=== PATIENT | female | born 1975 | race Caucasian/White ===

== ENCOUNTER 2019-05-07 10:14 | Observation (INO) | payer OTHER, SELFPAY ==
[2019-05-07] VITALS (7 sets, daily range): BP systolic 119–198; BP diastolic 60–99; PULSE 65–103; RESP 16–18; TEMP 36.4–37.6; O2SAT 96–99; BMI 31.3
--- NOTE | ~2019-05-07 | CT_ITS ---
EXAMINATION: CT abdomen pelvis w con INDICATION: Abdominal pain and vomiting TECHNIQUE: Computed tomographic images of the abdomen and pelvis were obtained after the administrati on of 100 cc of Omnipaque 350 intravenous contrast. The dose-length product (DLP) was 680.61 mGy-cm. Automated exposure control and iterative reconstruction technique were employed. COMPARISON: 06/16/2016 FINDINGS: Timing of the scan is delayed due to patient vomiting. The lung bases are clear. The heart size is normal. There is an 11 mm cyst in the right hepatic lobe. The spleen, pancreas, gallbladder, and adrenal glands are normal. The kidneys are unremarkable. The appendix is normal. No pathologicall y enlarged abdominal or pelvic lymph nodes are identified. There is no free intraperitoneal gas or ev idence of bowel obstruction. There is mild lumbar spondylosis. An IUD is present in expected positio n in the uterus. IMPRESSION: 1. No CT correlate for the patient's symptoms. Reviewed, dictated and finalized at location A. [facility]
--- NOTE | ~2019-05-07 | CT_ITS ---
EXAMINATION: CT brain wo con DATE: 05/08/2019 11:13 INDICATION: Headache and nausea and vomiting for 2 days TECHNIQUE: Computed tomography (CT) of the head was performed without intravenous contrast. The mA wa s adjusted according to patient size. Iterative reconstruction technique was employed. Exam dose: 52 9.67 mGy-cm total exam DLP. COMPARISON: None FINDINGS: No intracranial mass lesion or hemorrhage or cerebrovascular accident is evident. No midlin e shift or mass effect. No subdural or epidural hematoma. Normal ventricular size. No fracture or bone destruction of the cranial vault. The mastoid air cells and included paranasal si nuses are normally developed and aerated. IMPRESSION: No significant abnormality Reviewed, dictated and finalized at Location A. Reviewed, dictated and finalized at location B. [facility] IMPRESSION: No significant abnormality
--- NOTE | ~2019-05-07 | XR_ITS ---
XR chest 2V DATE: 05/08/2019 11:23 INDICATION: Nausea and vomiting, diarrhea. Headache. TECHNIQUE: PA and lateral views COMPARISON: None FINDINGS: Normal heart size. No hilar or mediastinal enlargement. No pulmonary infiltrate or consolid ation, pleural effusion or pulmonary vascular congestion or pneumothorax. IMPRESSION: No active cardiopulmonary disease Reviewed, dictated and finalized at location B. [facility]
[2019-05-07] MEDS: SODIUM CHLORIDE 0.9% IV 1,000 ML 999 ML IV CONT ×2 (10:32→12:24)
[2019-05-07] MEDS: ONDANSETRON INJ 4 MG/2 ML VIAL IV PUSH ×2 (10:32→12:35)
[2019-05-07 10:43] LABS: Basophils Absolute Auto 0.05 K/mm3 (0.00-0.10); Basophils Percent Auto 0.3 % (0.0-1.0); Eosinophils Absolute Auto 0.01 K/mm3 (0.02-0.50); Eosinophils Percent Auto 0.1 % (1.0-6.0); Hemoglobin 13.9 g/dL (12.0-15.0); Immature Granulocyte Absolute 0.14 K/mm3 (0.00-0.00); Immature Granulocyte Percent A 0.8 % (0.0-0.0); Lymphocytes Absolute Auto 1.96 K/mm3 (1.10-4.50); Lymphocytes Percent Auto 11.3 % (18.0-42.0); Mean Corpuscular HGB Conc 35.6 g/dL (32.0-36.0); Mean Corpuscular Hemoglobin 30.3 pg (27.0-31.0); Mean Corpuscular Volume 85.2 fL (78.0-102.0); Mean Platelet Volume 10.3 fl (9.2-11.8); Monocytes Absolute Auto 1.21 K/mm3 (0.10-0.90); Neutrophils Percent Auto 80.5 % (50.0-70.0); Platelet Count Result 428 K/mm3 (150-420); Red Blood Count 4.58 M/mm3 (4.20-5.40); Red Cell Distribution Width 11.9 % (11.6-14.4); White Blood Count 17.3 K/mm3 (4.8-10.8)
[2019-05-07] MEDS: PANTOPRAZOLE SODIUM IV 40 MG VIAL IV PUSH (10:51)
[2019-05-07 10:57] LABS: Add Urine Microscopic? YES; Appearance Urine Sl Cloudy (Clear); Bilirubin Urine 1+ (Negative); Blood Urine 3+ (Negative); Color Urine Yellow (Yellow); Glucose Urine UA Negative (Negative); Ketones Urine 2+ (Negative); Leukocyte Esterase Ur Negative LEU/UL (Negative); Nitrate Urine Negative (Negative); Protein Urine 2+ (Negative); Specific Grav Ur >= 1.030 (1.010-1.020); Urobilinogen Urine 0.2 mg/dL (0.2-1.0)
--- NOTE | 2019-05-07 10:58 | ED.NAVMDI ---
HPI - Nausea/Vomiting/Diarrhea General Chief complaint: Nausea/Vomiting/Diarrhea Stated complaint: AMBULANCE Time Seen by Provider: 05/07/19 10:30 Source: patient and EMS Mode of arrival: EMS Limitations: no limitations History of Present Illness HPI Narrative: Amelia is a 43-year-old female patient. She presents to the emergency room by ambulance from home. She states that she has been sick since yesterday since about 5:30 a.m. she has had nausea and vomiting. Initially it had some food material in it and then it is mostly clear and yellowish she has had numerous episodes of emesis. Now she has mainly retching. She has had some diarrhea, maybe 3-4 times, none today. She has some abdominal cramps with bouts of emesis. No history of cough or fever. No urinary symptoms. No one else at home has similar symptoms. MD elicited complaint: nausea, vomiting and diarrhea Pertinent past history: other ( history of depression) Onset (ago): day(s) ( since yesterday) Description of vomiting: watery Description of diarrhea: watery Associated nausea: Yes Associated abdominal pain: Yes Location of pain: diffuse Radiation: other ( no radiation. Just has intermittent generalized cramps.) Pain consistency: intermittent Severity: mild Quality: cramping Exacerbating factors: none Relieving factors: none Associated symptoms: other ( See HPI narrative for details) Treatment prior to arrival: none Related Data Home Medications Medication Instructions Recorded Confirmed gabapentin 300 mg PO HS 05/07/19 05/07/19 sertraline 75 mg PO HS 05/07/19 05/07/19 Allergies Allergy/AdvReac Type Severity Reaction Status Date / Time Penicillins AdvReac Redness of Verified 05/07/19 10:52 Skin Review of Systems Review of Systems: All systems reviewed & are unremarkable except as noted in HPI and below Constitutional: Constitutional: Reports no additional constitutional complaints, Denies chills and Denies fever(s) Eyes: Eyes: Reports no additional eye complaints and Denies change in vision ENT: Reports system reviewed and no additional complaints, except as documented, Denies dysphagia, Denies vertigo, Denies dizziness, Denies nasal congestion and Denies sore throat Cardiovascular: Cardiovascular: Reports no additional cardiovascular complaints, Denies chest pain and Denies radiating jaw, neck or arm pain Respiratory: Respiratory: Reports no additional respiratory complaints, Denies cough, Denies dyspnea and Denies wheezing Gastrointestinal: Gastrointestinal: Reports no additional gastrointestinal complaints, Reports diarrhea, Reports nausea and Reports vomiting Comments: abdominal cramps, intermittent, mild Genitourinary: Genitourinary: Reports no additional female genitourinary complaints, Denies hematuria and Denies dysuria Musculoskeletal: Musculoskeletal: Reports no additional musculoskeletal complaints, Denies back pain and Denies muscle cramps Integumentary/Breasts: Skin/Breast: Reports system reviewed and no additional complaints, except as docu, Denies erythema and Denies rash Neurologic: Reports system reviewed and no additional complaints, except as documented, Denies confusion, Denies vertigo, Denies dizziness, Denies syncope and Denies weakness Psychiatric: Psychiatric: Reports no additional psychiatric complaints and Reports depression Endocrine: Endocrine: Reports no additional endocrine complaints, Denies polydipsia and Denies polyuria Hematologic/Lymphatic: Hematologic/Lymphatic: Reports no additional hematologic/lymphatic complaints, Denies easy bleeding and Denies easy bruising Allergic/Immunologic: Allergic/Immunologic: Reports no additional allergic/immunologic complaints [facility] Past Medical History Medical History (Updated 05/07/19 @ 12:54 by Oswaldo Hernandez MD) Depression Radius/ulna fracture Family History Family History (Updated 05/07/19 @ 11:09 by Oswaldo Hernandez MD) Mother No problems noted.
[2019-05-07 11:02] LABS: Alanine Aminotransferase 18 U/L (14-59); Albumin Level 4.2 g/dL (3.4-5.0); Alkaline Phosphatase 73 U/L (46-116); Anion Gap 18.2 mmol/L (7-16); Aspartate Amino Transferase 19 U/L (15-37); Bilirubin,Total 0.6 mg/dL (0.00-1.00); Blood Urea Nitrogen 19 mg/dL (7-18); Calcium 9.3 mg/dL (8.5-10.1); Carbon Dioxide 21 mmol/L (21-32); Chloride 104 mmol/L (98-108); Estimated Glomerular Filt Rate 53; Glucose 150 mg/dL (70-99); Lipase 517 U/L (73-393); Osmolality Calculated 295 mOsm/kg (285-295); Potassium 3.2 mmol/L (3.5-5.1); Sodium 140 mmol/L (136-145); Total Protein 8.2 g/dL (6.4-8.2)
[2019-05-07 11:03] LABS: Bacteria Urine 1+ /hpf; Mucus Urine Moderate /lpf; Squamous Epithelial Cell Urine Moderate /hpf (Few); WBC Urine 0-3 /hpf (0-3)
[2019-05-07 11:18] LABS: Amylase 87 U/L (25-115)
[2019-05-07] MEDS: KCL 20 MEQ/SW 100 ML 100 ML 50 MEQ IVPB (12:25)
[2019-05-07] MEDS: SODIUM CHLORIDE 0.9% IV 1,000 ML 125 ML IV CONT ×2 (13:14→18:43)
[2019-05-07 13:21] LABS: Magnesium 1.6 mg/dL (1.8-2.4)
--- NOTE | 2019-05-07 13:30 | PC.NURSE ---
Patient brought to floor from ED per stretcher. Ambulated to bed. Oriented to room and floor. Call light within reach
--- NOTE | 2019-05-07 13:53 | PC.NURSE ---
Patient in bed resting quietly, denies nausea at this time
--- NOTE | 2019-05-07 14:29 | PC.NURSE ---
Patient in bed resting, IV fluids and potassium infusing. VSS. Sinus rhythm per telemetry
--- NOTE | 2019-05-07 15:36 | PM.IMHP ---
H&P: HPI History of Present Illness Chief complaint: AMBULANCE Narrative: Amelia Burkett is a 43 year old female THAT PRESENTED TO EMERGENCY ROOM TODAY COMPLAINING OF NAUSEA VOMITING AND DIARRHEA THAT SHE DEVELOPED YESTERDAY. SHE HAS A PAST HISTORY DEPRESSION AND MIGRAINE HEADACHES. ACCORDING TO PATIENT SHE HAS A HISTORY OF MIGRAINE HEADACHES THAT SHE IS NOT BEING TREATED FOR . SHE ALSO NOTED THAT SHE HAD 3-4 DIARRHEA bm BEFORE ADMISSION. HER VOMITING CONSISTED OF FOOD ORIGINALLY, SHE IS NOW MAINLY RETCHING. PATIENT ALSO NOTES THAT SHE USES CANNABIS ON REGULAR BASIS. SHE ALSO NOTED THAT SHE EXPERIENCES THIS ONCE A YEAR AND WHENEVER SHE GETS A CT COMPLETED OF HER abd NOTHING IS FOUND. SHE ALSO NOTED THAT WHEN SHE WAS YOUNGER SHE SUSTAINED AND INJURED TO HER NECK WHICH CAUSED HER TO HAVE MIGRAINE HEADACHES. SHE ALSO COMPLAINS OF HEADACHE TODAY. HER VITAL SIGNS AT THIS TIME ARE 96.6, 71, 18, 96% ON ROOM AIR, 133/65. PATIENT IS BEING ADMITTED FOR GASTROENTERITIS VERSUS CANNABINOID HYPEREMESIS SYNDROME, AND DEHYDRATION . WE WILL CONTINUE TO GIVE THE PATIENT CIPRO ANTIBIOTIC FOR THE ELEVATED BLOOD COUNT OF 17.3 ON ADMISSION, SHE WILL ALSO RECEIVE A MAG AND POTASSIUM RIDER FOR HYPO MAGNESIUM 1.6 AND HYPOKALEMIA WITH A POTASSIUM OF 3.2.PATIENT DENIES SOB, CP, PALPITATION, EXTREMITY NUMBNESS, LIGHTHEADNESS, DIZZINESS, CONSTIPATION, DIARRHEA, OR CHILLS OR FEVER. PATIENT AGREE THAT THEY ARE READY FOR DISCHARGE AND DISCHARGE PLAN. Review of Systems Constitutional: Constitutional: Reports fatigue and Reports poor appetite Cardiovascular: Cardiovascular: Denies chest pain at rest, Denies chest pain with activity and Denies dyspnea on exertion Respiratory: Respiratory: Denies chest congestion, Denies cough, Denies hemoptysis and Denies wheezing Gastrointestinal: Gastrointestinal: Denies abdominal pain, Reports diarrhea, Reports nausea and Reports vomiting Genitourinary: Genitourinary: Reports no additional female genitourinary complaints Musculoskeletal: Musculoskeletal: Reports neck pain Neurologic: Denies confusion, Denies vertigo, Denies dizziness, Denies syncope and Reports headache(s) [facility] Past Medical History Medical History (Updated 05/08/19 @ 13:22 by EDUARDA Allen) Depression Radius/ulna fracture Family History Family History (Updated 05/07/19 @ 11:09 by Oswaldo Hernandez MD) Mother No problems noted. Father No problems noted. Social History Social History (Updated 05/07/19 @ 13:54 by Bonnie Gray RN) Smoking status: Never smoker Additional smoking assessment comments: smoke cigarettes frequency amount unknown Alcohol intake: never Alcohol use details: denies alcohol use Substance use: current Substance use type: does not use and marijuana Other substance usage details: daily Gender identity (if verbalized by the patient): Female Spiritual care concerns: No Agree to blood products: Yes Meds Home Medications and Allergies Home Medications Medication Instructions Recorded Confirmed Type gabapentin 300 mg PO HS 05/07/19 05/07/19 History sertraline 75 mg PO HS 05/07/19 05/07/19 History Allergies Allergy/AdvReac Type Severity Reaction Status Date / Time Penicillins AdvReac Redness of Verified 05/07/19 10:52 Skin Vital Signs Vital Signs - 24 hr 05/07/19 10:24 05/07/19 12:30 05/07/19 13:08 Temperature 37.2 C Pulse Rate 103 H 85 87 Respiratory Rate 16 Blood Pressure 156/99 H 137/75 Pulse Oximetry 99 05/07/19 14:00 Temperature 37.6 C Pulse Rate 74 Respiratory Rate 18 Blood Pressure 119/70 Pulse Oximetry 96 Exam Const: General: ill appearing and uncomfortable Orientation/consciousness: patient oriented x3 Neck: Thyroid: tender Resp: Effort & Inspection: normal respiratory effort Cardio: Palpation: normal PMI Rate: regular rate GI: Inspection: normal to inspection Neuro: General: patient oriented x3
--- NOTE | 2019-05-07 15:45 | PC.NURSE ---
Patient in bed resting comfortably, IV fluids infusing. Patient denies nausea, no emesis since being brought to floor. Sinus rhythm per telemetry
--- NOTE | 2019-05-07 16:45 | PC.NURSE ---
Patient in bed. IV fluids infusing. Sinus rhythm per telemetry. VSS. Denies nausea at this time
--- NOTE | 2019-05-07 17:20 | PC.NURSE ---
Patient sitting in bed, eating supper. Tolerating clear liquids well, no nausea at this time. VSS, sinus rhythm per telemetry
[2019-05-07 17:26] LABS: Alanine Aminotransferase 17 U/L (14-59); Albumin Level 3.5 g/dL (3.4-5.0); Alkaline Phosphatase 61 U/L (46-116); Anion Gap 15.6 mmol/L (7-16); Aspartate Amino Transferase 18 U/L (15-37); Bilirubin,Total 0.5 mg/dL (0.00-1.00); Blood Urea Nitrogen 13 mg/dL (7-18); Carbon Dioxide 23 mmol/L (21-32); Chloride 109 mmol/L (98-108); Estimated CRCL calculation 77 ml/min; Estimated Glomerular Filt Rate > 60; Glucose 94 mg/dL (70-99); Osmolality Calculated 298 mOsm/kg (285-295); Potassium 3.6 mmol/L (3.5-5.1); Sodium 144 mmol/L (136-145); Total Protein 6.9 g/dL (6.4-8.2)
[2019-05-07] MEDS: MAGNESIUM SULF 2 GM/WATER 50ML 2 GM/50 ML BAG IVPB (18:48)
--- NOTE | 2019-05-07 18:50 | PC.NURSE ---
Patient in bed resting, IV fluids infusing. Sinus rhythm per telemetry. Denies nause
--- NOTE | 2019-05-07 19:37 | PC.NURSE ---
Mg started by previous nurse continues to infuse. Cipro to be started when completed. no nausea or vomitng present. Telemetry shows sinus rhythm
[2019-05-07] MEDS: SERTRALINE HCL 50 MG TABLET PO (20:35)
[2019-05-07] MEDS: CIPROFLOXACIN 400 MG/D5W 200ML 200 ML 200 MG IVPB (20:38)
[2019-05-07] MEDS: GABAPENTIN 300 MG CAPSULE PO (20:40)
--- NOTE | 2019-05-07 21:35 | PC.NURSE ---
NS continues at 125/hr, KCL and MG infused. Cipro almost completed . No nausea or vomiting present.
--- NOTE | 2019-05-07 21:38 | PC.NURSE ---
Mg completed. Unable to end medication on JUN. information left for pharmacy. No nausea or vomting. Fluids continue as ordered IV cipro started
--- NOTE | 2019-05-07 21:43 | PC.NURSE ---
Cipro completed. NS continues as ordered. VS stable. Telemetry shows sinus rhythm.
--- NOTE | 2019-05-07 22:55 | PC.NURSE ---
Awake, states has no nausea. No complaints of pain, turns self. NS infusing at 125ml/hr.
[2019-05-07] MEDS: SERTRALINE HCL 25 MG TABLET PO (23:33)
[2019-05-08] VITALS (10 sets, daily range): BP systolic 126–190; BP diastolic 65–90; PULSE 64–96; RESP 16–18; TEMP 35.9–36.9; O2SAT 72–99
--- NOTE | 2019-05-08 00:22 | PC.NURSE ---
Urine collection hat placed in toilet. Patient informed need to measure urine.
--- NOTE | 2019-05-08 01:05 | PC.NURSE ---
Eyes closed. No signs of nausea/vomiting.Telemetry waveform WNL. 1000ml 0.9NS continues @125ml/hr per IV pump.
[2019-05-08] MEDS: SODIUM CHLORIDE 0.9% IV 1,000 ML 125 ML IV CONT ×3 (03:43→21:16)
[2019-05-08] MEDS: ACETAMINOPHEN 325 MG TABLET 650 MG PO (03:48)
--- NOTE | 2019-05-08 04:04 | PC.NURSE ---
Right hand and wrist remain edematous, some decrease in swelling noted. Will continue to elevate right arm/hand on one pillow. Warm [place] applied. Patient instructed to remove blanket if too warm. Fan turned down to low per patient request. States 'must have fan to breathe.
[2019-05-08 06:12] LABS: Basophils Absolute Auto 0.05 K/mm3 (0.00-0.10); Basophils Percent Auto 0.4 % (0.0-1.0); Eosinophils Absolute Auto 0.05 K/mm3 (0.02-0.50); Eosinophils Percent Auto 0.4 % (1.0-6.0); Hematocrit 35.6 % (35.0-49.0); Immature Granulocyte Absolute 0.06 K/mm3 (0.00-0.00); Immature Granulocyte Percent A 0.4 % (0.0-0.0); Lymphocytes Absolute Auto 3.04 K/mm3 (1.10-4.50); Lymphocytes Percent Auto 22.3 % (18.0-42.0); Mean Corpuscular HGB Conc 33.7 g/dL (32.0-36.0); Mean Corpuscular Hemoglobin 29.9 pg (27.0-31.0); Mean Corpuscular Volume 88.6 fL (78.0-102.0); Mean Platelet Volume 10.4 fl (9.2-11.8); Monocytes Absolute Auto 1.15 K/mm3 (0.10-0.90); Monocytes Percent Auto 8.4 % (2.0-11.0); Neutrophils Absolute Auto 9.3 K/mm3 (1.7-7.2); Neutrophils Percent Auto 68.1 % (50.0-70.0); Platelet Count Result 332 K/mm3 (150-420); Red Blood Count 4.02 M/mm3 (4.20-5.40); Red Cell Distribution Width 11.9 % (11.6-14.4); White Blood Count 13.6 K/mm3 (4.8-10.8)
--- NOTE | 2019-05-08 07:21 | PC.NURSE ---
fluids infusing, voiding well, no nausea at this time, states not a breakfast person and would prefer to stay on liquid diet this am, no fever, pulse rate 70's, sinus rhythm, potassium 3.6 denies worsening pain, states about a 3/10, able to keep oral fluids down
[2019-05-08] MEDS: CIPROFLOXACIN 400 MG/D5W 200ML 200 ML 200 MG IVPB ×2 (08:25→21:12)
--- NOTE | 2019-05-08 08:28 | PC.NURSE ---
headache returning, norco given for pain, cipro started, fluids continue, tolerating liquid breakfast
[2019-05-08 08:45] LABS: Magnesium 2.3 mg/dL (1.8-2.4)
[2019-05-08] MEDS: ONDANSETRON INJ 4 MG/2 ML VIAL IV PUSH ×3 (08:56→17:47)
--- NOTE | 2019-05-08 08:57 | PC.NURSE ---
headache improved, nausea started, emesis x1, zofran given
--- NOTE | 2019-05-08 09:02 | PC.NURSE ---
emesis continues, no relief from zofran at this time
[2019-05-08] MEDS: PROCHLORPERAZINE EDISYLATE 10 MG/2 ML VIAL IM (09:39)
--- NOTE | 2019-05-08 09:59 | PC.NURSE ---
Sleeping at this time, no further vomiting at this time, telemetry SR 60's at this time, fluids infusing
--- NOTE | 2019-05-08 10:45 | PC.NURSE ---
No vomiting at this time, telemetry SR 60's, fluids infusing
--- NOTE | 2019-05-08 11:01 | PC.NURSE ---
Awake, up to WC to go to imaging for CT head and CXR, nausea when up and moving
--- NOTE | 2019-05-08 11:30 | PC.NURSE ---
Returned from imaging via WC, fluids infusing, nausea continues, no further emesis at this time
--- NOTE | 2019-05-08 12:00 | PC.NURSE ---
EMesis, new order for reglan obtained, awaiting pharmacy approval, fluids infusing
--- NOTE | 2019-05-08 13:00 | PC.NURSE ---
napping at intervals, nausea continues, no further vomiting noted
[2019-05-08] MEDS: METOCLOPRAMIDE HCL INJ 10 MG/2 ML VIAL 5 MG IV PUSH ×3 (13:19→23:50)
--- NOTE | 2019-05-08 13:24 | PM.IMPN ---
Progress Note: A&P Assessment and Plan (1) Gastroenteritis: Code(s): K52.9 - Noninfective gastroenteritis and colitis, unspecified Status: Acute Assessment and Plan: - PATIENT MAY NPO AND ADVANCE TOLERATED. - CONTINUE ZOFRAN ADDED COMPAZINE - CONTINUE IV TO PREVENT DEHYDRATION. - CONTINUE CIPRO - CONTINUE IMODIUM --CHEST X-RAY, HEAD CT AND CT OF THE ABDOMEN-NEGATIVE (2) Dehydration: Code(s): E86.0 - Dehydration Status: Acute Assessment and Plan: - SECONDARY TO NAUSEA VOMITING AND DEHYDRATION - CONTINUE IV FLUID - CONTINUE ANTI EMESIS AND ANTIDIARRHEA (3) Hypokalemia: Code(s): E87.6 - Hypokalemia Status: Acute Assessment and Plan: - POTASSIUM LEVEL 3.2 ON ADMISSION - K RIDER GIVEN - BMP IN A.M. - WILL REPLACE WITH SUPPLEMENT IF NEEDED (4) Cannabis abuse: Code(s): F12.10 - Cannabis abuse, uncomplicated Status: Acute Assessment and Plan: - PATIENT NOTES SHE USED CANNABIS ON A REGULAR BASIS. - EDUCATED ON THE IMPORTANCE RESTRAINING FROM DRUG USE (5) Cannabis hyperemesis syndrome concurrent with and due to cannabis abuse: Code(s): F12.188 - Cannabis abuse with other cannabis-induced disorder Status: Acute Assessment and Plan: - CONTINUE REGLAN AND ZOFRAN - STARTED LORAZEPAM - START CAPSAICIN AND SUGGEST WARMM SHOWER. (6) Electrolyte imbalance: Code(s): E87.8 - Other disorders of electrolyte and fluid balance, not elsewhere classified Status: Acute Assessment and Plan: - SECONDARY TO DEHYDRATION CAUSED BY NAUSEA VOMITING AND DIARRHEA - REPLACE MAGNESIUM AND POTASSIUM - CHECK ELECTROLYTES DAILY, REPLACE NEEDED Subjective Date/time seen: 05/08/19 13:24 PATIENT CONTINUES TO EXPERIENCE NAUSEA AND DRY HEAVING TODAY DURING HER CLEAR LIQUIDS MEALS THIS AM. SHE DID NOT EXPERIENCE ANY NAUSEA VOMITING OR DIARRHEA OVERNIGHT. SHE DOES DENY ABDOMINAL PAIN BUT HAVE SINCE THEN STARTED TO DEVELOPED HICCUPS. SHE ALSO STILL HAS A HEADACHE. MORE TEST WILL BE COMPLETED TODAY. PATIENT DENIES SOB, CP, PALPITATION, EXTREMITY NUMBNESS, LIGHTHEADNESS, DIZZINESS, CONSTIPATION, D OR CHILLS OR FEVER. Review of Systems Constitutional: Constitutional: Reports fatigue, Reports headache(s), Reports lethargy, Reports poor appetite and Reports weakness ENT: Denies vertigo, Denies dizziness, Reports headache(s) and Reports neck pain Cardiovascular: Cardiovascular: Denies chest pain, Denies chest pain at rest, Denies chest pain with activity, Denies syncope, Denies rapid heart rate, Denies palpitations, Denies dyspnea on exertion and Denies orthopnea Respiratory: Respiratory: Denies chest congestion, Denies cough, Denies hemoptysis, Denies dyspnea, Denies dyspnea on exertion and Denies wheezing Gastrointestinal: Gastrointestinal: Denies abdominal pain, Denies melena, Reports diarrhea, Reports nausea and Reports vomiting Genitourinary: Genitourinary: Reports no additional female genitourinary complaints Musculoskeletal: Musculoskeletal: Reports no additional musculoskeletal complaints and Reports neck pain Neurologic: Denies confusion, Denies vertigo, Denies dizziness, Denies syncope, Reports headache(s), Denies focal weakness, Denies loss of vision and Reports weakness Psychiatric: Psychiatric: Denies confusion Endocrine: Endocrine: Reports fatigue Allergic/Immunologic: Allergic/Immunologic: Denies wheezing Exam Const: General: cooperative, ill appearing and uncomfortable; No confusion Orientation/consciousness: patient oriented x3 and No confusion Neck: Neck: normal visual inspection Thyroid: tender Resp: Effort & Inspection: normal respiratory effort, no cough and not labored Auscultation: clear to auscultation bilaterally Cardio: Jugular venous distension: no JVD Palpation: normal PMI Rate: regular rate GI: Inspection: normal to inspection GI Palp: No abdominal tenderness Auscultation: normal bowel sounds
--- NOTE | 2019-05-08 13:51 | PC.NURSE ---
feels hungry but nausea continues, zofran given, fluids infusing
--- NOTE | 2019-05-08 14:12 | PC.NURSE ---
Telemetry SR 60's, fluids infusing, no vomiting at this time
--- NOTE | 2019-05-08 15:27 | P.HP_ITS ---
H&P: HPI History of Present Illness Chief complaint: AMBULANCE Narrative: Amelia Burkett is a 43 year old female [facility] Past Medical History Medical History (Updated 05/08/19 @ 13:22 by EDUARDA Allen) Depression Radius/ulna fracture Family History Family History (Updated 05/07/19 @ 11:09 by Oswaldo Hernandez MD) Mother No problems noted. Father No problems noted. Social History Social History (Updated 05/07/19 @ 13:54 by Bonnie Gray RN) Smoking status: Never smoker Additional smoking assessment comments: smoke cigarettes frequency amount unknown Alcohol intake: never Alcohol use details: denies alcohol use Substance use: current Substance use type: does not use and marijuana Other substance usage details: daily Gender identity (if verbalized by the patient): Female Spiritual care concerns: No Agree to blood products: Yes Meds Home Medications and Allergies Home Medications Medication Instructions Recorded Confirmed Type gabapentin 300 mg PO HS 05/07/19 05/07/19 History sertraline 75 mg PO HS 05/07/19 05/07/19 History Allergies Allergy/AdvReac Type Severity Reaction Status Date / Time Penicillins AdvReac Redness of Verified 05/07/19 10:52 Skin Vital Signs Vital Signs - 24 hr 05/07/19 16:00 05/07/19 20:00 05/07/19 23:00 Temperature 37.6 C 36.4 C Pulse Rate 76 69 80 Respiratory Rate 18 18 Blood Pressure 198/70 H 138/60 Pulse Oximetry 96 97 05/08/19 00:00 05/08/19 01:36 05/08/19 03:00 Temperature 36.2 C L Pulse Rate 83 72 70 Respiratory Rate 16 Blood Pressure 131/81 Pulse Oximetry 97 05/08/19 04:00 05/08/19 07:14 05/08/19 11:31 Temperature 36.6 C 35.9 C L 36.6 C Pulse Rate 64 72 71 Respiratory Rate 18 18 18 Blood Pressure 150/79 H 133/65 190/90 H Pulse Oximetry 98 96 96 H&P: Results Labs Labs: Short CBC 05/08/19 Range/Units 07:00 WBC 13.6 H (4.8-10.8) K/mm3 Hgb 12.0 (12.0-15.0) g/dL Hct 35.6 (35.0-49.0) % Plt Count 332 (150-420) K/mm3 BMP 05/07/19 17:03 Sodium 144 Potassium 3.6 Chloride 109 H Carbon Dioxide 23 BUN 13 Creatinine 0.87 Glucose 94 Calcium 8.0 L Liver Function 05/07/19 Range/Units 17:03 Total Bilirubin 0.5 (0.00-1.00) mg/dL AST 18 (15-37) U/L ALT 17 (14-59) U/L Alkaline Phosphatase 61 (46-116) U/L Albumin 3.5 (3.4-5.0) g/dL
--- NOTE | 2019-05-08 16:18 | PM.EVENT ---
Event Note Event Note Event Note: On examination this morning the patient stated that she felt much better and was asking for some breakfast. Later in the day however she developed more nausea and vomiting. Abdomen soft, lungs clear, normal cardiovascular exam including full pulses and normal capillary refill. Continue to advance diet. Will hold [place] as a potential cause of worsening nausea. Measures to treat potential cannabis hyperemesis syndrome have been initiated. I have reviewed the chart and examined the patient. I discussed the patient's care with Steffen Lucio APN and agree with her assessment plan.
--- NOTE | 2019-05-08 17:30 | PC.NURSE ---
pt up to restroom to change clothes and freshen up, iv restarted, family in room, pt drinks half of her clear ensure and refuses rest due to bad taste, hob elevated
--- NOTE | 2019-05-08 18:59 | PC.NURSE ---
pt resting in bed, iv running, appears to be sleeping, breathing even
[2019-05-08] MEDS: GABAPENTIN 300 MG CAPSULE PO (21:10)
[2019-05-08] MEDS: SERTRALINE HCL 50 MG TABLET 75 MG PO (21:10)
--- NOTE | 2019-05-08 21:42 | PC.NURSE ---
pt took meds without difficulty, states no pain and nausea is ok but that she has not tried to eat/drink since earlier
--- NOTE | 2019-05-08 23:01 | PC.NURSE ---
pt appears to be sleeping, iv running, no s/sx of n/v, breathing even
[2019-05-09 04:16] VITALS: BP 127/68; PULSE 74; RESP 16; TEMP 36.9; O2SAT 98
[2019-05-09 05:22] LABS: Hematocrit 35.3 % (35.0-49.0); Mean Corpuscular Hemoglobin 29.6 pg (27.0-31.0); Mean Corpuscular Volume 86.9 fL (78.0-102.0); Mean Platelet Volume 10.3 fl (9.2-11.8); Platelet Count Result 322 K/mm3 (150-420); Red Blood Count 4.06 M/mm3 (4.20-5.40); Red Cell Distribution Width 11.6 % (11.6-14.4); White Blood Count 10.5 K/mm3 (4.8-10.8)
[2019-05-09] MEDS: METOCLOPRAMIDE HCL INJ 10 MG/2 ML VIAL 5 MG IV PUSH ×2 (05:43→13:01)
[2019-05-09] MEDS: SODIUM CHLORIDE 0.9% IV 1,000 ML 125 ML IV CONT (05:44)
[2019-05-09 05:56] LABS: Alanine Aminotransferase 20 U/L (14-59); Albumin Level 3.1 g/dL (3.4-5.0); Alkaline Phosphatase 55 U/L (46-116); Anion Gap 11.9 mmol/L (7-16); Aspartate Amino Transferase 20 U/L (15-37); Bilirubin,Total 0.5 mg/dL (0.00-1.00); Blood Urea Nitrogen 8 mg/dL (7-18); Calcium 7.7 mg/dL (8.5-10.1); Carbon Dioxide 25 mmol/L (21-32); Chloride 107 mmol/L (98-108); Estimated CRCL calculation 82 ml/min; Estimated Glomerular Filt Rate > 60; Glucose 93 mg/dL (70-99); Osmolality Calculated 290 mOsm/kg (285-295); Potassium 2.9 mmol/L (3.5-5.1); Sodium 141 mmol/L (136-145); Total Protein 6.4 g/dL (6.4-8.2)
[2019-05-09 08:00] VITALS: BP 136/74; PULSE 68; RESP 16; TEMP 36; O2SAT 97
[2019-05-09] MEDS: CIPROFLOXACIN 400 MG/D5W 200ML 200 ML 200 MG IVPB (08:45)
[2019-05-09 09:23] LABS: Amylase 44 U/L (25-115); Lipase 139 U/L (73-393)
[2019-05-09] MEDS: KCL 20 MEQ/SW 100 ML 100 ML 50 MEQ IVPB (10:34)
--- NOTE | 2019-05-09 11:50 | PM.DS ---
DS: Diagnosis Admitting Diagnosis Admitting Diagnosis: Noninfective gastroenteritis and colitis, unspecified Discharge Diagnosis (1) Gastroenteritis: Code(s): K52.9 - Noninfective gastroenteritis and colitis, unspecified Status: Acute Assessment and Plan: - continue bland diet and avoid dairy products for 7 days - will discharge with Zofran - drink plenty of fluids to prevent dehydration - CONTINUE CIPRO - CONTINUE IMODIUM (2) Dehydration: Code(s): E86.0 - Dehydration Status: Acute Assessment and Plan: - SECONDARY TO NAUSEA VOMITING AND DEHYDRATION - continue to drink plenty of fluids for hydration - CONTINUE ANTI EMESIS AND ANTIDIARRHEA (3) Hypokalemia: Code(s): E87.6 - Hypokalemia Status: Acute Assessment and Plan: - patient infused with K rider before discharge. - patient instructed to follow-up with primary care physician in 1 week to get repeat potassium level (4) Cannabis abuse: Code(s): F12.10 - Cannabis abuse, uncomplicated Status: Acute Assessment and Plan: - PATIENT NOTES SHE USED CANNABIS ON A REGULAR BASIS. - EDUCATED ON THE IMPORTANCE RESTRAINING FROM DRUG USE (5) Cannabis hyperemesis syndrome concurrent with and due to cannabis abuse: Code(s): F12.188 - Cannabis abuse with other cannabis-induced disorder Status: Acute Assessment and Plan: - CONTINUE ZOFRAN (6) Electrolyte imbalance: Code(s): E87.8 - Other disorders of electrolyte and fluid balance, not elsewhere classified Status: Acute Assessment and Plan: - SECONDARY TO DEHYDRATION CAUSED BY NAUSEA VOMITING AND DIARRHEA - follow-up with primary care physician for repeat DS: Summary Hospital Course Hospital Course: admission H&P Amelia Burkett is a 43 year old female THAT PRESENTED TO EMERGENCY ROOM TODAY COMPLAINING OF NAUSEA VOMITING AND DIARRHEA THAT SHE DEVELOPED YESTERDAY. SHE HAS A PAST HISTORY DEPRESSION AND MIGRAINE HEADACHES. ACCORDING TO PATIENT SHE HAS A HISTORY OF MIGRAINE HEADACHES THAT SHE IS NOT BEING TREATED FOR . SHE ALSO NOTED THAT SHE HAD 3-4 DIARRHEA bm BEFORE ADMISSION. HER VOMITING CONSISTED OF FOOD ORIGINALLY, SHE IS NOW MAINLY RETCHING. PATIENT ALSO NOTES THAT SHE USES CANNABIS ON REGULAR BASIS. SHE ALSO NOTED THAT SHE EXPERIENCES THIS ONCE A YEAR AND WHENEVER SHE GETS A CT COMPLETED OF HER abd NOTHING IS FOUND. SHE ALSO NOTED THAT WHEN SHE WAS YOUNGER SHE SUSTAINED AND INJURED TO HER NECK WHICH CAUSED HER TO HAVE MIGRAINE HEADACHES. SHE ALSO COMPLAINS OF HEADACHE TODAY. HER VITAL SIGNS AT THIS TIME ARE 96.6, 71, 18, 96% ON ROOM AIR, 133/65. PATIENT IS BEING ADMITTED FOR GASTROENTERITIS VERSUS CANNABINOID HYPEREMESIS SYNDROME, AND DEHYDRATION . WE WILL CONTINUE TO GIVE THE PATIENT CIPRO ANTIBIOTIC FOR THE ELEVATED BLOOD COUNT OF 17.3 ON ADMISSION, SHE WILL ALSO RECEIVE A MAG AND POTASSIUM RIDER FOR HYPO MAGNESIUM 1.6 AND HYPOKALEMIA WITH A POTASSIUM OF 3.2. today patient nausea vomiting has resolved. Yesterday nausea vomiting occurred due to use of hydrocodone. Patient condition has resolved today Patient able to tolerate all meals , slept well and ambulate at baseline. Patient denies SOB, CP, palpitation, extremity numbness, lightheadness, dizziness, constipation, diarrhea, or chills or fever. Patient agree that they are ready for discharge and discharge plan. Time Spent with Patient Time attestation: Total time spent providing and/or coordinating discharge services: Exam Const: General: cooperative, ill appearing and uncomfortable; No confusion Orientation/consciousness: patient oriented x3 and No confusion Neck: Neck: normal visual inspection Thyroid: tender Resp: Effort & Inspection: normal respiratory effort, no cough and not labored Auscultation: clear to auscultation bilaterally Cardio: Jugular venous distension: no JVD Palpation: normal PMI Rate: regular rate GI: Inspectio
[2019-05-09 12:00] VITALS: BP 132/74; PULSE 70; RESP 18; TEMP 36.1; O2SAT 97
--- NOTE | 2019-05-14 14:31 | PC.NURSE ---
Discharge call back [phone] Understood all DC instructions. Canceled follow-up appointment with PCP because she felt better.
== END 2019-05-09 15:25 | disposition home or self-care (01) ==
LOC: CHSED 12:54 → CHS2ND 13:05
PROVIDERS: Nurse Practitioner; Admitting Provider Surgery; Emergency Provider Surgery; Visit Provider Surgery
DX: E86.0 Dehydration (principal); K52.9 Noninfective gastroenteritis and colitis, unspecified; E87.6 Hypokalemia; E83.42 Hypomagnesemia; F32.9 Major depressive disorder, single episode, unspecified; F12.90 Cannabis use, unspecified, uncomplicated; G43.909 Migraine, unspecified, not intractable, without status migrainosus; Z72.0 Tobacco use
CPT/HCPCS: 36415; 70450; 71046; 74177; 80053; 81001; 82150; 83690; 83735; 85025; 85027; 96361; 96365; 96366; 96367; 96372; 96375; 96376; 99285; A9270; C9113; G0378; G0379; J0744; J0780; J2405; J2765; J3475; J3480; J7030; Q9965

== ENCOUNTER 2020-05-20 08:08 | Outpatient (CLI) | payer OTHER, SELFPAY ==
--- NOTE | ~2020-05-20 | XR_ITS ---
XR_CERV2-3V_CR DATE: 05/20/2020 08:25 INDICATION: Acute neck pain in right side for 2 weeks. No known injury. TECHNIQUE: AP, open-mouth, lateral views COMPARISON: None FINDINGS: There is reversal of cervical curvature. C1 and C2 are normally aligned and the odontoid process is intact. There is minimal anterolisthesis at C4-5. There is moderate degenerative disc disease and prominent anterior spurring at C5-6 There is moderately severe degenerative disc disease and mild retrolisthesis at C6-7. No fracture or dislocation or locked facet or prevertebral soft tissue swelling. IMPRESSION: Reversal cervical curvature Mild anterolisthesis at C4-5 Degenerative disc disease at C5-6 and C6-7 Reviewed, dictated and finalized at [facility]. Reviewed, dictated and finalized at [facility]. [employer]
== END 2020-05-20 08:09 | disposition home or self-care (01) ==
LOC: CHSIMG 08:10
PROVIDERS: PCP Physician Assistant; Visit Provider Physician Assistant
DX: M54.2 Cervicalgia (principal)
CPT/HCPCS: 72040

== ENCOUNTER 2020-12-26 17:41 | Emergency (ER) | payer OTHER, SELFPAY ==
[2020-12-26 17:52] VITALS: BP 141/90; PULSE 89; RESP 16; TEMP 36.6; O2SAT 97
--- NOTE | 2020-12-26 18:04 | ED.WOUNDLAC ---
HPI - Wound/Laceration General Chief Complaint: Wound/Laceration Stated Complaint: CUT FINGER Time Seen by Provider: 12/26/20 17:54 Source: patient and RN notes reviewed Mode of arrival: ambulatory Limitations: no limitations History of Present Illness HPI narrative: superficial left index finger 0.5 cm laceration Onset (ago): hour(s) (1) Extremity Location: Left: hand Place: work Patient tetanus UTD: Yes Context: accidental Associated symptoms: pain Treatments prior to arrival: bandage Related Data Home Medications Medication Instructions Recorded Confirmed gabapentin 300 mg PO HS 05/07/19 12/26/20 sertraline 75 mg PO HS 05/07/19 12/26/20 Allergies Allergy/AdvReac Type Severity Reaction Status Date / Time hydrocodone AdvReac Mild nausea Verified 05/09/19 11:39 vomiting Penicillins AdvReac Redness of Verified 05/07/19 10:52 Skin Review of Systems Review of Systems: All systems reviewed & are unremarkable except as noted in HPI and below Musculoskeletal: Comments: 0.5 cm superficial laceration left index finger PMFSH Past Medical History Medical History (Updated 12/26/20 @ 18:08 by Lam Castillo MD) Depression Radius/ulna fracture Family History Family History (Updated 05/07/19 @ 11:09 by Oswaldo HernandezMD) Mother No problems noted. Father No problems noted. Social History Social History (Updated 05/07/19 @ 13:54 by Bonnie Gray RN) Smoking status: Never smoker Additional smoking assessment comments: smoke cigarettes frequency amount unknown Alcohol intake: never Alcohol use details: denies alcohol use Substance use: current Substance use type: does not use and marijuana Other substance usage details: daily Gender identity (if verbalized by the patient): Female Spiritual care concerns: No Agree to blood products: Yes Exam Const: General: no acute distress Orientation/consciousness: patient oriented x3 HENMT: Head: normal to inspection Ears: external ears normal General nose exam: Normal external nose present and Normal nares present Mouth: Yes moist mucous membranes Eyes: Conjunctivae: conjunctivae normal Pupils: Equal, round and reactive pupils present EOM: EOMs intact bilaterally Neck: Neck: normal visual inspection Chest: Chest palpation & inspection: normal inspection of the chest Resp: Effort & Inspection: normal respiratory effort Auscultation: clear to auscultation bilaterally Cardio: Rate: regular rate Rhythm: regular rhythm GI: GI Palp: Yes Soft to palpation Percussion: Yes normal to percussion Auscultation: normal bowel sounds Back/Spine/Pelvis: Back: no CVA tenderness Skin: General skin exam: normal color Rashes: no rashes Neuro: General: patient oriented x3, moves all extremities, no focal motor deficits and CN's II-XI intact bilaterally Extrem: Other: 0.5 cm laceration well approximated superficial left index finger Psych: Appearance: grossly normal Mental Status: mental status grossly normal Affect: normal affect Attitude: cooperative Thought content: Yes Normal thought content present Course Course Emergency Course: Stable, pain-free patient. Reevaluation(s) Reevaluation #1: Repaired left index finger. Pt for home. Date: 12/26/20 Time: 18:03 Vital Signs Vital signs: Vital Signs Temperature 36.6 C 12/26/20 17:52 Pulse Rate 89 12/26/20 17:52 Respiratory Rate 16 12/26/20 17:52 Blood Pressure 141/90 H 12/26/20 17:52 Pulse Oximetry 97 12/26/20 17:52 Temperature 36.6 C 12/26/20 17:52 Pulse Rate 89 12/26/20 17:52 Respiratory Rate 16 12/26/20 17:52 Blood Pressure 141/90 H 12/26/20 17:52 Pulse Oximetry 97 12/26/20 17:52 Procedures Laceration Laceration 1: Date: 12/26/20 Time: 17:59 Site: upper extremity (left index finger laceration.) Side (If applicable): left Size (cm): 0.5 Description: flap
[2020-12-26 18:07] VITALS: RESP 14; O2SAT 100
== END 2020-12-26 18:07 | disposition home or self-care (01) ==
PROVIDERS: Emergency Provider Emergency Medicine; PCP Physician Assistant
DX: S61.211A Laceration without foreign body of left index finger without damage to nail, initial encounter (principal); W45.8XXA Other foreign body or object entering through skin, initial encounter
CPT/HCPCS: 99283

== ENCOUNTER 2021-07-31 13:14 | Outpatient (CLI) | payer OTHER, SELFPAY ==
--- NOTE | ~2021-07-31 | XR_ITS ---
EXAMINATION: XR ankle LT min 3V DATE: 07/31/2021 13:44 INDICATION: Left ankle pain TECHNIQUE: Anteroposterior, lateral, mortise, and additional oblique view of the ankle were obtained. COMPARISON: None. FINDINGS: There is no fracture, dislocation, or subluxation. Mild osteoarthritis is noted in the midf oot. There are posterior and plantar calcaneal enthesophytes. IMPRESSION: 1. No acute osseous abnormality. Reviewed, dictated and finalized at location [facility].
--- NOTE | ~2021-07-31 | XR_ITS ---
EXAMINATION: XR foot LT min 3V DATE: 07/31/2021 13:44 INDICATION: Lateral ankle and foot pain TECHNIQUE: Dorsoplantar, lateral, and 2 oblique views of the left foot were obtained. COMPARISON: None. FINDINGS: There is no fracture, dislocation, or subluxation. Mild osteoarthritis is noted in the midf oot. There are posterior and plantar calcaneal enthesophytes. IMPRESSION: 1. No acute osseous abnormality. Reviewed, dictated and finalized at location [facility].
== END 2021-07-31 13:15 | disposition home or self-care (01) ==
LOC: CHSLAB 13:16
PROVIDERS: PCP Physician Assistant; Visit Provider Physician Assistant
DX: M25.572 Pain in left ankle and joints of left foot (principal)
CPT/HCPCS: 73610; 73630

== ENCOUNTER 2021-11-17 12:52 | Emergency (ER) | payer OTHER, SELFPAY ==
--- NOTE | ~2021-11-17 | CT_ITS ---
EXAMINATION: CT brain wo con DATE: 11/17/2021 13:44 INDICATION: Head injury, scalp laceration TECHNIQUE: Computed tomography (CT) of the head was performed without intravenous contrast. The mA wa s adjusted according to patient size. Iterative reconstruction technique was employed. Exam dose: 52 9.67 mGy-cm total exam DLP. COMPARISON: 05/08/2019 CT brain FINDINGS: No intracranial mass lesion or hemorrhage or cerebrovascular accident. No midline shift or mass effect. Normal ventricular size. No subdural or epidural hematoma. Orbital contents appear renee l. Minimal right frontal scalp soft tissue swelling. No radiopaque soft tissue foreign body or subcutane ous emphysema. No coup or contrecoup intracranial injury is evident. The mastoid air cells and included paranasal sinuses are unremarkable. IMPRESSION: Mild right frontal scalp soft tissue swelling; no radiopaque foreign body or subcutaneou s emphysema, skull fracture or coup or contrecoup intracranial injury Reviewed, dictated and finalized at [facility]. Reviewed, dictated and finalized at [facility]. IMPRESSION: Mild right frontal scalp soft tissue swelling; no radiopaque forei gn body or subcutaneous emphysema, skull fracture or coup or contrecoup intracr anial injury
--- NOTE | 2021-11-17 13:07 | ED.HEATRA ---
HPI - Head Injury General Chief complaint: Head Injury Stated complaint: hit head on pipe Time Seen by Provider: 11/17/21 13:07 Source: patient Mode of arrival: ambulatory History of Present Illness HPI Narrative: 46-year-old female got up from a sitting position and in the process struck head on a metal pipe 2 hours ago. She presents with -- 1.5 cm laceration over the frontal region. No loss of consciousness. no headache. No vomiting. No focal deficit. no cervical pain. MD Complaint: head injury Onset (ago): hour(s) ( 2 hours ago) Mechanism of Injury: work related injury Place: work Loss of Consciousness: no Location of injury: frontal Quality: sharp Radiation: none Other Injuries: none Related Data Home Medications Medication Instructions Recorded Confirmed gabapentin 300 mg capsule 300 mg PO HS 05/07/19 11/17/21 sertraline 50 mg tablet 75 mg PO HS 05/07/19 11/17/21 Allergies Allergy/AdvReac Type Severity Reaction Status Date / Time hydrocodone AdvReac Mild nausea Verified 11/17/21 13:22 vomiting Penicillins AdvReac Redness of Verified 11/17/21 13:22 Skin Review of Systems Review of Systems: All systems reviewed & are unremarkable except as noted in HPI and below Constitutional: Constitutional: Reports as per HPI and Reports no additional constitutional complaints Eyes: Eyes: Reports as per HPI and Reports no additional eye complaints ENT: Reports system reviewed and no additional complaints, except as documented and Reports as per HPI Cardiovascular: Cardiovascular: Reports as per HPI and Reports no additional cardiovascular complaints Respiratory: Respiratory: Reports as per HPI and Reports no additional respiratory complaints Gastrointestinal: Gastrointestinal: Reports as per HPI and Reports no additional gastrointestinal complaints Genitourinary: Genitourinary: Reports no additional female genitourinary complaints and Reports as per HPI Musculoskeletal: Musculoskeletal: Reports no additional musculoskeletal complaints and Reports as per HPI Integumentary/Breasts: Skin/Breast: Reports system reviewed and no additional complaints, except as docu and Reports as per HPI Comments: 1.5 cm frontal laceration of scalp Neurologic: Reports system reviewed and no additional complaints, except as documented and Reports as per HPI Psychiatric: Psychiatric: Reports no additional psychiatric complaints and Reports as per HPI Endocrine: Endocrine: Reports no additional endocrine complaints and Reports as per HPI Hematologic/Lymphatic: Hematologic/Lymphatic: Reports no additional hematologic/lymphatic complaints and Reports as per HPI Allergic/Immunologic: Allergic/Immunologic: Reports no additional allergic/immunologic complaints and Reports as per HPI PMFSH Past Medical History Medical History Depression Radius/ulna fracture Family History Family History Mother No problems noted. Father No problems noted. Social History Social History Smoking status: Never smoker Additional smoking assessment comments: smoke cigarettes frequency amount unknown Alcohol intake: never Alcohol use details: denies alcohol use Substance use: current Substance use type: does not use and marijuana Other substance usage details: daily Gender identity (if verbalized by the patient): Female Spiritual care concerns: No Agree to blood products: Yes Exam Const: General: healthy appearing and no acute distress Nutritional Appearance: well nourished Orientation/consciousness: patient oriented x3 Limitations: no limitations HENMT: Head: normal to inspection ( 1.5 cm scalp laceration in the frontal) Ears: external ears normal General nose exam: Normal external nose present Face and sinus: normal facial exam
[2021-11-17 13:18] VITALS: BP 151/92; PULSE 85; RESP 18; TEMP 36.7; O2SAT 96
[2021-11-17 15:16] VITALS: BP 117/54; PULSE 72; RESP 16; TEMP 36.4; O2SAT 100
== END 2021-11-17 15:17 | disposition home or self-care (01) ==
PROVIDERS: Emergency Provider Internal Medicine Critical Care Medicine
DX: S01.01XA Laceration without foreign body of scalp, initial encounter (principal); W22.8XXA Striking against or struck by other objects, initial encounter
CPT/HCPCS: 12001; 70450; 99284

== ENCOUNTER 2022-02-07 18:38 | Observation (INO) | payer OTHER, SELFPAY ==
[2022-02-07] VITALS (7 sets, daily range): BP systolic 134–215; BP diastolic 78–104; PULSE 76–87; RESP 14–20; TEMP 36.3–36.8; O2SAT 97–99
--- NOTE | ~2022-02-07 | CT_ITS ---
EXAMINATION: CT abdomen pelvis wo con DATE: 02/07/2022 20:35 INDICATION: Nausea vomiting and diarrhea TECHNIQUE: Computed tomography (CT) of the abdomen and pelvis was performed without intravenous contr ast. The dose-length product (DLP) was 781.98 mGy-cm. Automated exposure control and iterative recons truction technique were employed. COMPARISON: 05/07/2019 FINDINGS: The lung bases are clear. The heart size is normal. There is a 1.5 cm cyst of the right hep atic lobe. The spleen, pancreas, gallbladder, and adrenal glands are normal. The kidneys are unremark able. No pathologically enlarged abdominal or pelvic lymph nodes are identified. There is no free int raperitoneal gas or evidence of bowel obstruction. An IUD is present in the uterus in expected positi on. The appendix is normal. There is questionable mild wall thickening of the transverse colon which is contains minimal stool and gas. There is mild lumbar spondylosis. IMPRESSION: 1. Possible wall thickening of the transverse colon which may be due to incomplete distention versus mild colitis. Reviewed, dictated and finalized at [facility]. IMPRESSION: 1. Possible wall thickening of the transverse colon which may be due to incompl ete distention versus mild colitis.
--- NOTE | 2022-02-07 18:59 | ED.GENADULT ---
HPI - General Adult General Chief complaint: Nausea/Vomiting/Diarrhea Stated complaint: throwing up since early Tuesday morning Source: patient Mode of arrival: ambulatory Limitations: no limitations History of Present Illness HPI narrative: 46-YEAR-OLD WHITE FEMALE COMPLAINING NAUSEA VOMITING DIARRHEA FOR THE LAST 40 HOURS. HX SAME SX YEARLY FOR 10 YEARS. FRIEND THINKS IT MIGHT BE RELATED TO THC USE. CRAMPY ABDOMINAL PAIN INTERMITTENT. PT RELATED PAIN SECONDARY TO CASHEWS SHE ATE. PT RELUCTANT TO ANSWER QUESTIONS Related Data Home Medications Medication Instructions Recorded Confirmed gabapentin 300 mg capsule 300 mg PO HS 05/07/19 02/07/22 sertraline 50 mg tablet 75 mg PO HS 05/07/19 02/07/22 Allergies Allergy/AdvReac Type Severity Reaction Status Date / Time hydrocodone AdvReac Mild nausea Verified 11/17/21 13:22 vomiting Penicillins AdvReac Redness of Verified 11/17/21 13:22 Skin Review of Systems Review of Systems: All systems reviewed & are unremarkable except as noted in HPI and below Constitutional: Constitutional: Reports no additional constitutional complaints Eyes: Eyes: Reports no additional eye complaints ENT: Reports system reviewed and no additional complaints, except as documented Cardiovascular: Cardiovascular: Reports no additional cardiovascular complaints Respiratory: Respiratory: Reports no additional respiratory complaints Gastrointestinal: Gastrointestinal: Reports as per HPI, Reports no additional gastrointestinal complaints, Reports abdominal pain, Denies bloating, Denies constipation, Denies heartburn, Reports diarrhea, Reports nausea and Reports vomiting Genitourinary: Genitourinary: Reports no additional female genitourinary complaints Musculoskeletal: Musculoskeletal: Reports no additional musculoskeletal complaints Integumentary/Breasts: Skin/Breast: Reports system reviewed and no additional complaints, except as docu Neurologic: Reports system reviewed and no additional complaints, except as documented Psychiatric: Psychiatric: Reports no additional psychiatric complaints Hematologic/Lymphatic: Hematologic/Lymphatic: Reports no additional hematologic/lymphatic complaints PMFSH Past Medical History Medical History Depression Radius/ulna fracture Family History Family History Mother No problems noted. Father No problems noted. Social History Social History Smoking status: Never smoker Additional smoking assessment comments: smoke cigarettes frequency amount unknown Alcohol intake: never Alcohol use details: denies alcohol use Substance use: current Substance use type: does not use and marijuana Other substance usage details: daily Gender identity (if verbalized by the patient): Female Spiritual care concerns: No Agree to blood products: Yes Exam Const: General: healthy appearing and alert Nutritional Appearance: well nourished Orientation/consciousness: patient oriented x3 Limitations: behavioral limitations Other: PATIENT RELUCTANT TO ANSWER QUESTIONS FROM THIS EXAMINER. WHITE FEMALE LYING ON HER SIDE EYES CONJUNCTIVA PINK SCLERA NONICTERIC OROPHARYNX CLEAR WITH MOIST MUCOUS MEMBRANES NECK IS SUPPLE NO LYMPHADENOPATHY. LUNGS ARE CLEAR HEART IS REGULAR RATE AND RHYTHM WITHOUT MURMURS GALLOPS OR RUBS. BACK NONTENDER NO CVA TENDERNESS ABDOMEN POSITIVE BOWEL SOUNDS SOFT NONTENDER NO HEPATOSPLENOMEGALY OR MASSES NO CVA TENDERNESS NO HEPATOSPLENOMEGALY OR MASSES. EXTREMITIES NO CYANOSIS CLUBBING OR EDEMA. Course Course Emergency Course: PATIENT RECEIVED 4 MG OF ZOFRAN AND 30 MG OF TORADOL IV AND 1 L OF NORMAL SALINE. 2020 PATIENT FEELS BETTER AFTER THE ABOVE. WILL START HER ON NORMAL SALINE WITH 20 OF KCL PER L AT 500 CC/HOUR 06/07/2004 BR[facility]
--- NOTE | 2022-02-07 19:06 | PC.NURSE ---
REPORT TO ELAYNE MOON, NO QUESTIONS OR CONCERN AT THIS TIME.
[2022-02-07] MEDS: SODIUM CHLORIDE 0.9% IV 1,000 ML 999 ML IV CONT (19:25)
[2022-02-07] MEDS: ONDANSETRON INJ 4 MG/2 ML VIAL IV PUSH (19:25)
[2022-02-07] MEDS: KETOROLAC 30 MG/ML VIAL (*BKC) IV PUSH (19:25)
[2022-02-07 19:38] LABS: Basophils Absolute Auto 0.04 K/mm3 (0.00-0.10); Basophils Percent Auto 0.2 % (0.0-1.0); Eosinophils Absolute Auto 0.01 K/mm3 (0.02-0.50); Eosinophils Percent Auto 0.1 % (1.0-6.0); Hematocrit 42.5 % (35.0-49.0); Hemoglobin 14.5 g/dL (12.0-15.0); Immature Granulocyte Absolute 0.11 K/mm3 (0.00-0.00); Immature Granulocyte Percent A 0.6 % (0.0-0.0); Lymphocytes Percent Auto 9.1 % (18.0-42.0); Mean Corpuscular HGB Conc 34.1 g/dL (32.0-36.0); Mean Corpuscular Hemoglobin 29.6 pg (27.0-31.0); Mean Corpuscular Volume 86.7 fL (78.0-102.0); Mean Platelet Volume 10.6 fl (9.2-11.8); Monocytes Absolute Auto 0.92 K/mm3 (0.10-0.90); Monocytes Percent Auto 5.2 % (2.0-11.0); Neutrophils Absolute Auto 14.9 K/mm3 (1.7-7.2); Neutrophils Percent Auto 84.8 % (50.0-70.0); Platelet Count Result 388 K/mm3 (150-420); Red Cell Distribution Width 12.6 % (11.6-14.4); White Blood Count 17.5 K/mm3 (4.8-10.8)
--- NOTE | 2022-02-07 19:40 | PC.NURSE ---
Care resumed, pt resting c lights dimmed. Assisted pt to BR for urine, UA collected, explained POC and awaiting lab tests for CT that has been ordered.
[2022-02-07 19:42] LABS: Add Urine Microscopic? YES; Appearance Urine Clear (Clear); Bilirubin Urine 1+ (Negative); Blood Urine 3+ (Negative); Color Urine Yellow (Yellow); Glucose Urine UA Negative (Negative); Ketones Urine 3+ (Negative); Leukocyte Esterase Ur Negative LEU/UL (Negative); Nitrate Urine Negative (Negative); Protein Urine 3+ (Negative); Specific Grav Ur >= 1.030 (1.010-1.020); Urobilinogen Urine 0.2 mg/dL (0.2-1.0)
[2022-02-07 19:50] LABS: Amorphous Sediment Urine Heavy; Bacteria Urine 1+ /hpf; Mucus Urine Heavy /lpf; Pregnancy On Board Control Positive; Squamous Epithelial Cell Urine Many /hpf (Few); Urine Pregnancy Test Negative; WBC Urine 0-3 /hpf (0-3)
[2022-02-07 19:53] LABS: Alanine Aminotransferase 17 U/L (14-59); Albumin Level 4.1 g/dL (3.4-5.0); Alkaline Phosphatase 74 U/L (46-116); Anion Gap 13 mmol/L (8-16); Aspartate Amino Transferase 14 U/L (15-37); Bilirubin,Total 0.6 mg/dL (0.00-1.00); Blood Urea Nitrogen 17 mg/dL (7-18); Calcium 9.1 mg/dL (8.5-10.1); Carbon Dioxide 25 mmol/L (21-32); Chloride 100 mmol/L (98-108); Estimated CRCL calculation 64 ml/min; Estimated Glomerular Filt Rate 58; Glucose 131 mg/dL (70-99); Osmolality Calculated 289 mOsm/kg (285-295); Sodium 138 mmol/L (136-145); Total Protein 8.1 g/dL (6.4-8.2)
[2022-02-07 19:56] LABS: Lipase 48 U/L (73-393)
[2022-02-07 20:13] LABS: Ethanol 3 mg/dL (0-6); Magnesium 1.9 mg/dL (1.8-2.4)
[2022-02-07] MEDS: KCL 20MEQ/0.9% SOD CHL 1,000 ML 500 ML IV CONT (20:14)
[2022-02-07 20:16] LABS: Amphetamine Screen Urine Negative (Negative); Barbiturate Screen Urine Negative (Negative); Benzodiazepines Screen Urine Negative (Negative); Cannabinoid Screen Urine Positive (Negative); Cocaine Screen Urine Negative (Negative); Methadone Screen Urine Negative (Negative); Opiate Screen Urine Negative (Negative); Phencyclidine Screen Urine Negative (Negative)
--- NOTE | 2022-02-07 22:06 | PC.NURSE ---
Pt reports feeling much better, more talkative and has no pain at this time. VSS, ERP discussed POC and d/c home c pt.
[2022-02-07] MEDS: ONDANSETRON HCL ODT 4 MG TABLET 8 MG PO (22:24)
--- NOTE | 2022-02-07 22:32 | PC.NURSE ---
Pt is having extreme episodes of vomiting again at this time and doesn't want d/c home, states she will be unable to get her medications and unable to care for herself when feeling this terrible. ERP in to discuss POC for admit. Pt agreeable to admission.
--- NOTE | 2022-02-07 22:50 | PC.NURSE ---
Pt placed in gown and IV restarted per RN. Pt resting, call placed to hospitalist by ERP for admit.
--- NOTE | 2022-02-07 23:07 | PC.NURSE ---
Pts. BP elevated 187/97 orders obtained from ERP.
[2022-02-07] MEDS: PANTOPRAZOLE SODIUM IV 40 MG VIAL 80 MG IV PUSH (23:12)
[2022-02-07] MEDS: cloNIDine HCL 0.1 MG TABLET 0.2 MG PO (23:12)
--- NOTE | 2022-02-07 23:49 | PC.NURSE ---
Marsha Anderson RN called to 2nd floor and spoke w/this RN to let the floor know some history on the pt and the pt will be brought up shortly by the pt critical care rn.
[2022-02-08] VITALS: BP 136/85; PULSE 72; RESP 18; TEMP 37.2; O2SAT 97; BMI 32.3
--- NOTE | 2022-02-08 00:09 | ADMGEN ---
This patient, Amelia Burkett, was admitted to 2nd Floor Room 203-2. Patient oriented to hospital policies and general routines including ID bracelet, bed and alarms, visiting hours, pain management, procedures, bathroom and other care routines, personal items, smoking policy, room service/diet, and visiting hours. Information on how to activate the Rapid Response Team has been discussed. Patient are encouraged to report perceived risks to care and to ask questions if they do not understand what they are told or what they should do.
[2022-02-08] MEDS: CIPROFLOXACIN 400 MG/D5W 200ML 200 ML 200 MG IVPB (00:21)
[2022-02-08] MEDS: metroNIDAZOLE 500 MG/ISO 100ML 500 MG/100 ML BAG 100 MG IVPB ×2 (01:30→08:38)
[2022-02-08] MEDS: GABAPENTIN 300 MG CAPSULE PO (01:30)
--- NOTE | 2022-02-08 01:30 | PC.NURSE ---
Pt stated that she would like her water cup away from her to deter her from drinking fluids too quickly and causing more vomiting. This RN placed the cup by the sink in the room and instructed the pt that if she feels thirsty and her nausea has subsided, the pt should be able to drink fluids slowly at first then normally. Pt verbalized understanding. Side railsx2 and bed in lowest position for pt safety.
[2022-02-08] MEDS: SERTRALINE HCL 25 MG TABLET 75 MG PO (01:31)
[2022-02-08 05:29] LABS: Hematocrit 37.2 % (35.0-49.0); Hemoglobin 12.3 g/dL (12.0-15.0); Mean Corpuscular HGB Conc 33.1 g/dL (32.0-36.0); Mean Corpuscular Hemoglobin 29.2 pg (27.0-31.0); Mean Corpuscular Volume 88.4 fL (78.0-102.0); Mean Platelet Volume 10.7 fl (9.2-11.8); Platelet Count Result 314 K/mm3 (150-420); Red Blood Count 4.21 M/mm3 (4.20-5.40); Red Cell Distribution Width 12.8 % (11.6-14.4); White Blood Count 12.2 K/mm3 (4.8-10.8)
[2022-02-08 08:00] VITALS: BP 116/76; PULSE 72; RESP 16; TEMP 36.6; O2SAT 97
--- NOTE | 2022-02-08 08:31 | PM.SD2 ---
Same Day Admit/Disch: HPI History of Present Illness Chief complaint: NAUSEA VOMITING DIARRHEA ABD PAIN Narrative: Amelia Burkett is a 46 year old female that presented to the emergency department with complaints of nausea vomiting diarrhea and abdominal pain. Patient has a past medical history of depression and radial ulnar fracture. According to patient on Tuesday she ate a large amount of cashew nuts which she believes is the cause of her having abdominal pain and on Tuesday morning she woke up with nausea vomiting and diarrhea with abdominal pain. Patient also has a history of using medical marijuana for her mental illness. She was educated on Cannabinoid hyperemesis syndrome. WBC 17.5, hemoglobin 14.5, mag 2.5, platelets 388, sodium 138, potassium 3.0, BUN 17, creatinine 0.13, glucose 131, total bilirubin 0.6, AST 14, ALT 17, imaging indicated possible colitis. Patient was admitted treated for colitis. Patient notes that her symptoms have improved she is no longer experiencing vomiting. The patient denies SOB, CP, palpitation, extremity numbness, lightheadedness, dizziness, constipation, diarrhea, chills, or fever. Discharge instructions reviewed with patient, as well as provided in writing per nursing staff. The instructions also include specific and strict return/GO TO THE ER as well as f/u information. All questions have been answered, and the patient and/or family deny any further questions with discharge and discharge plan. [facility] Past Medical History Medical History Depression Radius/ulna fracture Family History Family History Mother No problems noted. Father No problems noted. Social History Social History Smoking status: Never smoker Additional smoking assessment comments: smoke cigarettes frequency amount unknown Alcohol intake: never Alcohol use details: denies alcohol use Substance use: current Substance use type: marijuana Other substance usage details: daily Last use: 02/07/2022 Gender identity (if verbalized by the patient): Female Spiritual care concerns: No Agree to blood products: Yes Has the Lack of Transportation Kept You From Medical Appointments or From Getting Medications?: No Within the Past 12 Months, Were You Worried Whether Your Food Would Run Out Before You Got Money to Buy More?: Never True What is Your Housing Situation Today?: I Have Housing Are You Worried That in the Next 2 Months, You May Not Have Your Own Housing to Live In?: No Do You Have Trouble Paying Your Heating Or Electricity Bill?: Yes Do You Have Trouble Paying For Medicines?: No Are You Currently Unemployed and Looking for Work?: No Highest Level of Education Completed: Associate Degree Do You Have Trouble With Childcare or the Care of a Family Member?: No Same Day Admit/Disch: Med Pre-admit Medications Home Medications Medication Instructions Recorded Confirmed Type gabapentin 300 mg capsule 300 mg PO HS 05/07/19 02/07/22 History sertraline 50 mg tablet 75 mg PO HS 05/07/19 02/07/22 History methylprednisolone 4 mg tablets in 4 mg PO DAILY #21 ea 02/07/22 Rx a dose pack (Medrol (Fabio)) ondansetron 4 mg disintegrating 4 mg PO Q4H PRN nausea and 02/07/22 Rx tablet vomiting #14 tabs potassium chloride 20 mEq 20 meq PO DAILY #10 tabs 02/07/22 Rx tablet,extended release(part/cryst) Saccharomyces boulardii 250 mg 250 mg PO BID 7 days #14 caps 02/08/22 Rx capsule (Florastor) ciprofloxacin HCl 250 mg tablet 250 mg PO Q12H 7 days #14 tabs 02/08/22 Rx (Cipro) metronidazole 500 mg tablet 500 mg PO Q12H 7 days #14 tabs 02/08/22 Rx Exam Narrative: GENERAL: This is a well-nourished, well-developed patient, in no apparent distress. HEAD: normocephalic, atraumatic. EYES: PERRL. Sclera clear/white. V
[2022-02-08] MEDS: ENOXAPARIN 40 MG/0.4 ML SYRINGE SUB-Q (08:34)
[2022-02-08] MEDS: PANTOPRAZOLE SODIUM IV 40 MG VIAL IV PUSH (08:35)
[2022-02-08] MEDS: SACCHAROMYCES BOULARDII 250 MG CAPSULE PO (08:38)
--- NOTE | 2022-02-08 12:52 | PC.NURSE ---
Patient discharged information reviewed. Scripts faxed to pharmacy. Taken to private vehicle by wheelchair. Able to transfer self to car.
--- NOTE | 2022-02-15 11:14 | PC.NURSE ---
Pt readmitted 2 days later.
== END 2022-02-08 12:40 | disposition home or self-care (01) ==
LOC: CHSED 23:27 → CHS2ND 23:33
PROVIDERS: Nurse Practitioner; Admitting Provider Internal Medicine; Emergency Provider Emergency Medicine; PCP Physician Assistant; Visit Provider Internal Medicine
DX: K52.9 Noninfective gastroenteritis and colitis, unspecified (principal); F12.188 Cannabis abuse with other cannabis-induced disorder; E87.6 Hypokalemia; F32.A Depression, unspecified; Z79.899 Other long term (current) drug therapy
CPT/HCPCS: 36415; 74176; 80053; 80307; 81001; 81025; 83690; 83735; 85025; 85027; 96361; 96365; 96366; 96367; 96372; 96375; 99285; A9270; C9113; G0378; G0379; J0744; J1650; J1885; J2405; J3480; J7030

== ENCOUNTER 2022-02-10 10:31 | Observation (INO) | payer OTHER, SELFPAY ==
[2022-02-10] VITALS (41 sets, daily range): BP systolic 124–246; BP diastolic 74–202; PULSE 56–92; RESP 6–29; TEMP 37.1–37.3; O2SAT 94–99; BMI 32.2
--- NOTE | ~2022-02-10 | CT_ITS ---
EXAMINATION: CT brain wo con DATE: 02/10/2022 12:21 INDICATION: Altered mental status, hypertension, fever and chills. TECHNIQUE: Computed tomography (CT) of the head was performed without intravenous contrast. Sagittal and coronal reconstructions were performed. The mA was adjusted according to patient size. Iterative reconstruction technique was employed. The dose-length product was 605.33 mGy-cm. COMPARISON: head CT dated 11/17/21 FINDINGS: No acute intracranial hemorrhage, acute infarction or abnormal extra axial fluid collection. Ventricl es are normal and symmetric. No mass/mass effect. The orbits, paranasal sinuses and mastoid air cells are normal. IMPRESSION: 1. Normal brain. No acute intracranial process. Reviewed, dictated and finalized at location A.
--- NOTE | 2022-02-10 10:40 | ECG_ITS ---
Measurements Intervals Denio Rate: 60 P: 56 VA: 136 QRS: 79 QRSD: 81 T: 18 QT: 395 QTc: 396 Interpretive Statements SINUS RHYTHM WITH SINUS ARRHYTHMIA NONSPECIFIC ST AND T-WAVE ABNORMALITY BORDERLINE ECG NO PREVIOUS ECG AVAILABLE FOR COMPARISON Electronically Signed On 02-10-2022 16:21:09 CDT by Chuy Alfredo M.D.
--- NOTE | 2022-02-10 10:47 | ED.GENADULT ---
HPI - General Adult General Chief complaint: Nausea/Vomiting/Diarrhea Stated complaint: Ambulance Time Seen by Provider: 02/10/22 10:38 History of Present Illness HPI narrative: Amelia is a 46F with a PMH of cannabis hyperemesis syndrome and colitis that presented to the ED with nausea and vomiting. It started a few days ago. She was admitted here and treated for colitis with flaglyl, cipro and solumedrol. Despite this she continues to have N/V and cannot tolerate PO and she feels cold. There is no CP, SOB or lightheadedness. She originally had some diarrhea with it. She does admit to smoking MJ regularly. Related Data Home Medications Medication Instructions Recorded Confirmed gabapentin 300 mg capsule 300 mg PO HS 05/07/19 02/10/22 sertraline 50 mg tablet 75 mg PO HS 05/07/19 02/10/22 Allergies Allergy/AdvReac Type Severity Reaction Status Date / Time hydrocodone AdvReac Mild nausea Verified 02/10/22 10:42 vomiting Penicillins AdvReac Redness of Verified 02/10/22 10:42 Skin Review of Systems Review of Systems: All systems reviewed & are unremarkable except as noted in HPI and below PMFSH Past Medical History Medical History Depression Radius/ulna fracture Family History Family History Mother No problems noted. Father No problems noted. Social History Social History Smoking status: Never smoker Additional smoking assessment comments: smoke cigarettes frequency amount unknown Alcohol intake: never Alcohol use details: denies alcohol use Substance use: current Substance use type: marijuana Other substance usage details: daily Last use: 02-09-2022 Has the Lack of Transportation Kept You From Medical Appointments or From Getting Medications?: No Within the Past 12 Months, Were You Worried Whether Your Food Would Run Out Before You Got Money to Buy More?: Never True What is Your Housing Situation Today?: I Have Housing Are You Worried That in the Next 2 Months, You May Not Have Your Own Housing to Live In?: No Do You Have Trouble Paying Your Heating Or Electricity Bill?: Yes Do You Have Trouble Paying For Medicines?: No Are You Currently Unemployed and Looking for Work?: No Highest Level of Education Completed: Associate Degree Do You Have Trouble With Childcare or the Care of a Family Member?: No Gender identity (if verbalized by the patient): Female Spiritual care concerns: No Agree to blood products: Yes Exam Const: Nutritional Appearance: well nourished Orientation/consciousness: patient oriented x3 Other: Was wrenching in to the emesis bag in distress HENMT: Head: normal to inspection Ears: external ears normal Eyes: Conjunctivae: conjunctivae normal Pupils: Equal, round and reactive pupils present Neck: Neck: normal visual inspection Chest: Chest palpation & inspection: normal inspection of the chest Resp: Effort & Inspection: normal respiratory effort Auscultation: clear to auscultation bilaterally Cardio: Rate: regular rate Rhythm: regular rhythm GI: Inspection: non-distended GI Palp: Yes Soft to palpation, Yes Tenderness to palpation present (GI) (diffusely TTP ), No Guarding due to palpation present (GI), No Palpable mass present and No Rebound tenderness present Auscultation: normal bowel sounds : Other: No CVA tenderness Skin: General skin exam: normal color Rashes: no rashes Neuro: General: patient oriented x3 and moves all extremities Cranial nerves: Yes Nystagmus not present Extrem: General: normal to inspection Psych: Mental Status: mental status grossly normal Course Course Emergency Course: Amelia was started on fluids and zofran which had little effect. After this she was given haldol with good effect and the wrenching slowed. However
[2022-02-10] MEDS: LACTATED RINGERS 1,000 ML 999 ML IV CONT (10:50)
[2022-02-10] MEDS: ONDANSETRON INJ 4 MG/2 ML VIAL IV PUSH (10:50)
[2022-02-10 11:00] LABS: Basophils Absolute Auto 0.05 K/mm3 (0.00-0.10); Basophils Percent Auto 0.4 % (0.0-1.0); Eosinophils Percent Auto 0.7 % (1.0-6.0); Hematocrit 40.9 % (35.0-49.0); Hemoglobin 14.3 g/dL (12.0-15.0); Immature Granulocyte Absolute 0.07 K/mm3 (0.00-0.00); Immature Granulocyte Percent A 0.5 % (0.0-0.0); Lymphocytes Absolute Auto 2.23 K/mm3 (1.10-4.50); Lymphocytes Percent Auto 16.2 % (18.0-42.0); Mean Corpuscular Hemoglobin 29.9 pg (27.0-31.0); Mean Corpuscular Volume 85.6 fL (78.0-102.0); Mean Platelet Volume 10.5 fl (9.2-11.8); Monocytes Absolute Auto 0.85 K/mm3 (0.10-0.90); Monocytes Percent Auto 6.2 % (2.0-11.0); Neutrophils Absolute Auto 10.4 K/mm3 (1.7-7.2); Platelet Count Result 368 K/mm3 (150-420); Red Blood Count 4.78 M/mm3 (4.20-5.40); Red Cell Distribution Width 12.1 % (11.6-14.4); White Blood Count 13.7 K/mm3 (4.8-10.8)
[2022-02-10] MEDS: HALOPERIDOL LACTATE 5 MG/ML VIAL IV PUSH (11:05)
--- NOTE | 2022-02-10 11:05 | PC.NURSE ---
pt continues to dry heave and have phlem spit up. additional medication administered as ordered. will continue to monitor.
[2022-02-10 11:15] LABS: Alanine Aminotransferase 20 U/L (14-59); Albumin Level 3.8 g/dL (3.4-5.0); Alkaline Phosphatase 72 U/L (46-116); Anion Gap 13 mmol/L (8-16); Aspartate Amino Transferase 15 U/L (15-37); Bilirubin,Total 0.5 mg/dL (0.00-1.00); Blood Urea Nitrogen 15 mg/dL (7-18); CRP < 0.5 mg/dL (0.0-0.9); Calcium 8.9 mg/dL (8.5-10.1); Carbon Dioxide 22 mmol/L (21-32); Chloride 102 mmol/L (98-108); Estimated CRCL calculation 77 ml/min; Estimated Glomerular Filt Rate > 60; Ethanol < 3 mg/dL (0-6); Glucose 120 mg/dL (70-99); Lipase 109 U/L (73-393); Osmolality Calculated 285 mOsm/kg (285-295); Potassium 3.5 mmol/L (3.5-5.1); Sodium 137 mmol/L (136-145); Total Protein 7.5 g/dL (6.4-8.2)
[2022-02-10 11:30] LABS: Lactic Acid Reflex 1.2 mmol/L (0.4-2.0)
--- NOTE | 2022-02-10 11:50 | PC.NURSE ---
PT IS RESTING ON STRETCHER, BP REMAINS ELEVATED. ERP NOTIFIED AND ORDERS ARE PLACED. WILL CONTINUE TO MONITOR.
[2022-02-10] MEDS: METOPROLOL TARTRATE INJ 5 MG/5 ML VIAL IV PUSH ×2 (11:55→12:11)
--- NOTE | 2022-02-10 12:00 | PC.NURSE ---
metoprolol given per rn and slow iv push. pt does not tolerate bp cuff well, will not sit still or leave arm straight. pt continually removes cuff, educated again on the importance of keeping it in place. pt has 25 ml clear emesis and significant dry heaves when awaken. will continue to monitor.
--- NOTE | 2022-02-10 12:25 | PC.NURSE ---
PT RETURNS FROM CT, BP REMAINS ELEVATED. ERP IS AWARE. WILL AWAIT RESULTS AND FURTHER ORDERS. PT IS RESTING WITHOUT DISTRESS. WILL CONTINUE TO MONITOR.
[2022-02-10] MEDS: cloNIDine HCL 0.05 MG TABLET PO (13:12)
--- NOTE | 2022-02-10 13:27 | PC.NURSE ---
PT RESTING AT THIS TIME. PT REPORTS SHE FEELS BETTER WHEN SHE LAYS FLAT. PT IS AWAITING RETURN CALL FROM HOSPITALIST AT THIS TIME. WILL CONTINUE TO MONITOR.
--- NOTE | 2022-02-10 14:07 | PC.NURSE ---
pt continues to await return call from hospitalist at this time. will continue to monitor. erp is aware of elevated bp. no new orders at this time.
--- NOTE | 2022-02-10 14:13 | PC.NURSE ---
pt has been accepted for admission, awaiting room assignment and rn to return call. will continue to monitor.
[2022-02-10] MEDS: PANTOPRAZOLE SODIUM IV 40 MG VIAL IV PUSH (15:27)
--- NOTE | 2022-02-10 15:34 | ADMGEN ---
This patient, Amelia Burkett, was admitted to 2nd Floor Room 204-2 as an observation patient for nv for htn and marijuana induced nausea. Patient/family oriented to hospital policies and general routines including ID bracelet, bed and alarms, visiting hours, pain management, procedures, bathroom and other care routines, personal items, smoking policy, room service/diet, and visiting hours. Information on how to activate the Rapid Response Team has been discussed. Patient/Family are encouraged to report perceived risks to care and to ask questions if they do not understand what they are told or what they should do. patient is sleepy upon arrival. iv dislodged up on arrival. up to br and into bed at this time. skin sweaty. claims she has no needs or corcerns. does not want to answer questions. claims she was just here and if you answers you need to look there. I am now tired and want water to drink. denies nausea at this time. explained the need to take small sips and not to guzzle, to help prevent the nausea to return,. just continue to roll over and give vague answers. denies any needs after dc but did claim she could not keep meds down from previous dc and did sweet pickle maker.
[2022-02-10] MEDS: cloNIDine HCL 0.1 MG TABLET PO (16:18)
[2022-02-10 18:33] LABS: Appearance Urine Cloudy (Clear); Bilirubin Urine Negative (Negative); Blood Urine 1+ (Negative); Glucose Urine UA Trace (Negative); Ketones Urine 1+ (Negative); Leukocyte Esterase Ur Negative (Negative); Nitrate Urine Negative (Negative); Protein Urine Negative (Negative); Urobilinogen Urine 0.2 mg/dL (0.2-1.0)
[2022-02-10 18:39] LABS: Amphetamine Screen Urine Negative (Negative); Barbiturate Screen Urine Negative (Negative); Benzodiazepines Screen Urine Negative (Negative); Cannabinoid Screen Urine Positive (Negative); Cocaine Screen Urine Negative (Negative); Methadone Screen Urine Negative (Negative); Opiate Screen Urine Negative (Negative); Phencyclidine Screen Urine Negative (Negative)
[2022-02-10 18:42] LABS: Add Urine Microscopic? YES; Amorphous Sediment Urine Moderate; Bacteria Urine Trace /hpf; Color Urine Yellow (Yellow); RBC Urine 0-2 /hpf (0-2); Squamous Epithelial Cell Urine Few /hpf (Few); WBC Urine 0-3 /hpf (0-3)
[2022-02-10 18:43] LABS: Pregnancy On Board Control Positive; Urine Pregnancy Test Negative
[2022-02-10] MEDS: SERTRALINE HCL 25 MG TABLET 75 MG PO (20:47)
[2022-02-11 07:30] VITALS: BP 158/100; PULSE 76; RESP 18; TEMP 36.9; O2SAT 96
[2022-02-11] MEDS: POTASSIUM CHLORIDE 20 MEQ TABLET PO (08:44)
[2022-02-11] MEDS: cloNIDine HCL 0.1 MG TABLET PO (08:45)
[2022-02-11] MEDS: amLODIPine BESYLATE 5 MG TABLET PO (08:45)
[2022-02-11] MEDS: PANTOPRAZOLE SODIUM IV 40 MG VIAL IV PUSH (08:46)
[2022-02-11 09:15] VITALS: BP 164/89
[2022-02-11 10:14] VITALS: BP 150/80
--- NOTE | 2022-02-11 10:16 | PM.SD2 ---
Same Day Admit/Disch: HPI History of Present Illness Chief complaint: hypertension/marijuana induced emsis Narrative: Amelia is a 46F with a PMH of cannabis hyperemesis syndrome and colitis that presented to the ED with nausea and vomiting. It started a few days ago. She was admitted here and treated for colitis with flaglyl, cipro and solumedrol. Despite this she continues to have N/V and cannot tolerate PO and she feels cold. There is no CP, SOB or lightheadedness. She originally had some diarrhea with it. She does admit to smoking MJ regularly. [facility] Past Medical History Medical History Depression Radius/ulna fracture Family History Family History Mother No problems noted. Father No problems noted. Social History Social History Smoking status: Never smoker Additional smoking assessment comments: smoke cigarettes frequency amount unknown Alcohol intake: never Alcohol use details: denies alcohol use Substance use: current Substance use type: marijuana Other substance usage details: daily Last use: 02-09-2022 Has the Lack of Transportation Kept You From Medical Appointments or From Getting Medications?: No Within the Past 12 Months, Were You Worried Whether Your Food Would Run Out Before You Got Money to Buy More?: Never True What is Your Housing Situation Today?: I Have Housing Are You Worried That in the Next 2 Months, You May Not Have Your Own Housing to Live In?: No Do You Have Trouble Paying Your Heating Or Electricity Bill?: Yes Do You Have Trouble Paying For Medicines?: No Are You Currently Unemployed and Looking for Work?: No Highest Level of Education Completed: Associate Degree Do You Have Trouble With Childcare or the Care of a Family Member?: No Gender identity (if verbalized by the patient): Female Spiritual care concerns: No Agree to blood products: Yes Comments At time as signature, I have reviewed and agree with nursing past medical, social, surgical and family history. Please see nursing chart for further information. There is no relevant family history pertinent to the presenting complaint. Same Day Admit/Disch: Med Pre-admit Medications Home Medications Medication Instructions Recorded Confirmed Type gabapentin 300 mg capsule 300 mg PO HS 05/07/19 02/10/22 History sertraline 50 mg tablet 75 mg PO HS 05/07/19 02/10/22 History methylprednisolone 4 mg tablets in 4 mg PO DAILY #21 ea 02/07/22 02/10/22 Rx a dose pack (Medrol (Fabio)) potassium chloride 20 mEq 20 meq PO DAILY #10 tabs 02/07/22 02/10/22 Rx tablet,extended release(part/cryst) Saccharomyces boulardii 250 mg 250 mg PO BID 7 days #14 caps 02/08/22 02/10/22 Rx capsule (Florastor) ciprofloxacin HCl 250 mg tablet 250 mg PO Q12H 7 days #14 tabs 02/08/22 02/10/22 Rx (Cipro) metronidazole 500 mg tablet 500 mg PO Q12H 7 days #14 tabs 02/08/22 02/10/22 Rx amlodipine 5 mg tablet (Norvasc) 5 mg PO QAM 30 days #30 tabs 02/11/22 Rx ondansetron 4 mg disintegrating 4 mg PO Q4H PRN nausea and 02/11/22 Rx tablet vomiting #14 tabs Exam Narrative: GENERAL:Well-appearing, well-nourished, and in no acute distress. HEAD:Normocephalic, atraumatic. EYES: PERRLA ENT: Nares clear, no rhinorrhea or epistaxis. Mucous membranes moist. CHEST: Clear to auscultation. No respiratory distress. HEART: Regular rate and rhythm. Normal peripheral pulses. ABDOMEN: Soft, nontender, nondistended, normal active bowel sounds. EXTREMITIES: Normal range of motion. No edema. SKIN: Warm, dry, no rash. NEURO: No focal deficits. Alert and oriented x3. DS: Data Data Completed and Pending Labs on day of discharge: Labs from last 24 hours 02/10/22 02/10/22 02/10/22 18:28 18:28 10:55 WBC RBC Hgb Hct MCV MCH MCHC RDW
[2022-02-11 15:34] VITALS: BP 171/98; PULSE 78; RESP 18; TEMP 36.6; O2SAT 96
--- NOTE | 2022-02-11 16:45 | PC.NURSE ---
All discharge instructions and education reviewed with patient. IV site removed, tip intact, dressing applied to site. All belongings gathered together and sent home with patient. Patient denies any questions at discharge. Patient taken down to front door via wheelchair by this nurse. Patient left via private vehicle with friend.
--- NOTE | 2022-02-15 11:25 | PC.NURSE ---
Unable to contact for discharge call back.
== END 2022-02-11 16:45 | disposition home or self-care (01) ==
LOC: CHSED 14:12 → CHS2ND 14:22
PROVIDERS: Admitting Provider Internal Medicine; Emergency Provider Family Medicine; PCP Physician Assistant; Visit Provider Nurse Practitioner Family
DX: I16.0 Hypertensive urgency (principal); R11.2 Nausea with vomiting, unspecified; F12.10 Cannabis abuse, uncomplicated; F32.A Depression, unspecified; F17.210 Nicotine dependence, cigarettes, uncomplicated; F17.220 Nicotine dependence, chewing tobacco, uncomplicated; Z79.899 Other long term (current) drug therapy
CPT/HCPCS: 36415; 70450; 80053; 80307; 81001; 81025; 83605; 83690; 85025; 86140; 93005; 96361; 96374; 96375; 99285; A9270; C9113; G0378; G0379; J1630; J2405; J7120

== ENCOUNTER 2023-01-05 01:22 | Day surgery (SDC) | payer OTHER, SELFPAY ==
[2022-12-28 13:54] VITALS: BMI 32.7
[2023-01-05 09:13] VITALS: BP 120/75; PULSE 77; RESP 18; TEMP 36.2; O2SAT 96
[2023-01-05] MEDS: LACTATED RINGERS 1,000 ML 150 ML IV CONT (09:24)
--- NOTE | 2023-01-05 09:31 | WPDANESEPPF ---
Anes - Initial Pre Proc Eval Procedure: Operation Date: 01/05/23 10:30 Proposed Procedures p Screening Colonoscopy - James Garibay MD Date/Time: 01/05/23 09:31 Surgeon: James Garibay MD Pre Op Diagnosis: neoplasm screening Patient Data Age: 47 Gender: F Height: 1.63 m Weight: 87.7 kg Last Vital Signs Temp 97.1 F L 01/05/23 09:13 Pulse 77 01/05/23 09:13 Resp 18 01/05/23 09:13 BP 120/75 01/05/23 09:13 Pulse Ox 96 01/05/23 09:13 O2 Del Method Room Air 01/05/23 09:13 Allergies Allergy/AdvReac Type Severity Reaction Status Date / Time hydrocodone AdvReac Mild nausea Verified 01/05/23 09:12 vomiting Penicillins AdvReac Redness of Verified 01/05/23 09:12 Skin Home Medications Medication Instructions Recorded Confirmed Type gabapentin 300 mg capsule 300 mg PO HS 05/07/19 12/29/22 History sertraline 50 mg tablet 75 mg PO HS 05/07/19 12/29/22 History amlodipine 5 mg tablet (Norvasc) 5 mg PO QAM 30 days #30 tabs 02/11/22 12/29/22 Rx omeprazole 20 mg capsule,delayed 20 mg PO DAILY #30 caps 02/11/22 12/29/22 Rx release Lactobacillus 1 cap PO DAILY 12/29/22 12/29/22 History acidophilus-Bifidobac.animalis 2.5 billion cell capsule (Daily Probiotic) cholecalciferol (vitamin D3) 25 25 mcg PO DAILY 12/29/22 12/29/22 History mcg (1,000 unit) tablet (Vitamin D3) mirtazapine 15 mg tablet 15 mg PO HS 12/29/22 12/29/22 History Patient hx anesthesia problems: none Family hx anesthesia problems: none Results Review: All pre-operative results and documents have been reviewed as part of the pre-operative evaluation. [facility] Past Medical History Medical History Depression Radius/ulna fracture Family History Family History Mother No problems noted. Father No problems noted. Social History Social History Smoking status: Never smoker Additional smoking assessment comments: smoke cigarettes frequency amount unknown Alcohol intake: never Alcohol use details: denies alcohol use Substance use: current Substance use type: marijuana Other substance usage details: daily Last use: daily Lack of Transportation: No Lack of Food: Never True Current Housing: I Have Housing Concerned About Future Housing: No Difficulty Paying Gas/Electric Bills: YES Difficulty Paying for Meds: No Currently Unemployed: No Education: Associate Degree Difficulty w/ Childcare or Family Care: No Living arrangements: with family Gender identity (if verbalized by the patient): Female Spiritual care concerns: No Agree to blood products: Yes Anes - Eval Final PreProcedure Day of Procedure 01/05/23 09:31 Patient weight: normal Heart: regular rate and rhythm Lungs: clear to auscultation Airway: Mallampati scale class II Neurological: alert and oriented Last oral intake: >/= 8 hours ASA classification: II Emergent: no Anesthetic plan: proceed Anesthesia type and monitoring: general GIVS and standard monitoring Results Review: All pre-operative results and documents have been reviewed as part of the pre-operative evaluation. Informed Consent: The patient's anesthetic plan and its attendant risks and benefits were discussed with the patient/family/POA. Questions were solicited and answers provided to the satisfaction of the patient/family/POA.
--- NOTE | 2023-01-05 10:24 | PM.HPGS ---
History of Present Illness History of Present Illness Consent: Risks, benefits, and alternatives have been discussed and questions answered. Patient agrees to proceed with procedure. Chief complaint: neoplasm screening Narrative: Amelia Burkett is a 47 year old female here for first screening colonoscopy Review of Systems Constitutional: Constitutional: Denies headache(s) and Denies weakness Eyes: Eyes: Denies blurry vision ENT: Reports Normal hearing present, Denies headache(s) and Denies neck pain Cardiovascular: Cardiovascular: Denies chest pain and Denies dyspnea Respiratory: Respiratory: Denies dyspnea Gastrointestinal: Gastrointestinal: Reports no additional gastrointestinal complaints Genitourinary: Genitourinary: Denies dysuria Musculoskeletal: Musculoskeletal: Denies neck pain Integumentary/Breasts: Skin/Breast: Denies dry skin Neurologic: Reports Normal hearing present, Denies headache(s) and Denies weakness Psychiatric: Psychiatric: Denies anxiety Endocrine: Endocrine: Denies change in body appearance Hematologic/Lymphatic: Hematologic/Lymphatic: Denies easy bleeding Allergic/Immunologic: Allergic/Immunologic: Denies urticaria [facility] Past Medical History Medical History (Updated 01/05/23 @ 10:25 by James Garibay MD) Colon cancer screening Depression Radius/ulna fracture Family History Family History Mother No problems noted. Father No problems noted. Social History Social History Smoking status: Never smoker Additional smoking assessment comments: smoke cigarettes frequency amount unknown Alcohol intake: never Alcohol use details: denies alcohol use Substance use: current Substance use type: marijuana Other substance usage details: daily Last use: daily Lack of Transportation: No Lack of Food: Never True Current Housing: I Have Housing Concerned About Future Housing: No Difficulty Paying Gas/Electric Bills: YES Difficulty Paying for Meds: No Currently Unemployed: No Education: Associate Degree Difficulty w/ Childcare or Family Care: No Living arrangements: with family Gender identity (if verbalized by the patient): Female Spiritual care concerns: No Agree to blood products: Yes Meds Home Medications and Allergies Home Medications Medication Instructions Recorded Confirmed Type gabapentin 300 mg capsule 300 mg PO HS 05/07/19 12/29/22 History sertraline 50 mg tablet 75 mg PO HS 05/07/19 12/29/22 History amlodipine 5 mg tablet (Norvasc) 5 mg PO QAM 30 days #30 tabs 02/11/22 12/29/22 Rx omeprazole 20 mg capsule,delayed 20 mg PO DAILY #30 caps 02/11/22 12/29/22 Rx release Lactobacillus 1 cap PO DAILY 12/29/22 12/29/22 History acidophilus-Bifidobac.animalis 2.5 billion cell capsule (Daily Probiotic) cholecalciferol (vitamin D3) 25 25 mcg PO DAILY 12/29/22 12/29/22 History mcg (1,000 unit) tablet (Vitamin D3) mirtazapine 15 mg tablet 15 mg PO HS 12/29/22 12/29/22 History Allergies Allergy/AdvReac Type Severity Reaction Status Date / Time hydrocodone AdvReac Mild nausea Verified 01/05/23 09:12 vomiting Penicillins AdvReac Redness of Verified 01/05/23 09:12 Skin Vital Signs Vital Signs - 24 hr 01/05/23 09:13 Temperature 97.1 F L Pulse Rate 77 Respiratory Rate 18 Blood Pressure 120/75 Pulse Oximetry 96 Oxygen Delivery Room Air Exam Const: General: comfortable and no acute distress HENMT: Face/Nose/Sinus: Normal nares present Eyes: General: appearance normal, both eyes and all related structures Neck: Neck: no JVD Resp: Auscultation: clear to auscultation bilaterally Cardio: Rate: regular rate Rhythm: regular rhythm GI: Inspection: non-distended GI Palp: Yes Soft to palpation Skin: General skin exam: normal color Neuro: Gene
[2023-01-05 10:42] VITALS: BP 116/71; PULSE 60; RESP 15; O2SAT 96
[2023-01-05 10:52] VITALS: BP 117/80; PULSE 62; RESP 21; O2SAT 100
[2023-01-05 11:02] VITALS: BP 116/86; PULSE 60; RESP 15; O2SAT 100
== END 2023-01-05 11:18 | disposition home or self-care (01) ==
PROVIDERS: PCP Physician Assistant; Visit Provider Internal Medicine Gastroenterology
PROC: 0DJD8ZZ Inspection of Lower Intestinal Tract, Via Natural or Artificial Opening Endoscopic (ICD-10-PCS; CPT 45378; principal; 2023-01-05 10:30)
DX: Z12.11 Encounter for screening for malignant neoplasm of colon (principal); K64.8 Other hemorrhoids; K64.4 Residual hemorrhoidal skin tags; F32.A Depression, unspecified; F12.90 Cannabis use, unspecified, uncomplicated; Z72.0 Tobacco use
CPT/HCPCS: 45378; J2001; J2704; J7120

== ENCOUNTER 2023-10-28 19:20 | Emergency (ER) | payer SELFPAY ==
--- NOTE | ~2023-10-28 | CT_ITS ---
EXAMINATION: CT abdomen pelvis w con DATE: 10/28/2023 20:42 INDICATION: Nausea and vomiting. Diarrhea. TECHNIQUE: Computed tomography (CT) of the abdomen and pelvis was performed with 100 mL Omnipaque 350 intravenous contrast. Automated exposure control and iterative reconstruction technique were employe d. The dose-length product was 1075.04 mGy-cm. COMPARISON: CT abdomen and pelvis 02/07/2022 FINDINGS: The visualized portions of the lung bases demonstrate mild atelectasis. No pleural effusion . The heart size is normal. No pericardial effusion. There is an 18 mm cyst in the liver. The gallbla dder, spleen, pancreas, adrenal glands, and kidneys are normal. There is an intrauterine device in ex pected position. There are no dilated loops of bowel. The appendix is normal. There are no pathologic ally enlarged lymph nodes. There is no free intraperitoneal fluid. There is severe lumbar spondylosis . Lumbar levocurvature is noted. IMPRESSION: 1. No etiology for the patient's symptoms. Reviewed, dictated and finalized at location E.
[2023-10-28 19:30] VITALS: BP 203/111; PULSE 107; RESP 18; TEMP 36.9; O2SAT 97
--- NOTE | 2023-10-28 19:32 | ED.GENADULT ---
HPI - General Adult General Chief complaint: Nausea/Vomiting/Diarrhea Stated complaint: throwing up & loose stools Time Seen by Provider: 10/28/23 19:31 History of Present Illness HPI narrative: Patient is a 48 year old female with history of cyclic vomiting syndrome, HTN here with nausea, vomiting, diarrhea and headache. She notes she began throwing up around 5:30 AM today. She has thrown up multiple times. A few hours ago she had mild diarrhea and began having a headache. She continues to smoke marijuana, last smoked earlier today and it temporarily helped her nausea. She notes that this feels very similar to prior episodes of her cyclic vomiting syndrome. She did take her antihypertensive last night, does not believe she threw it up. She is unsure of when she was last seen for similar, usually comes to this hospital. She did have a colonoscopy about a year ago and it was largely unremarkable. She notes associated fever and chills. No cough, congestion. No sick contacts. No urinary symptoms. Related Data Home Medications Medication Instructions Recorded Confirmed gabapentin 300 mg capsule 300 mg PO HS 05/07/19 10/28/23 sertraline 50 mg tablet 75 mg PO HS 05/07/19 10/28/23 Lactobacillus 1 cap PO DAILY 12/29/22 10/28/23 acidophilus-Bifidobac.animalis 2.5 billion cell capsule (Daily Probiotic) cholecalciferol (vitamin D3) 25 25 mcg PO DAILY 12/29/22 10/28/23 mcg (1,000 unit) tablet (Vitamin D3) mirtazapine 15 mg tablet 15 mg PO HS 12/29/22 10/28/23 Allergies Allergy/AdvReac Type Severity Reaction Status Date / Time hydrocodone AdvReac Mild nausea Verified 01/05/23 09:12 vomiting Penicillins AdvReac Redness of Verified 01/05/23 09:12 Skin Review of Systems Review of Systems: All systems reviewed & are unremarkable except as noted in HPI and below PMFSH Past Medical History Medical History (Updated 10/28/23 @ 21:22 by Ana Rowe MD) Colon cancer screening Depression Radius/ulna fracture Family History Family History Mother No problems noted. Father No problems noted. Social History Social History Smoking status: Never smoker Additional smoking assessment comments: smoke cigarettes frequency amount unknown Alcohol intake: never Alcohol use details: denies alcohol use Substance use: current Substance use type: marijuana Other substance usage details: daily Last use: daily Lack of Transportation: No Lack of Food: Never True Current Housing: I Have Housing Concerned About Future Housing: No Difficulty Paying Gas/Electric Bills: YES Difficulty Paying for Meds: No Currently Unemployed: No Education: Associate Degree Difficulty w/ Childcare or Family Care: No Living arrangements: with family Gender identity (if verbalized by the patient): Female Spiritual care concerns: No Agree to blood products: Yes Exam Narrative: GENERAL: Well-appearing, well-nourished, and in no acute distress. HEAD: Normocephalic, atraumatic. EYES: PERRLA and EOMI. ENT: Nares clear. Mucous membranes moist. NECK: Supple. CHEST: Clear to auscultation. No respiratory distress. HEART: Regular rate and rhythm. Normal peripheral pulses. ABDOMEN: Soft, nontender, nondistended. EXTREMITIES: Normal range of motion. No edema. SKIN: Warm, dry, no rash. NEURO: No focal deficits. Alert and oriented x3. PSYCH: Normal mood and affect. Course Course Emergency Course: Chart review performed. Patient here with nausea, vomiting, diarrhea and headache. Triage vitals show HTN, tachycardia, otherwise normal. Last visit in our system shows history of cannabinoid hyperemesis syndrome and colitis. Patient seen and evaluated, non toxic appearing. Suspect similar presentation to prior with cannabinoid hyperemesis vs cyclic vomiting syndrome. She has been treate
[2023-10-28 19:43] LABS: Basophils Absolute Auto 0.05 K/mm3 (0.00-0.10); Basophils Percent Auto 0.3 % (0.0-1.0); Eosinophils Absolute Auto 0.01 K/mm3 (0.02-0.50); Eosinophils Percent Auto 0.1 % (1.0-6.0); Hematocrit 40.2 % (35.0-49.0); Hemoglobin 13.8 g/dL (12.0-15.0); Immature Granulocyte Absolute 0.12 K/mm3 (0.00-0.00); Immature Granulocyte Percent A 0.6 % (0.0-0.0); Lymphocytes Absolute Auto 1.22 K/mm3 (1.10-4.50); Lymphocytes Percent Auto 6.4 % (18.0-42.0); Mean Corpuscular HGB Conc 34.3 g/dL (32-36); Mean Corpuscular Hemoglobin 29.1 pg (27.0-31.0); Mean Corpuscular Volume 84.6 fL (78.0-102.0); Mean Platelet Volume 9.9 fl (9.2-11.8); Monocytes Absolute Auto 0.59 K/mm3 (0.10-0.90); Monocytes Percent Auto 3.1 % (2.0-11.0); Neutrophils Absolute Auto 16.96 K/mm3 (1.70-7.20); Neutrophils Percent Auto 89.5 % (50.0-70.0); Platelet Count Result 384 K/mm3 (150-420); Red Blood Count 4.75 M/mm3 (4.20-5.40); Red Cell Distribution Width 12.2 % (11.6-14.4)
[2023-10-28] MEDS: SODIUM CHLORIDE 0.9% IV 1,000 ML 999 ML IV CONT (19:48)
[2023-10-28] MEDS: ACETAMINOPHEN 500 MG TABLET 1000 MG PO (19:49)
[2023-10-28] MEDS: PANTOPRAZOLE SODIUM IV 40 MG VIAL IV PUSH (19:49)
[2023-10-28] MEDS: ONDANSETRON INJ 4 MG/2 ML VIAL IV PUSH (19:49)
[2023-10-28 19:56] LABS: Alanine Aminotransferase 26 U/L (14-59); Albumin Level 4.5 g/dL (3.4-5.0); Alkaline Phosphatase 98 U/L (46-116); Aspartate Amino Transferase 21 U/L (15-37); Bilirubin,Total 0.5 mg/dL (0.00-1.00); Blood Urea Nitrogen 14 mg/dL (7-18); Calcium 9.3 mg/dL (8.5-10.1); Carbon Dioxide 24 mmol/L (21-32); Estimated CRCL calculation 68 ml/min; Estimated Glomerular Filt Rate 59; Glucose 145 mg/dL (70-99); Lipase 22 U/L (16-77); Magnesium 1.7 mg/dL (1.8-2.4); Total Protein 8.8 g/dL (6.4-8.2)
--- NOTE | 2023-10-28 19:56 | PC.NURSE ---
mother at her side. warm blanket was given. call light in reach. patient is aware that she is to give urine sample. instructed to call out when she needs to void
[2023-10-28 19:57] LABS: Lactic Acid Reflex 2.2 mmol/L (0.4-2.0)
[2023-10-28 19:59] LABS: Anion Gap 13 mmol/L (4-12); Chloride 98 mmol/L (98-108); Osmolality Calculated 283 mOsm/kg (285-295); Potassium 3.8 mmol/L (3.5-5.1); Sodium 135 mmol/L (136-145)
[2023-10-28 20:15] VITALS: BP 110/73; PULSE 87; RESP 20; TEMP 36.9; O2SAT 97
[2023-10-28 20:24] LABS: SARS-CoV-2 RNA PCR Negative (Negative)
[2023-10-28 20:26] LABS: Influenza A QL RT-PCR Negative (Negative); Influenza B QL RT-PCR Negative (Negative); RSV RNA, RT-PCR Negative (Negative)
--- NOTE | 2023-10-28 20:27 | PC.NURSE ---
patient transported to ct via stretcher
--- NOTE | 2023-10-28 20:53 | PC.NURSE ---
resting quietly on stretcher. waiting on lab and radiology results. denies any needs.
[2023-10-28] MEDS: MAGNESIUM SULF 2 GM/WATER 50ML 2 GM/50 ML BAG IVPB (21:14)
--- NOTE | 2023-10-28 21:30 | PC.NURSE ---
resting quietly on stretcher. lights turned off, warm blanket. ER provider gave patient water to sip on. Currently no vomiting while drinking water.
[2023-10-28 22:38] LABS: Reflex Lactic Acid Yes or No Add Lactic
[2023-10-28 22:42] VITALS: BP 133/75; PULSE 88; RESP 18; O2SAT 100
== END 2023-10-28 22:42 | disposition home or self-care (01) ==
PROVIDERS: Emergency Provider Student in an Organized Health Care Education/Training Program; PCP Nurse Practitioner Family
DX: R11.15 Cyclical vomiting syndrome unrelated to migraine (principal); R51.9 Headache, unspecified; E83.42 Hypomagnesemia; I10 Essential (primary) hypertension; Z79.899 Other long term (current) drug therapy; Z20.822 Contact with and (suspected) exposure to COVID-19
CPT/HCPCS: 36415; 74177; 80053; 83605; 83690; 83735; 85025; 87637; 96361; 96365; 96375; 99284; J2405; J2470; J3475; J7030; Q9967

== ENCOUNTER 2024-01-26 13:40 | Emergency (ER) | payer SELFPAY ==
[2024-01-26] VITALS (8 sets, daily range): BP systolic 150–186; BP diastolic 80–106; PULSE 64–77; RESP 14–18; TEMP 36.5–36.8; O2SAT 98–100
[2024-01-26] MEDS: METOCLOPRAMIDE HCL INJ 10 MG/2 ML VIAL IV PUSH (14:11)
[2024-01-26] MEDS: SODIUM CHLORIDE 0.9% IV 1,000 ML 999 ML IV CONT (14:12)
--- NOTE | 2024-01-26 14:22 | PC.NURSE ---
PT HAS HAD A LARGE CLEAR LIQUID EMESIS ON THE FLOOR IN THE EXAM ROOM. PT HAS IVF INFUSING WITHOUT DIFFICULTY, MEDICATION WERE ADMINISTERED POST EMESIS WITHOUT DIFFICULTY. COOL WASH CLOTH PROVIDED. WILL CONTINUE TO MONITOR.
--- NOTE | 2024-01-26 14:37 | ED.NAVMDI ---
HPI - Nausea/Vomiting/Diarrhea General Chief complaint: Nausea/Vomiting/Diarrhea Stated complaint: VOMITING Time Seen by Provider: 01/26/24 13:45 Source: patient Mode of arrival: ambulatory Limitations: no limitations History of Present Illness HPI Narrative: This is a 48-year-old female presents with nausea vomiting since early this morning patient does have a history of marijuana use and has had a history of cyclical vomiting syndrome from cannabis. Otherwise no abdominal pain no shortness of breath no diarrhea constipation no fever chills. MD elicited complaint: nausea and vomiting Onset (ago): hour(s) Description of vomiting: watery Associated nausea: Yes Associated abdominal pain: No Related Data Home Medications Medication Instructions Recorded Confirmed gabapentin 300 mg capsule 300 mg PO HS 05/07/19 10/28/23 sertraline 50 mg tablet 75 mg PO HS 05/07/19 10/28/23 Lactobacillus 1 cap PO DAILY 12/29/22 10/28/23 acidophilus-Bifidobac.animalis 2.5 billion cell capsule (Daily Probiotic) cholecalciferol (vitamin D3) 25 25 mcg PO DAILY 12/29/22 10/28/23 mcg (1,000 unit) tablet (Vitamin D3) mirtazapine 15 mg tablet 15 mg PO HS 12/29/22 10/28/23 Allergies Allergy/AdvReac Type Severity Reaction Status Date / Time hydrocodone AdvReac Mild nausea Verified 01/26/24 13:45 vomiting Penicillins AdvReac Redness of Verified 01/26/24 13:45 Skin Review of Systems Review of Systems: All systems reviewed & are unremarkable except as noted in HPI and below PMFSH Past Medical History Medical History Colon cancer screening Depression Radius/ulna fracture Family History Family History Mother No problems noted. Father No problems noted. Social History Social History Smoking status: Never smoker Additional smoking assessment comments: smoke cigarettes frequency amount unknown Alcohol intake: never Alcohol use details: denies alcohol use Substance use: current Substance use type: marijuana Other substance usage details: daily Last use: daily Lack of Transportation: No Lack of Food: Never True Current Housing: I Have Housing Concerned About Future Housing: No Difficulty Paying Gas/Electric Bills: YES Difficulty Paying for Meds: No Currently Unemployed: No Education: Associate Degree Difficulty w/ Childcare or Family Care: No Living arrangements: with family Gender identity (if verbalized by the patient): Female Spiritual care concerns: No Agree to blood products: Yes Exam Const: General: healthy appearing, no acute distress and alert Nutritional Appearance: well nourished Orientation/consciousness: patient oriented x3 Limitations: no limitations Neck: Neck: normal visual inspection, no lymphadenopathy and no meningeal signs Chest: Chest palpation & inspection: normal inspection of the chest Cardio: Rate: regular rate Rhythm: regular rhythm GI: GI Palp: Yes Soft to palpation Auscultation: normal bowel sounds : General: Yes bladder normal to palpation Skin: General skin exam: normal color Rashes: no rashes Wounds: no wounds Neuro: General: patient oriented x3, moves all extremities and no meningeal signs Extrem: General: normal to inspection Course Course Emergency Course: Patient started on IV and given IV fluids along with 10mg IV Reglan symptoms have improved labs reviewed with patient. Vital Signs Vital signs: Vital Signs Temperature 36.5 C 01/26/24 13:43 Pulse Rate 71 01/26/24 13:43 Respiratory Rate 14 01/26/24 13:43 Blood Pressure 186/106 H 01/26/24 13:43 Pulse Oximetry 99 01/26/24 13:43 Oxygen Delivery Room Air 01/26/24 13:43 Temperature 36.5 C 01/26/24 13:43 Pulse Rate 71 01/26/24 13:43 Respiratory Rate 1
[2024-01-26 14:53] LABS: Basophils Absolute Auto 0.03 K/mm3 (0.00-0.10); Basophils Percent Auto 0.2 % (0.0-1.0); Hematocrit 36.7 % (35.0-49.0); Hemoglobin 12.6 g/dL (12.0-15.0); Immature Granulocyte Absolute 0.08 K/mm3 (0.00-0.00); Immature Granulocyte Percent A 0.4 % (0.0-0.0); Lymphocytes Absolute Auto 0.68 K/mm3 (1.10-4.50); Lymphocytes Percent Auto 3.8 % (18.0-42.0); Mean Corpuscular HGB Conc 34.3 g/dL (32-36); Mean Corpuscular Hemoglobin 28.8 pg (27.0-31.0); Mean Platelet Volume 9.9 fl (9.2-11.8); Monocytes Absolute Auto 0.32 K/mm3 (0.10-0.90); Monocytes Percent Auto 1.8 % (2.0-11.0); Neutrophils Absolute Auto 16.74 K/mm3 (1.70-7.20); Neutrophils Percent Auto 93.8 % (50.0-70.0); Platelet Count Result 362 K/mm3 (150-420); Red Blood Count 4.37 M/mm3 (4.20-5.40); Red Cell Distribution Width 12.7 % (11.6-14.4); White Blood Count 17.9 K/mm3 (4.8-10.8)
--- NOTE | 2024-01-26 14:54 | PC.NURSE ---
PT IS LYING ON STRETCHER WITH LIGHTS OFF AND WARM BLANKET. IVF INFUSING ORDERED WITHOUT DIFFICULTY. PT IS TO BE DC HOME. AWAITING FLUID INFUSION. WILL CONTINUE TO MONITOR.
--- NOTE | 2024-01-26 15:04 | PC.NURSE ---
pt reports she is ready to go home, ambulatory to without difficulty. pt is awaiting ua results. will continue to monitor.
[2024-01-26 15:08] LABS: Alanine Aminotransferase 20 U/L (14-59); Alkaline Phosphatase 91 U/L (46-116); Anion Gap 14 mmol/L (4-12); Aspartate Amino Transferase 17 U/L (15-37); Bilirubin,Total 0.5 mg/dL (0.00-1.00); Blood Urea Nitrogen 15 mg/dL (7-18); Calcium 8.4 mg/dL (8.5-10.1); Carbon Dioxide 22 mmol/L (21-32); Chloride 105 mmol/L (98-108); Estimated CRCL calculation 64 ml/min; Estimated Glomerular Filt Rate 56; Glucose 142 mg/dL (70-99); Osmolality Calculated 294 mOsm/kg (285-295); Potassium 3.5 mmol/L (3.5-5.1); Sodium 141 mmol/L (136-145); Total Protein 7.7 g/dL (6.4-8.2)
[2024-01-26 15:24] LABS: Add Urine Microscopic? YES; Appearance Urine Clear (Clear); Bilirubin Urine Negative (Negative); Blood Urine 1+ (Negative); Color Urine Light Yellow (Yellow); Glucose Urine UA Negative (Negative); Ketones Urine 1+ (Negative); Leukocyte Esterase Ur Negative LEU/UL (Negative); Nitrate Urine Negative (Negative); Protein Urine 2+ (Negative); Urobilinogen Urine 0.2 mg/dL (0.2-1.0); pH Urine 8.5 (5.0-8.0)
[2024-01-26 15:29] LABS: Bacteria Urine Trace /hpf; RBC Urine 0-2 /hpf (0-2); Squamous Epithelial Cell Urine Few /hpf (Few); WBC Urine None seen /hpf (0-3)
== END 2024-01-26 15:45 | disposition home or self-care (01) ==
PROVIDERS: Emergency Provider Emergency Medicine
DX: F12.188 Cannabis abuse with other cannabis-induced disorder (principal); J66.2 Cannabinosis
CPT/HCPCS: 36415; 80053; 81001; 85025; 96361; 96374; 99284; J2765; J7030

== ENCOUNTER 2024-01-27 15:26 | Observation (INO) | payer SELFPAY ==
--- NOTE | ~2024-01-27 | CT_ITS ---
EXAMINATION: CT abdomen pelvis wo con DATE: 01/29/2024 14:00 INDICATION: Abdominal pain/nausea/vomiting x4 days TECHNIQUE: Computed tomography (CT) of the abdomen and pelvis was performed without intravenous contr ast. Automated exposure control and iterative reconstruction technique were employed. The dose-length product was 826.49 mGy-cm. COMPARISON: 10/28/2023. FINDINGS: Lower thorax: Unremarkable Liver: Simple right lobe cyst. Biliary/Gallbladder: Mildly distended gallbladder. No stones or inflammatory change. No bile duct dil ation. Pancreas: No mass or duct dilation. Spleen: Normal. Adrenals:No mass. Kidneys: No suspicious mass, obstructing stone, or hydronephrosis. GI tract: No small or large bowel dilation. Normal appendix. Mesentery/Peritoneum: No ascites, mass, or free air. Mild mesenteric stranding. Prominent mesenteric lymph nodes with the suggestion of early fat halos. Retroperitoneum: No mass. Pelvis: Distended urinary bladder. Mild wall thickening. Normal uterus with an IUD, in good position. Normal bilateral ovaries. Soft Tissues: Soft tissues and body wall unremarkable. Bones: No acute osseous finding. IMPRESSION: Mild gallbladder hydrops, without stones or inflammatory change, likely related to fasting unless acc ompanied by biliary labs abnormalities. Mild mesenteric stranding and prominent lymph nodes may represent early/mild mesenteric panniculitis. Bladder wall thickening as can be seen with cystitis, correlate with urinalysis. Reviewed, dictated and finalized at location K. IMPRESSION: Mild gallbladder hydrops, without stones or inflammatory change, likely related to fasting unless accompanied by biliary labs abnormalities. Mild mesenteric stranding and prominent lymph nodes may represent early/mild me senteric panniculitis. Bladder wall thickening as can be seen with cystitis, correlate with urinalysis .
[2024-01-27 15:27] VITALS: BP 197/93; PULSE 72; RESP 18; TEMP 37.6; O2SAT 97
--- NOTE | 2024-01-27 15:34 | ED.GENADULT ---
HPI - General Adult General Chief complaint: Nausea/Vomiting/Diarrhea Stated complaint: throwing up Time Seen by Provider: 01/27/24 15:34 Source: patient Mode of arrival: ambulatory Limitations: no limitations History of Present Illness HPI narrative: 48-year-old white female with history of cyclic vomiting and daily use of marijuana was seen yesterday in the emergency room for the same thing. She continues to vomit and smoke marijuana. Denies any pain problems voiding or stooling she has been vomiting since she got home from the hospital yesterday he can stop. Originally or vomiting started yesterday at 5:00 a.m.. Still smoking marijuana. Denies any cough fever sore throat runny nose rash or itching bleeding or bruising dizziness or lightheadedness or any other complaint Related Data Home Medications Medication Instructions Recorded Confirmed sertraline 50 mg tablet 75 mg PO HS 05/07/19 01/27/24 Lactobacillus 1 cap PO DAILY 12/29/22 01/27/24 acidophilus-Bifidobac.animalis 2.5 billion cell capsule (Daily Probiotic) cholecalciferol (vitamin D3) 25 25 mcg PO DAILY 12/29/22 01/27/24 mcg (1,000 unit) tablet (Vitamin D3) mirtazapine 15 mg tablet 15 mg PO HS 12/29/22 01/27/24 Allergies Allergy/AdvReac Type Severity Reaction Status Date / Time hydrocodone AdvReac Mild nausea Verified 01/27/24 15:32 vomiting Penicillins AdvReac Redness of Verified 01/27/24 15:32 Skin Review of Systems Review of Systems: All systems reviewed & are unremarkable except as noted in HPI and below PMFSH Past Medical History Medical History Colon cancer screening Depression Radius/ulna fracture Family History Family History Mother No problems noted. Father No problems noted. Social History Social History Smoking status: Never smoker Additional smoking assessment comments: smoke cigarettes frequency amount unknown Alcohol intake: never Alcohol use details: denies alcohol use Substance use: current Substance use type: marijuana Other substance usage details: daily Last use: daily Lack of Transportation: No Lack of Food: Never True Current Housing: I Have Housing Concerned About Future Housing: No Difficulty Paying Gas/Electric Bills: YES Difficulty Paying for Meds: No Currently Unemployed: No Education: Associate Degree Difficulty w/ Childcare or Family Care: No Living arrangements: with family Gender identity (if verbalized by the patient): Female Spiritual care concerns: No Agree to blood products: Yes Exam Narrative: White female patient with moderate distress retching.? Head normocephalic, atraumatic.? Eyes conjunctiva pink sclera nonicteric.? Extraocular movements are intact.? Ears externally normal.? Oropharynx is clear with moist mucous membranes without exudates.? Neck is supple nontender no lymphadenopathy.? Back is nontender.? Lungs are clear.? Heart is regular rate and rhythm without murmurs gallops or rubs.? Chest wall nontender. Abdomen is soft and nontender no hepatosplenomegaly or masses no CVA tenderness no abdominal bruits.? Extremities no cyanosis clubbing or edema.? Skin is warm and dry without rashes or lesions.? Neurological patient is alert and oriented x4.? Motor and sensory grossly intact.? Gait is normal. Course Vital Signs Vital signs: Vital Signs Temperature 37.6 C 01/27/24 15:27 Pulse Rate 72 01/27/24 15:27 Respiratory Rate 18 01/27/24 15:27 Blood Pressure 197/93 H 01/27/24 15:27 Pulse Oximetry 97 01/27/24 15:27 Oxygen Delivery Room Air 01/27/24 15:27 Temperature 37.6 C 01/27/24 15:27 Pulse Rate 72 01/27/24 15:27 Respiratory Rate 18 01/27/24 15:27 Blood Pressure 197/93 H 01/27/24 15:27 Pulse Oximetry 97 01/27/24
[2024-01-27 15:57] LABS: Hematocrit 40.9 % (35.0-49.0); Hemoglobin 14.2 g/dL (12.0-15.0); Mean Corpuscular HGB Conc 34.7 g/dL (32-36); Mean Corpuscular Hemoglobin 29.1 pg (27.0-31.0); Mean Corpuscular Volume 83.8 fL (78.0-102.0); Mean Platelet Volume 9.9 fl (9.2-11.8); Platelet Count Result 383 K/mm3 (150-420); Red Blood Count 4.88 M/mm3 (4.20-5.40); Red Cell Distribution Width 12.9 % (11.6-14.4); White Blood Count 14.2 K/mm3 (4.8-10.8)
[2024-01-27] MEDS: SODIUM CHLORIDE 0.9% IV 1,000 ML 999 ML IV CONT (16:01)
[2024-01-27] MEDS: METOCLOPRAMIDE HCL INJ 10 MG/2 ML VIAL IV PUSH ×2 (16:01→21:18)
[2024-01-27 16:07] LABS: Add Urine Microscopic? YES; Appearance Urine Clear (Clear); Bilirubin Urine Negative (Negative); Blood Urine 2+ (Negative); Color Urine Yellow (Yellow); Glucose Urine UA Negative (Negative); Ketones Urine 2+ (Negative); Leukocyte Esterase Ur Negative LEU/UL (Negative); Nitrate Urine Negative (Negative); Protein Urine 3+ (Negative); Specific Grav Ur 1.025 (1.010-1.020); Urobilinogen Urine 0.2 mg/dL (0.2-1.0); pH Urine 6.5 (5.0-8.0)
[2024-01-27 16:13] LABS: Alanine Aminotransferase 19 U/L (14-59); Albumin Level 4.3 g/dL (3.4-5.0); Alkaline Phosphatase 93 U/L (46-116); Anion Gap 12 mmol/L (4-12); Aspartate Amino Transferase 32 U/L (15-37); Blood Urea Nitrogen 15 mg/dL (7-18); Calcium 9.3 mg/dL (8.5-10.1); Carbon Dioxide 26 mmol/L (21-32); Chloride 100 mmol/L (98-108); Estimated CRCL calculation 70 ml/min; Estimated Glomerular Filt Rate > 60; Glucose 128 mg/dL (70-99); Magnesium 2.3 mg/dL (1.8-2.4); Osmolality Calculated 288 mOsm/kg (285-295); Sodium 138 mmol/L (136-145); Total Protein 8.3 g/dL (6.4-8.2)
[2024-01-27 16:16] LABS: Amphetamine Screen Urine Negative (Negative); Benzodiazepines Screen Urine Negative (Negative); Cannabinoid Screen Urine Positive (Negative); Cocaine Screen Urine Negative (Negative); Methadone Screen Urine Negative (Negative); Opiate Screen Urine Negative (Negative); Phencyclidine Screen Urine Negative (Negative)
[2024-01-27 16:22] LABS: Bacteria Urine 3+ /hpf; Squamous Epithelial Cell Urine Moderate /hpf (Few); WBC Urine 0-3 /hpf (0-3)
[2024-01-27 17:10] VITALS: BP 131/77; PULSE 77; RESP 18; TEMP 37.5; O2SAT 99; BMI 34.2
--- NOTE | 2024-01-27 17:10 | ADMGEN ---
This patient, Amelia Burkett, was admitted to 2nd Floor Room 208-1. Patient/family oriented to hospital policies and general routines including ID bracelet, bed and alarms, visiting hours, pain management, procedures, bathroom and other care routines, personal items, smoking policy, room service/diet, and visiting hours. Information on how to activate the Rapid Response Team has been discussed. No smoking policy reviewed with patient, patient states understanding. Patient/Family are encouraged to report perceived risks to care and to ask questions if they do not understand what they are told or what they should do.
[2024-01-27] MEDS: KCL 20 MEQ/SW 100 ML 100 ML 50 MEQ IVPB (17:32)
[2024-01-27] MEDS: LACTATED RINGERS 1,000 ML 100 ML IV CONT (17:32)
[2024-01-27] MEDS: PANTOPRAZOLE SODIUM IV 40 MG VIAL IV PUSH (17:33)
[2024-01-27] MEDS: POTASSIUM BICARBONATE 25 MEQ TABEF 50 MEQ PO (17:39)
[2024-01-27 20:00] VITALS: BP 131/88; PULSE 71; RESP 18; TEMP 36.9; O2SAT 95
[2024-01-27] MEDS: MIRTAZAPINE 15 MG TABLET PO (20:37)
[2024-01-27] MEDS: SERTRALINE HCL 25 MG TABLET 75 MG PO (20:37)
--- NOTE | 2024-01-27 21:12 | PC.NURSE ---
Called to room, had stool in her underwear, cleansed, states the smell makes her nauseated, dry heblane noted
--- NOTE | 2024-01-27 21:23 | PC.NURSE ---
Reglan given for continued dry heaves/emesis of clear water, cool cloth to forhead
[2024-01-28] VITALS (10 sets, daily range): BP systolic 116–189; BP diastolic 68–115; PULSE 68–89; RESP 16–18; TEMP 37–38.3; O2SAT 96–99
[2024-01-28] MEDS: ONDANSETRON INJ 4 MG/2 ML VIAL IV PUSH ×3 (03:42→20:28)
[2024-01-28] MEDS: LACTATED RINGERS 1,000 ML 100 ML IV CONT ×3 (03:42→23:58)
[2024-01-28] MEDS: hydrALAZINE HCL 20 MG/ML VIAL IV PUSH ×2 (04:07→13:44)
[2024-01-28 05:27] LABS: Basophils Absolute Auto 0.05 K/mm3 (0.00-0.10); Basophils Percent Auto 0.3 % (0.0-1.0); Hematocrit 38.7 % (35.0-49.0); Hemoglobin 13.4 g/dL (12.0-15.0); Immature Granulocyte Absolute 0.09 K/mm3 (0.00-0.00); Immature Granulocyte Percent A 0.6 % (0.0-0.0); Lymphocytes Absolute Auto 1.78 K/mm3 (1.10-4.50); Lymphocytes Percent Auto 12.1 % (18.0-42.0); Mean Corpuscular HGB Conc 34.6 g/dL (32-36); Mean Corpuscular Hemoglobin 29.2 pg (27.0-31.0); Mean Corpuscular Volume 84.3 fL (78.0-102.0); Mean Platelet Volume 10.1 fl (9.2-11.8); Monocytes Absolute Auto 0.93 K/mm3 (0.10-0.90); Monocytes Percent Auto 6.3 % (2.0-11.0); Neutrophils Absolute Auto 11.83 K/mm3 (1.70-7.20); Neutrophils Percent Auto 80.7 % (50.0-70.0); Platelet Count Result 379 K/mm3 (150-420); Red Blood Count 4.59 M/mm3 (4.20-5.40); Red Cell Distribution Width 13.1 % (11.6-14.4); White Blood Count 14.7 K/mm3 (4.8-10.8)
[2024-01-28 05:45] LABS: Alanine Aminotransferase 23 U/L (14-59); Albumin Level 3.7 g/dL (3.4-5.0); Alkaline Phosphatase 88 U/L (46-116); Anion Gap 13 mmol/L (4-12); Aspartate Amino Transferase 26 U/L (15-37); Bilirubin,Total 0.9 mg/dL (0.00-1.00); Blood Urea Nitrogen 12 mg/dL (7-18); Calcium 8.3 mg/dL (8.5-10.1); Carbon Dioxide 24 mmol/L (21-32); Chloride 101 mmol/L (98-108); Estimated CRCL calculation 76 ml/min; Estimated Glomerular Filt Rate > 60; Glucose 144 mg/dL (70-99); Osmolality Calculated 288 mOsm/kg (285-295); Sodium 138 mmol/L (136-145); Total Protein 7.5 g/dL (6.4-8.2)
--- NOTE | 2024-01-28 06:45 | PC.NURSE ---
Took over care of this patient at 2300. Patient did not need the reglan scheduled for 2100, so it was not given. Patient needed something for nausea/vomiting at 0342, but reglan no longer available in [facility]. Therefore, zofran given. Patient was able to fall back to sleep, and was no longer nauseous.
[2024-01-28] MEDS: HALOPERIDOL LACTATE 5 MG/ML VIAL IV PUSH (09:12)
[2024-01-28] MEDS: KCL 20 MEQ/SW 100 ML 100 ML 50 MEQ IVPB ×2 (09:12→14:41)
[2024-01-28] MEDS: PANTOPRAZOLE SODIUM IV 40 MG VIAL IV PUSH ×2 (09:13→16:48)
--- NOTE | 2024-01-28 09:55 | PM.IMHP ---
H&P: HPI History of Present Illness Date/Time: 01/28/24 09:55 Chief Complaint: nausea and vomiting Narrative: Patient is a 48-year-old female who presented to the emergency department with uncontrolled nausea and vomiting. patient had come to the ER the previous day with same complaint and was given Zofran and fluids in the emergency department with improvement and discharged home however patient states the nausea and vomiting returned and she has been unable to tolerate any oral intake. patient does have a past medical history hypertension and cyclic vomiting syndrome secondary to cannabinoid hyperemesis. patient denied any chest pain, shortness of breath, fever, chills, dizziness, or recent sick contacts. Patient did have leukocytosis likely reactive to vomiting inflammatory response as well as hypokalemia of 3.0, initial CT abdomen showed no acute issues. patient was admitted to the medical-surgical unit for further evaluation and treatment of cyclic vomiting, dehydration and hypokalemia. Review of Systems Review of Systems: All systems reviewed & are unremarkable except as noted in HPI and below PMFSH Past Medical History Medical History Colon cancer screening Depression Radius/ulna fracture Family History Family History Mother No problems noted. Father No problems noted. Social History Social History Years smoked: 1 Smoking status: Current every day smoker Tobacco type: e-cigarettes/vaping Additional smoking assessment comments: smoke cigarettes frequency amount unknown Alcohol intake: never Alcohol use details: denies alcohol use Substance use: current Substance use type: marijuana Other substance usage details: daily Last use: 01/27/24 1400 Do You Feel Safe in your Home?: Yes Lack of Transportation: No Lack of Food: Never True Current Housing: I Have Housing Concerned About Future Housing: No Difficulty Paying Gas/Electric Bills: No Difficulty Paying for Meds: YES Currently Unemployed: No Education: Associate Degree Difficulty w/ Childcare or Family Care: No Living arrangements: with family Gender identity (if verbalized by the patient): Female Spiritual care concerns: No Agree to blood products: Yes Meds Home Medications and Allergies Home Medications Medication Instructions Recorded Confirmed Type sertraline 50 mg tablet 75 mg PO HS 05/07/19 01/27/24 History amlodipine 5 mg tablet (Norvasc) 5 mg PO QAM 30 days #30 tabs 02/11/22 01/27/24 Rx Lactobacillus 1 cap PO DAILY 12/29/22 01/27/24 History acidophilus-Bifidobac.animalis 2.5 billion cell capsule (Daily Probiotic) cholecalciferol (vitamin D3) 25 25 mcg PO DAILY 12/29/22 01/27/24 History mcg (1,000 unit) tablet (Vitamin D3) mirtazapine 15 mg tablet 15 mg PO HS 12/29/22 01/27/24 History ondansetron 4 mg disintegrating 4 mg PO Q6H PRN nausea and 10/28/23 01/27/24 Rx tablet vomiting #20 tabs Allergies Allergy/AdvReac Type Severity Reaction Status Date / Time hydrocodone AdvReac Mild nausea Verified 01/27/24 15:32 vomiting Penicillins AdvReac Redness of Verified 01/27/24 15:32 Skin Vital Signs Vital Signs - 24 hr 01/27/24 15:27 01/27/24 17:10 01/27/24 17:10 Temperature 99.6 F 99.5 F Pulse Rate 72 77 Respiratory Rate 18 18 Blood Pressure 197/93 H 131/77 Pulse Oximetry 97 99 99 Oxygen Delivery Room Air Room Air Room Air 01/27/24 20:00 01/28/24 00:00 01/28/24 04:00 Temperature 98.4 F 98.6 F 98.8 F Pulse Rate 71 72 68 Respiratory Rate 18 16 16 Blood Pressure 131/88 145/88 H 189/102 H Pulse Oximetry 95 97 96 Oxygen Delivery Room Air Room Air Room Air 01/28/24 06:33 Temperature Pulse Rate Respiratory Rate Blood Pressure 121/70 Pulse
--- NOTE | 2024-01-28 14:26 | PC.NURSE ---
she as slept all morning. claims if she sips h20 she violently throws up. she does have approx 100ml in emesis bag of clear yellowish. cont to refuse oral meds since this am, claims she will take later. oral temp 101. does not feel warm. c/o of chills off and on. rectal temp 100.8 bp elevated and prn iv med given for bp and one for n/v. lanny ortega aware of all. also aware of not taking meds K+
[2024-01-28] MEDS: ACETAMINOPHEN 650 MG SUPPOSITORY RECTAL (14:42)
[2024-01-28] MEDS: MIRTAZAPINE 15 MG TABLET PO (20:28)
[2024-01-28] MEDS: SERTRALINE HCL 25 MG TABLET 75 MG PO (20:28)
[2024-01-29] VITALS (7 sets, daily range): BP systolic 109–179; BP diastolic 76–109; PULSE 82–96; RESP 16–18; TEMP 36.4–37.4; O2SAT 93–97
[2024-01-29] MEDS: hydrALAZINE HCL 20 MG/ML VIAL IV PUSH (00:21)
[2024-01-29] MEDS: ONDANSETRON INJ 4 MG/2 ML VIAL IV PUSH ×2 (02:35→21:20)
[2024-01-29] MEDS: ACETAMINOPHEN 325 MG TABLET 650 MG PO (04:33)
[2024-01-29 05:51] LABS: Basophils Absolute Auto 0.05 K/mm3 (0.00-0.10); Basophils Percent Auto 0.3 % (0.0-1.0); Hematocrit 37.5 % (35.0-49.0); Hemoglobin 12.7 g/dL (12.0-15.0); Immature Granulocyte Absolute 0.13 K/mm3 (0.00-0.00); Immature Granulocyte Percent A 0.8 % (0.0-0.0); Lymphocytes Absolute Auto 1.67 K/mm3 (1.10-4.50); Lymphocytes Percent Auto 10.9 % (18.0-42.0); Mean Corpuscular HGB Conc 33.9 g/dL (32-36); Mean Corpuscular Hemoglobin 29.1 pg (27.0-31.0); Mean Corpuscular Volume 85.8 fL (78.0-102.0); Mean Platelet Volume 10.4 fl (9.2-11.8); Monocytes Absolute Auto 1.06 K/mm3 (0.10-0.90); Monocytes Percent Auto 6.9 % (2.0-11.0); Neutrophils Absolute Auto 12.42 K/mm3 (1.70-7.20); Neutrophils Percent Auto 81.1 % (50.0-70.0); Platelet Count Result 341 K/mm3 (150-420); Red Blood Count 4.37 M/mm3 (4.20-5.40); Red Cell Distribution Width 13.2 % (11.6-14.4); White Blood Count 15.3 K/mm3 (4.8-10.8)
[2024-01-29 06:19] LABS: Alanine Aminotransferase 24 U/L (14-59); Albumin Level 3.5 g/dL (3.4-5.0); Alkaline Phosphatase 79 U/L (46-116); Anion Gap 11 mmol/L (4-12); Aspartate Amino Transferase 20 U/L (15-37); Bilirubin,Total 0.8 mg/dL (0.00-1.00); Blood Urea Nitrogen 11 mg/dL (7-18); Calcium 8.2 mg/dL (8.5-10.1); Carbon Dioxide 26 mmol/L (21-32); Chloride 98 mmol/L (98-108); Estimated CRCL calculation 82 ml/min; Estimated Glomerular Filt Rate > 60; Glucose 146 mg/dL (70-99); Magnesium 2.1 mg/dL (1.8-2.4); Osmolality Calculated 282 mOsm/kg (285-295); Potassium 2.8 mmol/L (3.5-5.1); Sodium 135 mmol/L (136-145); Total Protein 6.9 g/dL (6.4-8.2)
[2024-01-29] MEDS: LACTATED RINGERS 1,000 ML 100 ML IV CONT ×2 (08:40→18:45)
[2024-01-29] MEDS: amLODIPine BESYLATE 5 MG TABLET PO (10:00)
[2024-01-29] MEDS: CHOLECALCIFEROL 1,000 UNITS TABLET 1000 UNITS PO (10:11)
[2024-01-29] MEDS: ENOXAPARIN 40 MG/0.4 ML SYRINGE SUB-Q (10:12)
[2024-01-29] MEDS: PANTOPRAZOLE SODIUM IV 40 MG VIAL IV PUSH ×2 (10:14→17:20)
[2024-01-29] MEDS: HALOPERIDOL LACTATE 5 MG/ML VIAL IV PUSH (11:40)
--- NOTE | 2024-01-29 13:26 | P.PNIM_ITS ---
Progress Note: A&P Assessment and Plan (1) Cannabinoid hyperemesis syndrome: Code(s): R11.2 - Nausea with vomiting, unspecified; F12.90 - Cannabis use, unspecified, uncomplicated Status: Acute Assessment and Plan: * drug screen was positive for marijuana * Chronic * Antiemetics * IV fluids * PPI * gave Haldol x1 dose * CT abdomen with no acute issues * advance diet when patient can tolerate * monitor and replenish electrolytes especially potassium and magnesium 01/29/24: * mild fever overnight * COVID/RSV/Influenza rule out infectious process * leukocytosis trending up * CT ABD pending (2) Hypokalemia: Code(s): E87.6 - Hypokalemia Status: Acute Assessment and Plan: * K+3.0 * secondary to nausea vomiting * replenished with 40 mEq * repeat BNP in a.m. 01/29/24 * 2.8 gave 60 meq (3) Cannabis abuse: Code(s): F12.10 - Cannabis abuse, uncomplicated Status: Acute Assessment and Plan: * encouraged immediate cessation likely cause of chronic conditions * provide education at discharge (4) Nicotine dependence: Code(s): F17.200 - Nicotine dependence, unspecified, uncomplicated Status: Acute Assessment and Plan: Smoking ? smoking cessation education ? nicotine patch daily ? remove at night Plan Code status: Full code per patient DVT prophylaxis: Lovenox Stress ulcer prophylaxis: Protonix 40 daily PT/OT notes: ambulatory Disposition: patient was admitted to the medical unit due to cyclic vomiting will continue with IV hydration and replenish electrolytes will advance diet as tolerated patient can discharge to home once tolerating oral intake. Time Spent With Patient Time with patient: 15 - 25 minutes Subjective Date/time seen: 01/29/24 13:26 Interval history: patient is a 48-year-old female who was admitted due to cyclic vomiting, dehydration, and hypokalemia 01/29/2024: patient continues to have emesis overnight this a.m. she states she is able to tolerate some liquid. Patient febrile overnight with chills denies any chest pain or shortness and breath and mild abdominal pain. Review of Systems Review of Systems: All systems reviewed & are unremarkable except as noted in HPI and below Exam Narrative: Physical Exam: * GENERAL: Alert and oriented x 3. No acute distress. * EYES: EOMI. No scleral icterus. PERRLA. * HEENT: Moist mucous membranes. * LUNGS: Clear to auscultation bilaterally. No accessory muscle use. * CARDIOVASCULAR: Regular rate and rhythm. No murmur. No JVD. S1-S2 * ABDOMEN: Soft, non tenderness and non-distended. No palpable masses. * EXTREMITIES: No edema. Non-tender * SKIN: No rashes or lesions. Skin warm, dry. * NEUROLOGIC: No focal neurological deficits. CN II-XII grossly intact * PSYCHIATRIC: Appropriate mood and affect. Good judgement and insight. No visual or auditory hallucinations. No suicidal or homicidal ideation. Objective Data Vital Signs Vital Signs:
--- NOTE | 2024-01-29 13:26 | PM.IMPN ---
Progress Note: A&P Assessment and Plan (1) Cannabinoid hyperemesis syndrome: Code(s): R11.2 - Nausea with vomiting, unspecified; F12.90 - Cannabis use, unspecified, uncomplicated Status: Acute Assessment and Plan: drug screen was positive for marijuana Chronic Antiemetics IV fluids PPI gave Haldol x1 dose CT abdomen with no acute issues advance diet when patient can tolerate monitor and replenish electrolytes especially potassium and magnesium 01/29/24: mild fever overnight COVID/RSV/Influenza rule out infectious process leukocytosis trending up CT ABD pending (2) Hypokalemia: Code(s): E87.6 - Hypokalemia Status: Acute Assessment and Plan: K+3.0 secondary to nausea vomiting replenished with 40 mEq repeat BNP in a.m. 01/29/24 2.8 gave 60 meq (3) Cannabis abuse: Code(s): F12.10 - Cannabis abuse, uncomplicated Status: Acute Assessment and Plan: encouraged immediate cessation likely cause of chronic conditions provide education at discharge (4) Nicotine dependence: Code(s): F17.200 - Nicotine dependence, unspecified, uncomplicated Status: Acute Assessment and Plan: Smoking ? smoking cessation education ? nicotine patch daily ? remove at night Plan Code status: Full code per patient DVT prophylaxis: Lovenox Stress ulcer prophylaxis: Protonix 40 daily PT/OT notes: ambulatory Disposition: patient was admitted to the medical unit due to cyclic vomiting will continue with IV hydration and replenish electrolytes will advance diet as tolerated patient can discharge to home once tolerating oral intake. Time Spent With Patient Time with patient: 15 - 25 minutes Subjective Date/time seen: 01/29/24 13:26 Interval history: patient is a 48-year-old female who was admitted due to cyclic vomiting, dehydration, and hypokalemia 01/29/2024: patient continues to have emesis overnight this a.m. she states she is able to tolerate some liquid. Patient febrile overnight with chills denies any chest pain or shortness and breath and mild abdominal pain. Review of Systems Review of Systems: All systems reviewed & are unremarkable except as noted in HPI and below Exam Narrative: Physical Exam: GENERAL: Alert and oriented x 3. No acute distress. EYES: EOMI. No scleral icterus. PERRLA. HEENT: Moist mucous membranes. LUNGS: Clear to auscultation bilaterally. No accessory muscle use. CARDIOVASCULAR: Regular rate and rhythm. No murmur. No JVD. S1-S2 ABDOMEN: Soft, non tenderness and non-distended. No palpable masses. EXTREMITIES: No edema. Non-tender SKIN: No rashes or lesions. Skin warm, dry. NEUROLOGIC: No focal neurological deficits. CN II-XII grossly intact PSYCHIATRIC: Appropriate mood and affect. Good judgement and insight. No visual or auditory hallucinations. No suicidal or homicidal ideation. Objective Data Vital Signs Vital Signs: Vital Signs - 24 hr 01/28/24 14:42 01/28/24 13:35 01/28/24 16:00 Temperature 100.8 F H 101 F H 99.9 F H Pulse Rate 84 84 Respiratory Rate 18 18 Blood Pressure 185/115 H 116/68 Pulse Oximetry 96 96 Oxygen Delivery Room Air Room Air 01/28/24 15:45 01/28/24 20:00 01/28/24 20:00 Temperature 99.1 F 99.1 F Pulse Rate 84 89 Respiratory Rate 18 18 Blood Pressure 147/83 H Pulse Oximetry 96 96 Oxygen Delivery Room Air Room Air 01/29/24 00:00 01/29/24 02:38 01/29/24 04:00 Temperature 98.8 F Pulse Rate 93 Respiratory Rate 18 Blood Pressure 178/109 H 179/97 H 120/76 Pulse Oximetry 97 Oxygen Delivery Room Air Intake/Output Intake/Output: Intake & Output 01/26/24 01/27/24 01/28/24 01/29/24 23:59 23:59 23:59 23:59 Intake Total 1580 4110 1480 Output Total 1 Balance 1580 4110 1479 Meds/Results Medications: Active Medications Generic Name Dose
[2024-01-29 13:42] LABS: Influenza A QL RT-PCR Negative (Negative); Influenza B QL RT-PCR Negative (Negative); RSV RNA, RT-PCR Negative (Negative); SARS-CoV-2 RNA PCR Negative (Negative)
[2024-01-29] MEDS: KCL 20 MEQ/SW 100 ML 100 ML 50 MEQ IVPB ×2 (14:14→19:47)
[2024-01-29] MEDS: POTASSIUM CHLORIDE 20 MEQ PACKET (FOR LIQUID) 40 MEQ PO (14:22)
[2024-01-29] MEDS: predniSONE 20 MG TABLET 40 MG PO (17:19)
[2024-01-29 19:27] LABS: CRP < 0.5 mg/dL (0.0-0.9); Erythrocyte Sedimentation Rate 17 mm/hr (0-15)
[2024-01-29] MEDS: SERTRALINE HCL 25 MG TABLET 75 MG PO (21:20)
[2024-01-29] MEDS: MIRTAZAPINE 15 MG TABLET PO (21:20)
[2024-01-30] VITALS: BP 156/82; PULSE 88; RESP 18; TEMP 37.1; O2SAT 96
[2024-01-30] MEDS: hydrALAZINE HCL 20 MG/ML VIAL IV PUSH (03:52)
[2024-01-30 04:00] VITALS: BP 198/117; PULSE 91; RESP 18; TEMP 37.1; O2SAT 95
[2024-01-30 05:00] VITALS: BP 178/97; PULSE 103; RESP 18; O2SAT 96
[2024-01-30 06:30] LABS: Basophils Absolute Auto 0.03 K/mm3 (0.00-0.10); Basophils Percent Auto 0.2 % (0.0-1.0); Hematocrit 39.5 % (35.0-49.0); Hemoglobin 13.2 g/dL (12.0-15.0); Immature Granulocyte Absolute 0.14 K/mm3 (0.00-0.00); Lymphocytes Absolute Auto 1.31 K/mm3 (1.10-4.50); Lymphocytes Percent Auto 9.7 % (18.0-42.0); Mean Corpuscular HGB Conc 33.4 g/dL (32-36); Mean Corpuscular Hemoglobin 28.8 pg (27.0-31.0); Mean Corpuscular Volume 86.1 fL (78.0-102.0); Mean Platelet Volume 10.1 fl (9.2-11.8); Monocytes Absolute Auto 0.98 K/mm3 (0.10-0.90); Monocytes Percent Auto 7.2 % (2.0-11.0); Neutrophils Absolute Auto 11.08 K/mm3 (1.70-7.20); Neutrophils Percent Auto 81.9 % (50.0-70.0); Platelet Count Result 378 K/mm3 (150-420); Red Blood Count 4.59 M/mm3 (4.20-5.40); White Blood Count 13.5 K/mm3 (4.8-10.8)
[2024-01-30 06:46] LABS: Alanine Aminotransferase 21 U/L (14-59); Albumin Level 3.5 g/dL (3.4-5.0); Alkaline Phosphatase 73 U/L (46-116); Anion Gap 11 mmol/L (4-12); Aspartate Amino Transferase 10 U/L (15-37); Bilirubin,Total 0.6 mg/dL (0.00-1.00); Blood Urea Nitrogen 10 mg/dL (7-18); Calcium 8.4 mg/dL (8.5-10.1); Carbon Dioxide 25 mmol/L (21-32); Chloride 99 mmol/L (98-108); Estimated CRCL calculation 83 ml/min; Estimated Glomerular Filt Rate > 60; Glucose 120 mg/dL (70-99); Magnesium 2.3 mg/dL (1.8-2.4); Osmolality Calculated 280 mOsm/kg (285-295); Potassium 3.4 mmol/L (3.5-5.1); Sodium 135 mmol/L (136-145); Total Protein 7.1 g/dL (6.4-8.2)
[2024-01-30 07:50] VITALS: BP 140/87; PULSE 97; RESP 16; TEMP 36.6; O2SAT 95
[2024-01-30 08:20] VITALS: PULSE 97; RESP 16; O2SAT 95
[2024-01-30] MEDS: PANTOPRAZOLE SODIUM IV 40 MG VIAL IV PUSH (09:42)
[2024-01-30] MEDS: CHOLECALCIFEROL 1,000 UNITS TABLET 1000 UNITS PO (09:42)
[2024-01-30] MEDS: predniSONE 20 MG TABLET 40 MG PO (09:42)
[2024-01-30] MEDS: POTASSIUM CHLORIDE 20 MEQ ER TABLET 40 MEQ PO (09:42)
[2024-01-30] MEDS: LOSARTAN POTASSIUM 50 MG TABLET PO (09:43)
--- NOTE | 2024-01-30 10:47 | PM.DS ---
DS: Admitting Diagnosis Discharge Date 01/30/2024 Admitting Diagnosis cyclic vomiting DS: Discharge Diagnosis Discharge Diagnosis (1) Mesenteric panniculitis: Code(s): K65.4 - Sclerosing mesenteritis Status: Acute (2) Cannabinoid hyperemesis syndrome: Code(s): R11.2 - Nausea with vomiting, unspecified; F12.90 - Cannabis use, unspecified, uncomplicated Status: Acute (3) Hypokalemia: Code(s): E87.6 - Hypokalemia Status: Acute (4) Cannabis abuse: Code(s): F12.10 - Cannabis abuse, uncomplicated Status: Acute (5) Nicotine dependence: Code(s): F17.200 - Nicotine dependence, unspecified, uncomplicated Status: Acute Plan Disposition: Discharged to home DS: Summary Hospital Course Reason for hospitalization: mesenteric Panniculitis/ cyclic vomiting Hospital Course: Patient is a 48-year-old female who presented to the emergency department with uncontrolled nausea and vomiting. patient had come to the ER the previous day with same complaint and was given Zofran and fluids in the emergency department with improvement and discharged home however patient states the nausea and vomiting returned and she has been unable to tolerate any oral intake. patient does have a past medical history hypertension and cyclic vomiting syndrome secondary to cannabinoid hyperemesis. patient denied any chest pain, shortness of breath, fever, chills, dizziness, or recent sick contacts. Patient did have leukocytosis likely reactive to vomiting inflammatory response as well as hypokalemia of 3.0, initial CT abdomen showed no acute issues. patient was admitted to the medical-surgical unit for further evaluation and treatment of cyclic vomiting, dehydration and hypokalemia. patient was treated with IV fluids, antiemetics attempted to doses Haldol for relief patient with slow improvement but was able to tolerate oral intake following day but continued to nausea and vomiting later that evening. Patient fever overnight and leukocytosis trended up to 15 at which point I did a CT abdomen as well as COVID/RSV/ influenza to rule out any infectious source. after CT abdomen patient was found to have mesenteric Panniculitis. I initiated patient on a steroid taper as well as ordered CRP, ESR and NORA to evaluate for any underlying autoimmune disease ESR was elevated NORA was still pending at time of discharge. Patient with overall improvement after prednisone was able to tolerate oral intake and reported improved abdominal pain and nausea no further vomiting overnight. Patient was provided education on diagnosis as well as the need for follow-up with her primary for further autoimmune testing and may require a referral to fiber optics supervisor to help reduce exacerbations. I also encouraged marijuana cessation which could be a trigger. During patient's stay she continued to have hypertension when unable to tolerate oral intake I was providing IV hydralazine to control BP as well as replacing patient's potassium. I have resumed patient's Norvasc however did not provide much improvement to patient's BP I discussed with patient that I discontinued her Norvasc and started her on losartan 50 mg daily for better BP control as well as to assist with renal protection and potassium supplement. patient with overall better BP control. Patient was discharged home and understood the need to follow-up with primary care physician I encouraged oral hydration and to review education provided on diet. Status at Discharge Functional status at discharge: independent ambulation Time Spent with Patient Time attestation: Total time spent providing and/or coordinating discharge services: Time spent: Greater than 30 minutes Exam Narrative: Physical Exam: GENERAL: Alert and oriented x 3. No acute distress. EYES: EOMI. No scleral icterus. PERRLA. HEENT: Moist mucous membranes. LUNGS: Clear to auscult
--- NOTE | 2024-01-30 11:55 | PC.NURSE ---
Patient discharging home. IV site removed, tip intact. Dressing applied to site. All belongings gathered together and sent home with patient. All discharge instructions and education reviewed with patient. Patient states understanding, denies any questions at this time. Patient accompanied to front door via wheelchair by this nurse, left via private vehicle with neighbor.
--- NOTE | 2024-01-31 12:55 | PC.NURSE ---
Discharge call back complete, states still doesn't feel well, requesting a return to work note, [employer] Bonnie Castañeda notified ofpatient rquest
== END 2024-01-30 12:00 | disposition home or self-care (01) ==
LOC: CHSED 16:15 → CHS2ND 16:42
PROVIDERS: Admitting Provider Internal Medicine; Emergency Provider Emergency Medicine; PCP Physician Assistant; Visit Provider Nurse Practitioner Family
DX: K65.4 Sclerosing mesenteritis (principal); R11.2 Nausea with vomiting, unspecified; F12.188 Cannabis abuse with other cannabis-induced disorder; I10 Essential (primary) hypertension; E87.6 Hypokalemia; E86.0 Dehydration; F17.210 Nicotine dependence, cigarettes, uncomplicated; Z79.899 Other long term (current) drug therapy; Z20.822 Contact with and (suspected) exposure to COVID-19
CPT/HCPCS: 36415; 74176; 80053; 80307; 81001; 83735; 85025; 85027; 85652; 86038; 86039; 86140; 87637; 96365; 96366; 96372; 96374; 96375; 96376; 99285; A9270; G0378; J0360; J1630; J1650; J2405; J2470; J2765; J3480; J7030; J7120; J7512

== ENCOUNTER 2024-08-31 15:28 | Observation (INO) | payer SELFPAY ==
[2024-08-31] VITALS (14 sets, daily range): BP systolic 143–177; BP diastolic 86–117; PULSE 75–97; RESP 16–98; TEMP 36.2; O2SAT 95–99; BMI 35.0
--- NOTE | ~2024-08-31 | XR_ITS ---
XR chest 1V portable Ordering provider: Reyes Lew MD History: 48 years Female with . Cough/ fever/ nausea/ vomiting . Comparison: May 08, 2019 FINDINGS: MEDIASTINUM: The cardiac silhouette is not enlarged. LUNGS: No infiltrates, effusions or pneumothorax. OTHER: No free air under the diaphragm. IMPRESSION: No acute cardiopulmonary pathology. Reviewed, dictated and finalized at location A.
--- OUTSIDE RECORDS SUMMARY | 2024-08-31 15:32 | XMS_ITS | Data Portability ---
Author Organization [facility] [place] Address [address] [place] [address] Assessment Encounter Date Assessment Date Assessment LastModified by Organization Details LastModified Time 04/20/2022 04/20/2022 Annual gynecological exam performed. Patient will come back in a year unless there are new symptoms. [email or web address] Not available 04/20/2022 11:56:25 07/26/2023 07/26/2023 Annual gynecological exam performed. Patient will come back in a year unless there are new symptoms. [email or web address] Not available 07/25/2023 14:56:36 07/19/2024 07/19/2024 Annual gynecological exam performed. Patient will come back in a year unless there are new symptoms. [email or web address] Not available 07/19/2024 16:51:36 Plan of Treatment Reminders Order Date Submit Date Provider Last Modified By Organization Details Last Modified Time Details Appointments None recorded. Lab CBC w/ auto diff 2024 025 [facility] (Lab), [address], [place], [address], 5 03:14:04 CMP, serum or plasma 2024 025 [facility] (Lab), [address], [place], [address], 5 03:14:05 lipid panel, blood 2024 025 [facility] (Lab), [address], [place], [address], 5 03:14:05 TSH, serum or plasma 2024 025 [facility] (Lab), [address], [place], [address], 5 03:14:05 25-hydroxy vitamin D2 + 25-hydroxy vitamin D3, QN, serum or plasma 2024 025 [facility] (Lab), [address], [place], [address], 5 03:14:06 Referral None recorded. Procedures None recorded. Surgeries None recorded. Imaging MAMMO, screening, digital, bilateral [address] [facility], [address], [place], [address], 5 05:01:13 MAMMO, screening, digital, bilateral 2022 023 [email or web address] 1 [facility], [address], [place], [address], 4 15:29:55 Medication Orders None recorded. Patient TargetsNo targets recorded. Patient InstructionsNo instructions recorded. Reason for Referral None Reported. Results Created Date Observation Date Name Description Value Unit Range Abnormal Flag Note LastModifiedBy Organization Detail LastModifiedTime 09/02/19 21 09/01/2020 pap, IG + HR HPV image guided Pap, HPV regardless of Pap result SEE RESULT S BELOW CASE REPOR T: Cytol ogy Gynec ologi mayela Repor t Case: [id number] Autho marco reveles Provi fidel: Rosalva Longoria CNM Colle cted: 09/01 1434 Order ing Locat ion: [place] Patho log[facility] Recei irvin: 09/02 0018 First Scree n: Juarez rs, Penelope , CT Speci men: Scree amanda Pap - Image d, Cervi x STATE MENT OF ADEQU ACY: Satis facto ry for evalu ation Trans forma tion zone compo nent prese nt FINAL DIAGN OSIS: Negat eileen for Intra epith elial Lesio n or Jacqueline rebecca Elect sashagibson hillmanabe ernesto d by Juarez mcnulty, Penelope , BREANNA on 2020 at 3:32 PM ----- ----- ----- ----- ----- ----- ----- ----- ----- ----- ----- ----- ----- ----- ----- ----- ----- ---- HPV RESUL TS: HPV mRNA E6/E7 : No HPV mRNA Detec eder NOTE: This high risk HPV mRNA assay detec ts fourt een high- risk HPV types (16, 18, 31, 33, 35, 39, 45, 51, 52, 56, 58, 59, 66, 68) witho ut diffe renti ation . CHART ABLE COMME NT: Note: This speci men was revie wed by a Cytot echno logis t and/o r Patho logis t (as indic ated in this repor t) after evalu ation using the Thinp rep Imagi ng Syste m. CLINI MAYELA INFOR MATIO N: Menst rual Statu s: LMP (if appli cable ): 017 Clini mayela Histo ry/Pr eviou s Pap: Type of Neopl caleb (if appli cable ): Other Histo ry: Hormo [place] (if appli cable ): PAP EDUCA NABEEL L NOTE: The Pap Test is a scree amanda test with an inher ent false negat eileen rate. Liqui d-bas e sampl ing may decre ase, but will not elimi tamara, false negat eileen resul ts. A negat eileen resul t does not precl ude the prese nce and/o r devel opmen t of disea se, since the prese nce of abnor mal cells in the sampl e depen ds on the locat ion of the lesio n and sampl ing techn ique. Tavo nued regul ar scree amanda is the best metho d of viv isaacs preve ntion . If repor eder cytol ogic findi ng do not corre late with physi mayela and/o r histo rical findi ngs, furth er inves tigat ion is recom jessie d, as clini ernesto luz nted. Not Available [facility] (Lab) [address], [place], [address], 09/02/2020 16:35:31 04/20/19 23 04/20/2022 IMAGE GUIDE D PAP AND HPV REGAR DLESS image guided Pap, HPV regardless of Pap result SEE RESULT S BELOW CASE REPOR T: Cytol ogy Gynec ologi mayela Repor t Case: [id number] Autho marco reveles Provi fidel: Rosalva Longoria, AMANDA Colle cted: 04/20 1801 Order ing Locat ion: [place] Patho logy Recei irvin: 04/21 0416 First Scree n: Haylie Sanford, CT Rescr een: Zack Almonte am, CT Speci men: Scree amanda Pap - Image d, Cervi x STATE MENT OF ADEQU ACY: Satis facto ry for evalu ation Trans forma tion zone compo nent prese nt FINAL DIAGN OSIS: Negat eileen for Intra epith elial Lesio n or Jacqueline fernandez (NIL) . Shift in lianne sugge stive of bacte rial vagin osis. Elect abbie hammond ernesto d by Zack Almotne am, CT on 023 at 6:15 AM ----- ----- ----- ----- ----- ----- ----- ----- ----- ----- ----- ----- ----- ----- ----- ----- ----- ---- HPV RESUL TS: HPV mRNA E6/E7 : No HPV mRNA Detec eder NOTE: This high risk HPV mRNA assay detec ts fourt een high- risk HPV types (16, 18, 31, 33, 35, 39, 45, 51, 52, 56, 58, 59, 66, 68) witho ut diffe renti ation . COMME NT: Note: This speci men was revie wed by a Cytot echno logis t and/o r Patho logis t (as indic ated in this repor t) after evalu ation using the Thinp rep Imagi ng Syste m. CLINI MAYELA INFOR MATIO N: Menst rual Statu s: LMP (if appli cable ): Clini mayela Histo ry/Pr eviou s Pap: Type of Neopl caleb (if appli cable ): Signi fican t Clini mayela Findi ngs: Other Histo ry: Hormo [place] (if appli cable ): PAP EDUCA NABEEL L NOTE: The Pap Test is a scree amanda test with an inher ent false negat eileen rate. Liqui d-bas ed sampl ing may decre ase, but will not elimi tamara, false negat eileen resul ts. A negat eileen resul t does not precl ude the prese nce and/o r devel opmen t of disea se, since the prese nce of abnor mal cells in the sampl e depen ds on the locat ion of the lesio n and sampl ing techn ique. Tavo nued regul ar scree amanda is the best metho d of cance r preve ntion . If repor eder cytol ogic findi ng do not corre late with physi mayela and/o r histo rical findi ngs, furth er inves tigat ion is recom jessie d, as clini ernesto luz nted. Not Available [facility] (Lab) [address], [place], [address], 04/22/2022 07:18:22 07/20/19 25 07/19/2024 CBC W/DIF F WBC 9.4 10'3/ uL 3.5-10 .5 Not Available [facility] (Lab) [address], [place], [address], 07/20/2024 03:13:59 07/20/19 25 07/19/2024 CBC W/DIF F RBC 4.29 10'6/ uL (based on docume nted legal sex) 3.80-5 .20 Not Available [facility] (Lab) [address], [place], [address], 07/20/2024 03:13:59 07/20/1907/19/2024 CBC W/DIF F HGB 12.3 g/dL (based on docume nted legal sex) 11.6-1 5.4 Not Available [facility] (Lab) [address], [place], [address], 07/20/2024 03:13:59 07/20/19 25 07/19/2024 CBC W/DIF F HCT 37.1 % (based on docume nted legal sex) 34.0-4 5.0 Not Available [facility] (Lab) [address], [place], [address], 07/20/2024 03:13:59 07/20/19 25 07/19/2024 CBC W/DIF F MCV 86.5 fL 80.0-9 9.0 Not Available [facility] (Lab) [address], [place], [address], 07/20/2024 03:13:59 07/20/1907/19/2024 CBC W/DIF F MCH 28.7 pg 27.0-3 4.0 Not Available [facility] (Lab) [address] [place], [address], 07/20/2024 03:13:59 07/20/19 25 07/19/2024 CBC W/DIF F MCHC 33.2 g/dL 32.0-3 5.5 Not Available [facility] (Lab) [address] [place], [address], 07/20/2024 03:13:59 07/20/19 25 07/19/2024 CBC W/DIF F RDW 12.6 % 11.0-1 5.0 Not Available [facility] (Lab) [address] [facility], [place], [address], 07/20/2024 03:13:59 07/20/1907/19/2024 CBC W/DIF F plt 335 10'3/ uL 150-40 0 Not Available [facility] (Lab) [address], [place], [address], 07/20/2024 03:13:59 07/20/19 25 07/19/2024 CBC W/DIF F MPV 10.4 fL 8.8-12 .1 Not Available [facility] (Lab) [address], [place], [address], 07/20/2024 03:13:59 07/20/19 25 07/19/2024 CBC W/DIF F neutrophils 66.0 % 34.0-7 3.0 Not Available [facility] (Lab) [address], [place], [address], 07/20/2024 03:13:59 07/20/19 25 07/19/2024 CBC W/DIF F lymphocytes 26.0 % 15.0-5 0.0 Not Available [facility] (Lab) [address], [place], [address], 07/20/2024 03:13:59 07/20/19 25 07/19/2024 CBC W/DIF F monocytes 5.7 % 1.0-15 .0 Not Available [facility] (Lab) [address], [place], [address], 07/20/2024 03:13:59 07/20/19 25 07/19/2024 CBC W/DIF F eosinophils 1.5 % 0.0-8. 0 Not Available [facility] (Lab) [address], [place], [address], 07/20/2024 03:13:59 07/20/19 25 07/19/2024 CBC W/DIF F basophils 0.6 % 0.0-2. 0 Not Available [facility] (Lab) [address], [place], [address], 07/20/2024 03:13:59 07/20/1907/19/2024 CBC W/DIF F immature granulocytes 0.2 % no define d refere nce range Immat ure Granu locyt es (IG) repre sents autom ated enume ratio n of Metam yeloc ytes, Myelo cytes and Promy elocy livia when IG is < 5%. Blast s are not inclu ded in IG and repor eder separ ately if prese nt. Not Available [facility] (Lab) [address], [place], [address], 07/20/2024 03:13:59 07/20/19 25 07/19/2024 CBC W/DIF F absolute neutrophils 6.2 10'3/ uL 1.5-8. 0 Not Available [facility] (Lab) [address], [place], [address], 07/20/2024 03:13:59 07/20/19 25 07/19/2024 CBC W/DIF F absolute lymphocytes 2.4 10'3/ uL 1.0-4. 0 Not Available [facility] (Lab) [address], [place], [address], 07/20/2024 03:13:59 07/20/19 25 07/19/2024 CBC W/DIF F absolute monocytes 0.5 10'3/ uL 0.2-1. 0 Not Available [facility] (Lab) [address], [place], [address], 07/20/2024 03:13:59 07/20/19 25 07/19/2024 CBC W/DIF F absolute eosinophils 0.1 10'3/ uL 0.0-0. 6 Not Available [facility] (Lab) [address], [place], [address], 07/20/2024 03:13:59 07/20/19 25 07/19/2024 CBC W/DIF F absolute basophils 0.1 10'3/ uL 0.0-0. 3 Not Available [facility] (Lab) [address], [place], [address], 07/20/2024 03:13:59 07/20/1907/19/2024 CBC W/DIF F absolute immature granulocytes 0.0 10'3/ uL 0.00-0 .10 Refer ence range s for nonbi nary/ inter sex or unspe cifie d gende r patie nts have not been estab lishe d. Pleas e refer to the follo wing table for range s estab lishe d for cisge nder patie nts and evalu ate in the clini mayela marry xt of the indiv idual patie nt: https ://marion glover book. nm.or g/gen derx Not Available [facility] (Lab) [address], [place], [address], 07/20/2024 03:13:59 07/20/1907/19/2024 LIPID PANEL ,AMA (LDL- CALC) total cholesterol 161 mg/dL 0-199 Not Available [facility] (Lab) [address] [place], [address], 07/20/2024 03:14:05 07/20/1907/19/2024 LIPID PANEL ,AMA (LDL- CALC) triglyceride s 211 mg/dL 0-150 high NCEP Refer ence Value s for Trigl yceri addi: Sharron l: <150 mg/dL Borde rline High: 150 - 199 mg/dL High: 200 - 499 mg/dL Very High: >/= 500 mg/dL Not Available [facility] (Lab) [address] [place], [address], 07/20/2024 03:14:05 07/20/1907/19/2024 LIPID PANEL ,AMA (LDL- CALC) HDL cholesterol 50 mg/dL >40 Not Available [facility] (Lab) [address] [place], [address], 07/20/2024 03:14:05 07/20/1907/19/2024 LIPID PANEL ,AMA (LDL- CALC) LDL cholesterol 80 mg/dL 0-99 Cutof f value s recom jessie d by the Natio nal Maricarmen stero l Educa tion Progr am: PAUL ABLE: Maricarmen stero l <200 mg/dL LDL <100 mg/dL BORDE RLINE : Maricarmen stero l 200-2 39 mg/dL LDL 101-1 59 mg/dL HIGHE R RISK: Maricarmen stero l >240 mg/dL LDL >160 mg/dL , HDL <40 mg/dL Not Available [facility] (Lab) [address], [place], [address], 07/20/2024 03:14:05 07/20/1907/19/2024 LIPID PANEL ,AMA (LDL- CALC) non-HDL cholesterol 111 mg/dL no refere nce range A reaso nable goal for non-H DL maricarmen stero l is one that is 30 mg/dL highe r than the LDL maricarmen stero l goal. Not Available [facility] (Lab) [address], [place], [address], 07/20/2024 03:14:05 07/20/1907/19/2024 LIPID PANEL ,AMA (LDL- CALC) chol/HDL ratio 3.2 . 0.0-5. 0 On August 10, 2022, [facility] labor atori arleen terry ed the equat ion for calcu latin g estim ated low-d ensit y lipop rotei n-cho leste rol (LDL- C) from the Fried gisela equat ion to the Radha n/Hop tracey equat ion. This new equat ion is only valid for lipid panel s with trigl yceri addi < 400 mg/dL . Blancai es arun reeson scart ed that this new equat ion will impro ve the accur acy of LDL-C , espec ially in scena damon when LDL-C orlando ntrat ions are relat ively low (< 100 mg/dL ), trigl yceri addi are eleva eder, or patie nt is non-f astin g. Refer ences : - Radha pedersen, Jose Buenrostro, Suleiman Beth , Karen sullivan, Freddie Arevalo, Freddie tinajero, [facility] , and Yohannes Siddiqui . 2013. Comp ariso n of a Novel Metho d vs the Fried gisela Equat ion for Estim ating Low-D ensit y Lipop rotei n Maricarmen stero l Level s from the Stand nahid Lipid Profchris le. EITAN: The Journ al of the Ameri can Medic al Assoc iatio n 310 (19): 2060- . - Miguel pitt V, Sherley J, Angel pitt A, Sona M, Kat malave R, Mckenna pitt E, Darling formerly [facility] RS, Artur SR, Radha pedersen SS. Fast ing Versu s Nonfa sting and Low-D ensit y Lipop rotei n Maricarmen stero l Accur acy. Circu latio n. 2017Apr 19;137 (1):1 0-19. Not Available [facility] (Lab) [address] [place], [address], 07/20/2024 03:14:05 07/20/19 25 07/19/2024 CMP(C OMPRE HENSI VE METAB OLIC PANEL ) sodium 138 mmol/ L 133-14 6 Not Available [facility] (Lab) [address] [place], [address], 07/20/2024 03:14:05 07/20/19 25 07/19/2024 CMP(C OMPRE HENSI VE METAB OLIC PANEL ) potassium 3.9 mmol/ L 3.5-5. 1 Not Available [facility] (Lab) [address] [place], [address], 07/20/2024 03:14:05 07/20/19 25 07/19/2024 CMP(C OMPRE HENSI VE METAB OLIC PANEL ) chloride 100 mmol/ L 98-107 Not Available [facility] (Lab) [address] [place], [address], 07/20/2024 03:14:05 07/20/19 25 07/19/2024 CMP(C OMPRE HENSI VE METAB OLIC PANEL ) carbon dioxide 31 mmol/ L 21-31 Not Available [facility] (Lab) [address] [facility], [place], [address], 07/20/2024 03:14:05 07/20/1907/19/2024 CMP(C OMPRE HENSI VE METAB OLIC PANEL ) anion gap 7 mmol/ L 4-13 Not Available [facility] (Lab) [address], [place], [address], 07/20/2024 03:14:05 07/20/1907/19/2024 CMP(C OMPRE HENSI VE METAB OLIC PANEL ) blood urea nitrogen 18 mg/dL 7-25 Not Available [facility] (Lab) [address], [place], [address], 07/20/2024 03:14:05 07/20/19 25 07/19/2024 CMP(C OMPRE HENSI VE METAB OLIC PANEL ) creatinine 1.00 mg/dL 0.60-1 .30 Not Available [facility] (Lab) [address], [place], [address], 07/20/2024 03:14:05 07/20/1907/19/2024 CMP(C OMPRE HENSI VE METAB OLIC PANEL ) egfrcr (CKD-epi 2020) 70 mL/mi n/1.7 3_m2 >=60 Not Available [facility] (Lab) [address], [place], [address], 07/20/2024 03:14:05 07/20/19 25 07/19/2024 CMP(C OMPRE HENSI VE METAB OLIC PANEL ) calcium 9.5 mg/dL 8.3-10 .5 Not Available [facility] (Lab) [address], [place], [address], 07/20/2024 03:14:05 07/20/19 25 07/19/2024 CMP(C OMPRE HENSI VE METAB OLIC PANEL ) glucose 96 mg/dL 70-100 Not Available [facility] (Lab) [address], [place], [address], 07/20/2024 03:14:05 07/20/19 25 07/19/2024 CMP(C OMPRE HENSI VE METAB OLIC PANEL ) protein, total 7.2 g/dL 6.4-8. 3 Not Available [facility] (Lab) [address], [place], [address], 07/20/2024 03:14:05 07/20/19 25 07/19/2024 CMP(C OMPRE HENSI VE METAB OLIC PANEL ) albumin 4.5 g/dL 3.5-5. 0 Not Available [facility] (Lab) [address] [place], [address], 07/20/2024 03:14:05 07/20/19 25 07/19/2024 CMP(C OMPRE HENSI VE METAB OLIC PANEL ) ALT 13 units /L 9-43 Not Available [facility] (Lab) [address] [place], [address], 07/20/2024 03:14:05 07/20/19 25 07/19/2024 CMP(C OMPRE HENSI VE METAB OLIC PANEL ) alkaline phosphatase 79 units /L 34-104 Not Available [facility] (Lab) [address] [place], [address], 07/20/2024 03:14:05 07/20/19 25 07/19/2024 CMP(C OMPRE HENSI VE METAB OLIC PANEL ) AST 14 units /L 13-39 Not Available [facility] (Lab) [address] [place], [address], 07/20/2024 03:14:05 07/20/19 25 07/19/2024 CMP(C OMPRE HENSI VE METAB OLIC PANEL ) bilirubin, total 0.4 mg/dL 0.2-1. 2 Not Available [facility] (Lab) [address] [place], [address], 07/20/2024 03:14:05 07/20/19 25 07/19/2024 TSH, REFLE X FREE T4 TSH 1.88 uIU/m L 0.30-5 .33 Not Available [facility] (Lab) [address] [facility] [address], [place], [address], 07/20/2024 03:14:05 07/20/19 25 07/19/2024 VITAM IN D, 25-OH (TOTA L D2/D3 ) vitamin D, 25-hydroxy, total 25.2 NG/mL 30.0-1 00.0 low Sugge stive of Defic iency : <20 ng/mL Sugge stive of Insuf ficie ncy: 20-29 ng/mL Sugge stive of Suffi cienc y: 30-10 0 ng/mL Sugge stive of Toxic ity: >150 ng/mL Not Available [facility] (Lab) [address] [facility] [address], [place], [address], 07/20/2024 03:14:06 Result Notes None recorded. Problems Name Problem SNOMED Code Status Onset Date Resolution Date Notes Provider Name and Address Organization Details Recorded Time Pelvic and perineal pain 805878295 Completed 201908/29/2020 Pelvic and perineal pain;Pra ctice ID: 0001 Ally butts [facility] 11:13:46 Acute vaginiti s [id number] Completed 201708/29/2020 Acute vulvovag initis;R ecorded Elsewher e: No Locat ion: [facility] S ource: EHR Gear Inspector vielka: N Practi ce ID: 0001 Gildardo lable Time: 02:15:00 PM Ally butts [facility] 11:13:30 Clinical finding Completed 201608/29/2020 Presence of (intraut erine) contrace ptive device;R ecorded Elsewher e: No Locat ion: [facility] S ource: EHR Gear Inspector vielka: George Gibbs ce ID: 0001 Gildardo lable Time: 03:00:00 PM Ally Carter [facility] 11:13:[address] Concept Completed 201708/29/2020 Well woman check w/o abnormal finding; Recorded Elsewher e: No Locat ion: [facility] S ource: EHR Gear Inspector vielka: George Gibbs ce ID: 0001 Gildardo lable Time: 02:15:00 PM Ally Carter [facility] 11:13:51 Finding of pattern of menstrua l cycle Completed 201608/29/2020 Other specifie d irregula r menstrua tion;Rec orded Elsewher e: No Locat ion: [facility] George Gibbs ce ID: 0001 Gildardo lable Time: 12:00:00 PM Ally Carter [facility] 11:13:27 Contrace ptive sheath status [id number] Completed 201608/29/2020 Encounte r for routine checking of IUD;Ronal rded Elsewher e: No Locat ion: [facility]: George Gibbs ce ID: 0001 Gildardo lable Time: 01:45:00 PM Ally butts [facility] 11:13:29 Insertio n of intraute rine contrace ptive device Completed 201608/29/2020 Encounte r for insertio n of intraute rine contrace ptive device;R ecorded Elsewher e: No Locat ion: [facility] S ource: EHR Gear Inspector vielka: N Practi ce ID: 0001 Gildardo lable Time: 03:00:00 PM Ally butts [facility] 11:13:54 Finding of pattern of menstrua l cycle [id number] Completed 201608/29/2020 Excessiv e and frequent menstrua tion with irregula r cycle;Re corded Elsewher e: No Locat ion: [facility] S ource: EHR Gear Inspector vielka: N Rjti ce ID: 0001 Gildardo lable Time: 11:30:00 AM Ally butts, [facility] 11:13:[address] Concept Completed 201708/29/2020 Encntr for general adult medical exam w/o abnormal findings ;Recorde d Elsewher e: No Locat ion: [facility]: N Rjti ce ID: 0001 Gildardo lable Time: 02:15:00 PM Ally butts, [facility] 11:13:50 Pregnanc y test negative [id number] Completed 201608/29/2020 Encounte r for pregnanc y test, result negative ;Recorde d Elsewher e: No Locat ion: [facility]: N Rjti ce ID: 0001 Gildardo lable Time: 03:00:00 PM Ally butts, [facility] 11:13:32 Clinical finding Completed 201908/29/2020 Other specifie d disorder s of breast;R ecorded Elsewher e: No Locat ion: [facility] S ource: EHR Gear Inspector vielka: N Rjti ce ID: 0001 Gildardo lable Time: 04:30:00 PM Ally butts, [facility] 11:13:14 Disorder of intraute rine contrace ptive device Completed 201608/29/2020 [facility] compl of intraute rine contrace ptive device, init encntr;R ecorded Elsewher e: No Locat ion: [facility] S ource: EHR Gear Inspector vielka: N Rjti ce ID: 0001 Gildardo lable Time: 11:15:00 AM Ally Carter [facility] 1 11:13:48 Cyst of ovary Completed 201608/29/2020 Unspecif ied ovarian cyst, unspecif ied side;Rec orded Elsewher e: No Locat ion: [facility] S ource: EHR Gear Inspector vielka: N Practi ce ID: 0001 Gildardo lable Time: 12:00:00 PM [facility] 1 11:13:16 Problem Notes None recorded. Procedures Surgical History Date Name Laterality Status Provider Name and Address Organization Details Recorded Time 07/26/19 24 Date of Last Pap Smear completed [facility] 07/19/2024 16:55:24 04/18/19 24 Date of Last Colonoscopy completed [facility] 07/19/2024 16:56:22 06/23/19 17 endometrial biopsy completed [facility] 04/20/2022 09:54:16 04/18/19 12 open reduction of fracture of radius completed [facility] 04/20/2022 09:55:26 04/18/19 06 Hand tendon reconstruction completed [facility] 04/20/2022 11:59:54 Imaging Results None recorded. Procedure Notes None recorded. Medical Equipment None Reported. Allergies Allergen ID Allergen Name Allergen Category Reaction Reaction Severity Criticality Documentation Date Start Date Code Code System Note Provider Name and Address Organization Details Recorded Time 23228 Product containin g penicilli n (product) medicatio n rash Not available Not available 04/04/2020 17134 4028 SNOMED Ally butts, [facility] 1 11:13:03 27816 hydrocodo ne Not available Not available Not available Not available 09/01/2020 5489 RxNorm Ally butts, [facility] 12:16:09 Medications Name Sig Start Date Stop Date Status Note LastModified by Organization Details LastModified Time Mirena 21 mcg/24 hr (up to 8 years) 52 mg intrauter ine device Take by intraute rine route. 2023 active Not Available Not Available Not Avai lable atorvasta tin 20 mg tablet Take 1 tablet every day by oral route. active Not Available Not Available No t Available meloxicam 15 mg tablet Take 1 tablet every day by oral route. active Not Available Not Available No t Available metronida zole 0.75 % (37.5 mg/5 gram) vaginal gel Insert 1 applicat or full by vaginal route every day at bedtime for 5 nights 07/24 completed Not Available Not Available Not Available Flagyl 500 mg tablet take 1 tablet by oral route every 12 hours 06/11 completed Prescrib ed Elsewher e: No Locat ion: [facility] M odify By: ha Malave [email or web address] DateTime : 04/20/19 04:28:10 PM Not Available Not Available Not Available gabapenti n 100 mg capsule take 1 capsule by oral route 3 times every day 2023 active Not Available Not Available Not Avai lable sertralin e 20 mg/mL oral concentra te 2023 active Not Available Not Available Not Avai lable sertralin e 07/24 completed Not Available Not Available Not Available amlodipin e 2023 active Not Available Not Available Not Avai lable Vitals Date Recorded Body height Body mass index (BMI) Body weight Systolic blood pressure Diastolic blood pressure Provider Name and Address Organization Details Last Updated DateTime 09/01/2020 165.1 cm 33.6 kg/m2 94709.66 g 134 mm[Hg] 87 mm[Hg] Ally Carter [facility] 1 12:16:02 Date Recorded Body height Body mass index (BMI) Body weight Systolic blood pressure Diastolic blood pressure Provider Name and Address Organization Details Last Updated DateTime 06/03/2021 165.1 cm 35.1 kg/m2 01577.99 g 137 mm[Hg] 82 mm[Hg] Ally Carter [facility] 2 10:25:36 Date Recorded Body height Body mass index (BMI) Body weight Systolic blood pressure Diastolic blood pressure Provider Name and Address Organization Details Last Updated DateTime 04/20/2022 165.1 cm 32.6 kg/m2 31241.1 g 120 mm[Hg] 82 mm[Hg] Saida Echols [facility] 3 11:56:48 Date Recorded Body height Body mass index (BMI) Body weight Systolic blood pressure Diastolic blood pressure Provider Name and Address Organization Details Last Updated DateTime 07/26/2023 165.1 cm 35.6 kg/m2 90558.77 g 119 mm[Hg] 77 mm[Hg] Sharon Joel [facility] 4 12:00:38 Date Recorded Body height Body mass index (BMI) Body weight Systolic blood pressure Diastolic blood pressure Provider Name and Address Organization Details Last Updated DateTime 07/19/2024 165.1 cm 34.9 kg/m2 72936.4 g 144 mm[Hg] 87 mm[Hg] Melina Kwon [facility] 5 16:53:15 Social History Question Answer Notes LastModified by Organizat ion Details LastModified Time Tobacco Smoking Status Never Smoker Ally Raul butts [facility] 08/29/2020 11:40:35 Are You Blind Or Do You Have Difficulty Seeing? No [email or web address] Information n ot available 04/20/2022 What Is Your Level Of Caffeine Consumption? Occasional Information not available 04/20/2022 In The 14 Days Before Symptom Onset, Have You Had Close Contact With A Laboratory-confirm ed COVID-19 While That Case Was Ill? No [email or web address] Information n ot available 04/20/2022 In The 14 Days Before Symptom Onset, Have You Had Close Contact With A Person Who I [id number]|2024-09-01 15:17:38|2024-09-01 15:17:38|PC.NURSE||||"Pt discharged to home and self care. Discharge instructions given to pt regarding medications, Covid 19 care and precautions. Pt given a return to work slip. Instructed pt to make a follow up appointment with her PCP. Pt did verbalize understanding of all instructions. "
--- OUTSIDE RECORDS SUMMARY | 2024-08-31 15:32 | XMS_ITS | Clinical Summary ---
Author Organization [facility] Address [address] [place] [address] Phone Care Team Providers Care Historic Interpreter Name Role Phone Chan Goldstein MD Primary Care Provider [phone] Allergies Active Allergy Reactions Criticality Noted Date Comments Penicillin G Rash 05/12/2018 Medications No known medications Family History Medical History Relation Name Comments No Known Problems Father No Known Problems Mother Relation Name Status Comments Father Alive Mother Alive Social History Tobacco Use Types Packs/Day Years Used Date Smoking Tobacco: Never Smokeless Tobacco: Never Tobacco Cessation:Counseling Given: No Alcohol Use Standard Drinks/Week Comments Yes 0 (1 standard drink = 0.6 oz pur e alcohol) Sexually Active Control Partners Comments Not Currently Comments No Sex and Gender Information Value Date Recorded Sex Assigned at Not on file Legal Sex Female 10:42 AM CDT Gender Identity Not on file Sexual Orientation Not on file Last Filed Vital Signs Vital Sign Reading Time Taken Comments Blood Pressure 110/72 05/12/2018 1:11 PM CIRCULAR KNIFE MACHINE CUTTER Pulse 81 05/12/2018 1:11 PM CIRCULAR KNIFE MACHINE CUTTER Temperature 36.1 C (96.9 F) 05/12/2018 1:11 PM CIRCULAR KNIFE MACHINE CUTTER Respiratory Rate 16 05/12/2018 1:11 PM CIRCULAR KNIFE MACHINE CUTTER Oxygen Saturation 97% 05/12/2018 1:11 PM CIRCULAR KNIFE MACHINE CUTTER Inhaled Oxygen Concentration - - Weight 78.5 kg (173 lb) 05/12/2018 1:11 PM CIRCULAR KNIFE MACHINE CUTTER Height 162.6 cm (5' 4 ) 05/12/2018 1:11 PM CIRCULAR KNIFE MACHINE CUTTER Body Mass Index 29.7 05/12/2018 1:11 PM CIRCULAR KNIFE MACHINE CUTTER Plan of Treatment Health Maintenance Due Date Last Done Comments Hepatitis C Virus (HCV) Screening 1976 Hepatitis B Immunization (1 of 3 - 19+ 3-dose series) 09/20/1995 Colonoscopy 2021 Colorectal Cancer Screening 2021 Influenza Immunization (#1) 2023 SARS-COV-2 Immunization (2023- season) 2023 Respiratory Syncytial Virus (RSV) Immunization (Adult) (1 - 1-dose 75+ series) 09/20/2051 DTaP/Tdap/Td Immunization Discontinued 2014, 01/17/1991, 12/10/1981, Additional history exists TdaP Immunization Completed 01/23/2015 Meningococcal Immunization (ACWY) Aged Out No longer eligible based on patient's age to complete this topic Pneumococcal Immunization Combined Aged Out No longer eligible based on patient's age to complete this topic Rotavirus Immunization Aged Out No lo nger eligible based on patient's age to complete this topic Insurance MED[employer]ID [employer] Care Teams Historic Interpreter Relationship Specialty Start Date End Date Chan Goldstein MD [address] [place] [address] PCP - General Family Medicine 01/18/19
--- NOTE | 2024-08-31 15:38 | ED_ITS ---
HPI - General Adult General Chief complaint: Nausea/Vomiting/Diarrhea Stated complaint: vomiting Time Seen by Provider: 08/31/24 15:36 Source: patient Mode of arrival: other ( Natalio Parish COMMUNITY THEATER ACTOR 3 to 4 days of nausea vomiting vomiting in her office given some Zofran at 2:45 p.m. 203.6 lb 126/74 afebrile at 97.8 alert oriented x4 allergic to penicillin) History of Present Illness HPI narrative: 48-year-old white female history of hyperemesis cannabinoid syndrome complains of nausea vomiting sent by ambulance from nurse practitioner's office today after having nausea vomiting for the last 3-4 days. She was cold and clammy and hot but her temperature is 97.7° she is given Zofran at 2:45 p.m.. She has a little bit better she has only voided once today blood pressure at the office was 126/74 she is afebrile sat 98% on room air alert and oriented x4. she has had a fever of 102 at home. Nonproductive cough for past 3 or 4 days. She started throwing up today. Denies any diarrhea. Complains sweating diaphoresis denies any pain. Related Data Home Medications Medication Instructions Recorded Confirmed Last Taken Type sertraline 50 mg tablet 75 mg PO HS 05/07/19 01/27/24 Unknown History Lactobacillus 1 cap PO DAILY 12/29/22 01/27/24 Unknown History acidophilus-Bifidobac.animalis 2.5 billion cell capsule (Daily Probiotic) cholecalciferol (vitamin D3) 25 25 mcg PO DAILY 12/29/22 01/27/24 Unknown History mcg (1,000 unit) tablet (Vitamin D3) mirtazapine 15 mg tablet 15 mg PO HS 12/29/22 01/27/24 Unknown History Allergies Allergy/AdvReac Type Severity Reaction Status Date / Time hydrocodone AdvReac Mild nausea Verified 08/31/24 15:58 vomiting Penicillins AdvReac Redness of Verified 08/31/24 15:58 Skin PMFSH Past Medical History Medical History Colon cancer screening Depression Radius/ulna fracture Family History Family History Mother No problems noted. Father No problems noted. Social History Social History Years smoked: 1 Smoking status: Current every day smoker Tobacco type: e-cigarettes/vaping Additional smoking assessment comments: smoke cigarettes frequency amount unknown Alcohol intake: never Alcohol use details: denies alcohol use Substance use: current Substance use type: marijuana Other substance usage details: daily Last use: 01/27/24 1400 Do You Feel Safe in your Home?: Yes Lack of Transportation: No Lack of Food: Never True Current Housing: I Have Housing Concerned About Future Housing: No Difficulty Paying Gas/Electric Bills: No Difficulty Paying for Meds: YES Currently Unemployed: No Education: Associate Degree Difficulty w/ Childcare or Family Care: No Living arrangements: with family Gender identity (if verbalized by the patient): Female Spiritual care concerns: No Agree to blood products: Yes Course Vital Signs Vital signs: Vital Signs Temperature 36.2 C L 08/31/24 15:28 Pulse Rate 97 08/31/24 15:28 Respiratory Rate 20 08/31/24 15:28 Blood Pressure 164/109 H 08/31/24 15:28 Pulse Oximetry 96 08/31/24 15:28 Oxygen Delivery Room Air 08/31/24 15:28 Temperature 36.2 C L 08/31/24 15:28 Pulse Rate 97 08/31/24 15:28 Respiratory Rate 20 08/31/24 15:28 Blood Pressure 164/109 H 08/31/24 15:28 Pulse Oximetry 96 08/31/24 15:28 Oxygen Delivery Room Air 08/31/24 15:28 Medical Decision Making [facility] Narrative Medical decision making narrative: patient was brought by EMS placed in room 1 history physical was performed. IV was placed she was given a L of fluid labs were drawn. CBC unremarkable, chloride 109 bicarb 17 anion gap 17 BUN 19 creatinine 1.01 Osmo 303 lactic acid 2.5 AST 51 total protein 9 the rest of her CMP was normal. Lipase is normal . Chest x-ray showed no active disease evaluation was discussed with the patient and Bonnie Castañeda hospitalist nurse-practitioner but we would admit her to observation for continued fluids. Nurse practitioner Garry wanted her to have 5 mg IV push of Haldol which was given. Differential Diagnosis Differential Diagnosis: Electrolyte imbalance dehydration acute kidney injury hyperemesis cannabinoid syndrome Vital Signs Vital Signs: Vital Signs Temperature 36.2 C L 08/31/24 15:28 Pulse Rate 97 08/31/24 15:28 Respiratory Rate 20 08/31/24 15:28 Blood Pressure 164/109 H 08/31/24 15:28 Pulse Oximetry 96 08/31/24 15:28 Oxygen Delivery Room Air 08/31/24 15:28 Temperature 36.2 C L 08/31/24 15:28 Pulse Rate 97 08/31/24 15:28 Respiratory Rate 20 08/31/24 15:28 Blood Pressure 164/109 H 08/31/24 15:28 Pulse Oximetry 96 08/31/24 15:28 Oxygen Delivery Room Air 08/31/24 15:28 Lab Data 08/31/24 15:58 08/31/24 15:58 Labs: Lab Results 08/31/24 08/31/24 Range/Units 15:58 15:59 WBC 8.0 (4.8-10.8) K/mm3 RBC 5.44 H (4.20-5.40) M/mm3 Hgb 15.1 H (12.0-15.0) g/dL Hct 45.9 (35.0-49.0) % MCV 84.4 (78.0-102.0) fL MCH 27.8 (27.0-31.0) pg MCHC 32.9 (32-36) g/dL RDW 12.7 (11.6-14.4) % Plt Count 292 (150-420) K/mm3 MPV 10.1 (9.2-11.8) fl Sodium 143 (137-145) mmol/L Potassium 3.8 (3.4-5.0) mmol/L Chloride 109 H (98-107) mmol/L Carbon Dioxide 17 L (22-30) mmol/L Anion Gap 17 H (4-12) mmol/L BUN 19 H (7-17) mg/dL Creatinine 1.01 H (0.7-1.0) mg/dL Estim Creat Clear Calc 67 ml/min Estimated GFR 59 (59 - ) Glucose 183 H (65-110) mg/dL Calculated Osmolality 303 H (285-295) mOsm/kg Lactic Acid 2.5 H (0.4-2.0) mmol/L Calcium 9.4 (8.4-10.2) mg/dL Magnesium Pending Total Bilirubin 0.6 (0.2-1.3) mg/dL AST 51 H (14-36) U/L ALT 32 (6-35) U/L Alkaline Phosphatase 104 (38-126) U/L Total Protein 9.0 H (6.3-8.2) g/dL Albumin 5.0 (3.5-5.1) g/dL Lipase 95 (23-300) U/L Influenza A (RT-PCR) Pending Influenza B (RT-PCR) Pending RSV (RT-PCR) Pending SARS-CoV-2 RNA (RT-PCR) Pending Cancelled Group A Strep (PCR) Not detected (Negative) Discharge Plan Discharge Clinical Impression: Acute kidney injury, Cannabis abuse, Acute dehydration Nausea and vomiting Qualifiers: Vomiting type: unspecified Qualified Code(s): R11.2 - Nausea with vomiting, unspecified Patient Disposition: Still a Patient Condition: Stable Patient Language: Czech Prescriptions: No Action sertraline 50 mg tablet 75 mg PO HS losartan [Cozaar] 50 mg Tablet 50 mg PO DAILY Qty: 30 0RF ondansetron 8 mg tablet,disintegrating 8 mg PO Q8H PRN (Reason: nausea and vomiting) Qty: 30 0RF pantoprazole 40 mg tablet,delayed release (DR/EC) 40 mg PO QAM 28 Days Qty: 28 0RF prednisone 10 mg tablets,dose pack 10 mg PO DIRECTED Qty: 48 0RF Rx Instructions: see taper instructions mirtazapine 15 mg tablet 15 mg PO HS cholecalciferol (vitamin D3) [Vitamin D3] 25 mcg (1,000 unit) Tablet 25 mcg PO DAILY Daily Probiotic 2.5 billion cell Capsule 1 cap PO DAILY Follow-up/Referrals: Марина,Natalio Gates NP [Primary Care Provider] - Time of Disposition: 16:44
--- NOTE | 2024-08-31 15:42 | PC.NURSE ---
ERP at bedside for initial assessment.
[2024-08-31] MEDS: SODIUM CHLORIDE 0.9% IV 1,000 ML 999 ML IV CONT ×2 (16:03→16:04)
[2024-08-31] MEDS: ONDANSETRON INJ 4 MG/2 ML VIAL IV PUSH (16:04)
[2024-08-31 16:10] LABS: Hematocrit 45.9 % (35.0-49.0); Hemoglobin 15.1 g/dL (12.0-15.0); Mean Corpuscular HGB Conc 32.9 g/dL (32-36); Mean Corpuscular Hemoglobin 27.8 pg (27.0-31.0); Mean Corpuscular Volume 84.4 fL (78.0-102.0); Mean Platelet Volume 10.1 fl (9.2-11.8); Platelet Count Result 292 K/mm3 (150-420); Red Blood Count 5.44 M/mm3 (4.20-5.40); Red Cell Distribution Width 12.7 % (11.6-14.4)
[2024-08-31 16:18] LABS: Alanine Aminotransferase 32 U/L (6-35); Alkaline Phosphatase 104 U/L (38-126); Anion Gap 17 mmol/L (4-12); Aspartate Amino Transferase 51 U/L (14-36); Bilirubin,Total 0.6 mg/dL (0.2-1.3); Blood Urea Nitrogen 19 mg/dL (7-17); Calcium 9.4 mg/dL (8.4-10.2); Carbon Dioxide 17 mmol/L (22-30); Chloride 109 mmol/L (98-107); Estimated CRCL calculation 67 ml/min; Estimated Glomerular Filt Rate 59; Glucose 183 mg/dL (65-110); Lipase 95 U/L (23-300); Osmolality Calculated 303 mOsm/kg (285-295); Potassium 3.8 mmol/L (3.4-5.0); Sodium 143 mmol/L (137-145)
[2024-08-31 16:19] LABS: Lactic Acid Reflex 2.5 mmol/L (0.4-2.0)
--- OUTSIDE RECORDS SUMMARY | 2024-08-31 16:33 | XMS_ITS | Clinical Summary ---
Author Organization [facility] Address [facility] [place] [address] Care Team Providers Care Content Architect Name Role Phone Unavailable Primary Care Provider Unavailabl e Social History Tobacco Use Types Packs/Day Years Used Date Smoking Tobacco: Never Assessed Comments Unknown Sex and Gender Information Value Date Recorded Sex Assigned at Not on file Legal Sex Female 11:25 PM CONSULTING PRACTICE DIRECTOR Gender Identity Not on file Sexual Orientation Not on file Last Filed Vital Signs Vital Sign Reading Time Taken Comments Blood Pressure 118/72 06/12/2014 10:29 AM CONSULTING PRACTICE DIRECTOR Pulse 74 06/12/2014 10:29 AM CONSULTING PRACTICE DIRECTOR Temperature - - Respiratory Rate - - Oxygen Saturation - - Inhaled Oxygen Concentration - - Weight 84.4 kg (186 lb) 06/12/2014 10:29 AM CONSULTING PRACTICE DIRECTOR Height 162.6 cm (5' 4 ) 06/12/2014 10:29 AM CONSULTING PRACTICE DIRECTOR Body Mass Index 31.93 06/12/2014 10:29 AM CONSULTING PRACTICE DIRECTOR Plan of Treatment Health Maintenance Due Date Last Done Comments Cervical Cancer Screening Pa p Smear (Age 30 to 64) Every 3 Years 1976 Colorectal Cancer Screening Colonoscopy (10 Years) 1976 Annual Physical 09/20/1979 Hepatitis C 1994 DTaP, Tdap and Td Vaccines ( 1 - Tdap) 09/20/1995 Hepatitis B Vaccines (1 of 3 - 19+ 3-dose series) 09/20/1995 Cervical Cancer Screening Pa p with HPV Testing (Age 30 to 64) Every 5 Years 2006 Cervical Cancer Screening with HPV 2006 Mammogram Screening 2016 COVID-19 Vaccine (2023-2 5 season) 2023 Meningococcal B Vaccine Aged Out No l onger eligible based on patient's age to complete this topic Meningococcal Vaccine Aged Out No boo benito eligible based on patient's age to complete this topic Pneumococcal Vaccine: Pediat rics (0 to 5 Years) and At-Risk Patients (6 to 49 Years) Aged Out No longer eligible b ased on patient's age to complete this topic RSV Immunizations Under 20 Months Aged Out No longer eligible based on patient's age to complete this topic
--- OUTSIDE RECORDS SUMMARY | 2024-08-31 16:33 | XMS_ITS | Encounter Summary ---
Author Organization [facility] Address [facility] [place] [address] Care Team Providers Care Burner Tender Name Role Phone Unavailable Primary Care Provider Unavailabl e Encounter Details Date Type Department Care Team (Late st Contact Info) Description 09/23/2018 Abstract SFL CONVERSION [address] [place] [address] , Generic Conversion, Social History Tobacco Use Types Packs/Day Years Used Date Smoking Tobacco: Never Assessed Comments Unknown Sex and Gender Information Value Date Recorded Sex Assigned at Not on file Legal Sex Female 11:25 PM PHYTOPATHOLOGY TEACHER Gender Identity Not on file Sexual Orientation Not on file documented as of this encounter Plan of Treatment Not on file documented as of this encounter Visit Diagnoses Not on filedocumented in this encounter
[2024-08-31 16:34] LABS: Strep Group A RT-PCR NOT DETECTED (Negative)
--- OUTSIDE RECORDS SUMMARY | 2024-08-31 16:34 | XMS_ITS | Clinical Summary ---
Author Organization [facility] Address [address] [place] [address] Phone Care Team Providers Care Burring Machine Operator Name Role Phone Chan Goldstein MD Primary Care Provider [phone] Allergies Active Allergy Reactions Criticality Noted Date [...] Comments Blood Pressure 110/72 05/12/2018 1:11 PM DESIGN TRANSFERRER Pulse 81 05/12/2018 1:11 PM DESIGN TRANSFERRER Temperature 36.1 C (96.9 F) 05/12/2018 1:11 PM DESIGN TRANSFERRER Respiratory Rate 16 05/12/2018 1:11 PM DESIGN TRANSFERRER Oxygen Saturation 97% 05/12/2018 1:11 PM DESIGN TRANSFERRER Inhaled Oxygen Concentration - - Weight 78.5 kg (173 lb) 05/12/2018 1:11 PM DESIGN TRANSFERRER Height 162.6 cm (5' 4 ) 05/12/2018 1:11 PM DESIGN TRANSFERRER Body Mass Index 29.7 05/12/2018 1:11 PM DESIGN TRANSFERRER Plan of Treatment Health Maintenance Due Date [...] Insurance [employer] Care Teams Burring Machine Operator Relationship Specialty Start Date End Date Chan Goldstein MD [address] [place] [address] PCP - General Family Medicine 01/18/19
[2024-08-31 16:39] LABS: Magnesium 2.2 mg/dL (1.6-2.3)
[2024-08-31 16:47] LABS: Influenza A QL RT-PCR Negative (Negative); Influenza B QL RT-PCR Negative (Negative); RSV RNA, RT-PCR Negative (Negative); SARS-CoV-2 RNA PCR Positive (Negative)
[2024-08-31] MEDS: HALOPERIDOL LACTATE 5 MG/ML VIAL IV PUSH (16:49)
--- NOTE | 2024-08-31 16:54 | PC.NURSE ---
Patients IV infiltrated with NS flowing before pushing haloperidol through. IV removed, new IV established
--- NOTE | 2024-08-31 17:24 | ADMGEN ---
This patient, Amelia Burkett, was admitted to 2nd Floor Room 210-1. Patient/family oriented to hospital policies and general routines including ID bracelet, bed and alarms, visiting hours, pain management, procedures, bathroom and other care routines, personal items, smoking policy, room service/diet, and visiting hours. Information on how to activate the Rapid Response Team has been discussed. Patient/Family are encouraged to report perceived risks to care and to ask questions if they do not understand what they are told or what they should do.
[2024-08-31 18:04] LABS: Reflex Lactic Acid Yes or No Add Lactic
[2024-08-31] MEDS: SODIUM CHLORIDE 0.9% IV 1,000 ML 100 ML IV CONT (20:43)
[2024-08-31] MEDS: METOCLOPRAMIDE HCL INJ 10 MG/2 ML VIAL IV PUSH (20:43)
[2024-08-31 21:06] LABS: Lactic Acid 0.9 mmol/L (0.7-2.0)
[2024-09-01] VITALS: BP 160/83; PULSE 83; RESP 16; TEMP 36.6; O2SAT 95
[2024-09-01] MEDS: METOCLOPRAMIDE HCL INJ 10 MG/2 ML VIAL IV PUSH (06:20)
[2024-09-01] MEDS: SODIUM CHLORIDE 0.9% IV 1,000 ML 100 ML IV CONT (06:21)
[2024-09-01 08:00] VITALS: BP 181/109; PULSE 95; RESP 14; TEMP 36.6; O2SAT 92
--- NOTE | 2024-09-01 10:53 | P.SS_ITS ---
Same Day Admit/Disch: HPI History of Present Illness Chief complaint: vomiting Narrative: Amelia Burkett is a 48 year old female HPI - General Adult General Chief complaint: Nausea/Vomiting/Diarrhea Stated complaint: vomiting Time Seen by Provider: 08/31/24 15:36 Source: patient Mode of arrival: other ( Natal[facility] [employer] 3 to 4 days of nausea vomiting vomiting in her office given some Zofran at 2:45 p.m. 203.6 lb 126/74 afebrile at 97.8 alert oriented x4 allergic to penicillin) History of Present Illness HPI narrative: 48-year-old white female history of hyperemesis cannabinoid syndrome complains of nausea vomiting sent by ambulance from nurse practitioner's office today after having nausea vomiting for the last 3-4 days. She was cold and clammy and hot but her temperature is 97.7° she is given Zofran at 2:45 p.m.. She has a little bit better she has only voided once today blood pressure at the office was 126/74 she is afebrile sat 98% on room air alert and oriented x4. she has had a fever of 102 at home. Nonproductive cough for past 3 or 4 days. She started throwing up today. Denies any diarrhea. Complains sweating diaphoresis denies any pain. [facility] Past Medical History Medical History Colon cancer screening Radius/ulna fracture Depression Family History Family History Mother No problems noted. Father No problems noted. Social History Social History Years smoked: 1 Smoking status: Never smoker Tobacco type: e-cigarettes/vaping Additional smoking assessment comments: smoke cigarettes frequency amount unknown Alcohol intake: never Alcohol use details: denies alcohol use Substance use: never Substance use type: marijuana Other substance usage details: daily Last use: 01/27/24 1400 Do You Feel Safe in your Home?: Yes Lack of Transportation: No Lack of Food: Never True Current Housing: I Have Housing Concerned About Future Housing: No Difficulty Paying Gas/Electric Bills: No Difficulty Paying for Meds: No Currently Unemployed: No Education: Associate Degree Difficulty w/ Childcare or Family Care: No Living arrangements: with family Gender identity (if verbalized by the patient): Female Spiritual care concerns: No Agree to blood products: Yes Same Day Admit/Disch: Med Pre-admit Medications Home Medications Medication Instructions Recorded Confirmed Type sertraline 50 mg tablet 75 mg PO HS 05/07/19 08/31/24 History mirtazapine 15 mg tablet 15 mg PO HS PRN sleep 12/29/22 08/31/24 History amlodipine 5 mg tablet 5 mg PO DAILY 08/31/24 08/31/24 History atorvastatin 40 mg tablet 40 mg PO DAILY 08/31/24 08/31/24 History gabapentin 100 mg capsule 100 mg PO BID 08/31/24 08/31/24 History gabapentin 100 mg capsule 300 mg PO HS 08/31/24 08/31/24 History meloxicam 15 mg tablet 15 mg PO DAILY 08/31/24 08/31/24 History promethazine 25 mg tablet 25 mg PO Q6H PRN nausea and 08/31/24 08/31/24 History vomiting sertraline 100 mg tablet 200 mg PO QHS 08/31/24 08/31/24 History albuterol sulfate 90 mcg/actuation 2 puff inhalation QID PRN 09/01/24 Rx aerosol inhaler (Ventolin HFA) shortness of breath or wheezing #6.7 grams amlodipine 5 mg tablet (Norvasc) 10 mg (2 x 5 mg) PO DAILY #30 tabs 09/01/24 Rx ondansetron HCl 4 mg tablet 4 mg PO Q8H PRN nausea and 09/01/24 Rx vomiting #10 tabs Review of Systems Review of Systems not feeling well All systems reviewed & are unremarkable except as noted in HPI and below Exam Const: General: cooperative, healthy appearing, comfortable and no acute distress HENMT: Head: normal to inspection Face and sinus: normal facial exam and sinuses nontender Mouth: Yes Normal oral and palatal mucosa present Eyes: General: appearance normal, both eyes and all related structures Neck: Neck: normal visual inspection and full ROM Chest: Chest palpation & inspection: normal inspection of the chest and normal palpation of entire chest wall Cardio: Jugular venous distension: no JVD GI: Inspection: normal to inspection Back/Spine/Pelvis: Back: no CVA tenderness Cervical Spine: other (chronic neck pain ) Skin: General skin exam: normal color and no rashes or lesions noted Neuro: General: oriented to person, oriented to place, oriented to time and patient oriented x3 Extrem: General: normal to inspection, full ROM and capillary refill normal Psych: Appearance: grossly normal and well kempt DS: Data Data Completed and Pending Labs on day of discharge: Labs from last 24 hours 08/31/24 08/31/24 08/31/24 20:05 15:59 15:58 WBC 8.0 RBC 5.44 H Hgb 15.1 H Hct 45.9 MCV 84.4 MCH 27.8 MCHC 32.9 RDW 12.7 Plt Count 292 MPV 10.1 Sodium 143 Potassium 3.8 Chloride 109 H Carbon Dioxide 17 L Anion Gap 17 H BUN 19 H Creatinine 1.01 H Estim Creat Clear Calc 67 Estimated GFR 59 Glucose 183 H Calculated Osmolality 303 H Lactic Acid 0.9 2.5 H Calcium 9.4 Magnesium 2.2 Total Bilirubin 0.6 AST 51 H ALT 32 Alkaline Phosphatase 104 Total Protein 9.0 H Albumin 5.0 Lipase 95 Influenza A (RT-PCR) Negative Influenza B (RT-PCR) Negative RSV (RT-PCR) Negative SARS-CoV-2 RNA (RT-PCR) Cancelled Positive A Group A Strep (PCR) Not detected DS: Summary Hospital Course Reason for hospitalization: Covid , Hyperemesis , hypertension Hospital Course: Patient was given IVF while here and Haldol for the emesis in the emergency room. Since being inpatient she has received IV fluids and she has had no nausea and or vomiting . Patient has had no shortness of breath just feeling tired. Patient blood pressure has been high her blood pressure medication has been increased and she will need to follow up with her primary care provider . I did order the increase dosage and she will need ensure that she wears a mask due to her covid diagnosis Patient is eating and drinking without difficulties and she is ambulating in the room . Patient educated on wearing a mask around people for the next few days. I educated patient on hypertension being the silent killer and the risk of not taking medication Time Spent with Patient Time attestation: Total time spent providing and/or coordinating discharge services: DS: Admitting Diagnosis Discharge Date 09/01/2024 Admitting Diagnosis Hyperemesis COVID Dehydration DS: Discharge Diagnosis Discharge Diagnosis (1) Acute dehydration: Code(s): E86.0 - Dehydration Status: Acute Assessment and Plan: IV fluids given (2) Cannabis abuse: Code(s): F12.10 - Cannabis abuse, uncomplicated Status: Acute (3) Nausea and vomiting: Qualifiers: Vomiting type: unspecified Qualified Code(s): R11.2 - Nausea with vomiting, unspecified Code(s): R11.2 - Nausea with vomiting, unspecified Status: Acute Assessment and Plan: Zofran ordered for nausea (4) COVID-19: Code(s): U07.1 - COVID-19 Status: Acute Assessment and Plan: inhaler to be ordered for SOB (5) Hypertensive urgency: Code(s): I16.0 - Hypertensive urgency Status: Acute Assessment and Plan: changed Norvasc from 5mg to 10 mg and ordered to pharmacy Eplained the need to continue this medication daily as Hypertension is a silent killer Discharge Plan Discharge Attending physician on discharge: César Urena Discharging Clinician: Ray Castillo Anticipated Discharge Date/Time: 09/01/24 10:59 Patient Disposition: Home Activity: august shower Diet: heart healthy Wound Care Instructions: follow printed instructions Patient Instructions: Antibiotic Form, Chronic Hypertension (DC), COVID-19 (Coronavirus Disease 2019) (DC) Patient Language: French Stand Alone Forms: General Discharge Information, Work/School Release IP Follow-up/Referrals: Марина,Natalio Gates [employer] [Primary Care Provider] - Discharge Medications: New amlodipine [Norvasc] 5 mg Tablet 10 mg PO DAILY Qty: 30 2RF ondansetron HCl 4 mg tablet 4 mg PO Q8H PRN (Reason: nausea and vomiting) Qty: 10 0RF albuterol sulfate [Ventolin HFA] 90 mcg/actuation HFA aerosol inhaler 2 puff inhalation QID PRN (Reason: shortness of breath or wheezing) Qty: 6.7 0RF atorvastatin 40 mg Tablet 40 mg PO DAILY Qty: 30 0RF Continued gabapentin 100 mg capsule 100 mg PO BID Rx Instructions: 100 mg p.o. AM and afternoon 300 mg p.o. HS gabapentin 100 mg capsule 300 mg PO HS promethazine 25 mg tablet 25 mg PO Q6H PRN (Reason: nausea and vomiting) sertraline 100 mg tablet 200 mg PO QHS meloxicam 15 mg tablet 15 mg PO DAILY atorvastatin 40 mg tablet 40 mg PO DAILY mirtazapine 15 mg tablet 15 mg PO HS PRN (Reason: sleep) Discontinued sertraline 50 mg tablet 75 mg PO HS amlodipine 5 mg tablet 5 mg PO DAILY Date of admission: 08/31/24 16:45 Primary Care Provider: Марина,Natalio Gates Admitting Provider: César Urena Attending physician on admission: César Urena Condition: Stable
[2024-09-01] MEDS: amLODIPine BESYLATE 5 MG TABLET 10 MG PO (11:16)
[2024-09-01 12:00] VITALS: BP 164/92; PULSE 92; RESP 14; TEMP 36.6; O2SAT 95
--- NOTE | 2024-09-03 10:12 | PC.NURSE ---
Discharge call back attempt made, unable to leave message.
--- NOTE | 2024-09-04 10:22 | PC.NURSE ---
Second attempt for Discharge Call Back. Unable to leave message.
--- NOTE | 2024-09-07 12:23 | PC.NURSE ---
Spoke with Mother of Amelia who asked what visit are you talking about? informed it was from her hospital stay, that this was the 3rd attempt to get to speak with her for discharge call back. Mother informs Amelia was just seen in ED again since discharge and now is getting xrays of her abdomen from her primary at [facility]. Encouraged mother to have Amelia to follow up with primary care and if needed she could utilize the ED.
== END 2024-09-01 15:00 | disposition home or self-care (01) ==
LOC: CHSED 16:44 → CHS2ND 16:51
PROVIDERS: Admitting Provider Internal Medicine; Emergency Provider Emergency Medicine; PCP Nurse Practitioner Family; Visit Provider Internal Medicine
DX: U07.1 COVID-19 (principal); N17.9 Acute kidney failure, unspecified; E86.0 Dehydration; R11.2 Nausea with vomiting, unspecified; F12.10 Cannabis abuse, uncomplicated; I16.0 Hypertensive urgency; I10 Essential (primary) hypertension; F17.290 Nicotine dependence, other tobacco product, uncomplicated; Z79.899 Other long term (current) drug therapy; Z88.0 Allergy status to penicillin
CPT/HCPCS: 36415; 71045; 80053; 83605; 83690; 83735; 85027; 87040; 87637; 87651; 96361; 96374; 96375; 99285; A9270; G0378; J1630; J2405; J2765; J7030

== ENCOUNTER 2024-09-04 09:51 | Emergency (ER) | payer SELFPAY ==
[2024-09-04 09:51] VITALS: BP 173/108; PULSE 90; RESP 18; TEMP 36.7; O2SAT 93
[2024-09-04 10:00] VITALS: BP 162/106; PULSE 81; RESP 16; O2SAT 98
--- OUTSIDE RECORDS SUMMARY | 2024-09-04 10:03 | XMS_ITS | Encounter Summary ---
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 Phone Unavailable Primary Care Provider Unavailabl e Encounter Details Date Type Department Care Team (Late st Contact Info) Description 09/23/2018 Abstract [facility] CONVERSION [address] [place] [address] , Generic Conversion, Social History Tobacco Use Types Packs/Day Years Used Date Smoking Tobacco: Never Assessed Comments Unknown Sex and Gender Information Value Date Recorded Sex Assigned at Not on file Legal Sex Female 11:25 PM [employer] Gender Identity Not on file Sexual Orientation Not on file documented as of this encounter Plan of Treatment Not on file documented as of this encounter Visit Diagnoses Not on filedocumented in this encounter
--- OUTSIDE RECORDS SUMMARY | 2024-09-04 10:03 | XMS_ITS | Data Portability ---
Author Organization [facility] [place] Address [address] [place] [address] Assessment Encounter Date Assessment Date Assessment LastModified by Organization Details LastModified Time 04/20/2022 04/20/2022 Annual gynecological exam performed. Patient will come back in a year unless there are new symptoms. [email or web address] Not available 04/20/2022 11:56:25 07/26/2023 07/26/2023 Annual [...] Lab CBC w/ auto diff 2024 025 [facility] (Lab), [address], [place], [address], 5 03:14:04 CMP, serum or plasma 2024 025 [facility] (Lab), [address], [place], [address], 5 03:14:05 lipid panel, blood 2024 025 [facility] (Lab), [address], [place], [address], 5 03:14:05 TSH, serum or plasma 2024 025 [facility] (Lab), [address], [place], [address], 5 03:14:05 25-hydroxy vitamin D2 + 25-hydroxy vitamin D3, QN, serum or plasma 2024 025 [facility] (Lab), [address], [place], [address], 5 03:14:06 Referral None recorded. Procedures None recorded. Surgeries None recorded. Imaging MAMMO, screening, digital, bilateral 2023 024 [facility], [address], [place], [address], 5 05:01:13 MAMMO, screening, digital, bilateral 2022 023 [email or web address] 1 [facility], [address], [place], [address], 4 15:29:55 Medication Orders None recorded. Patient [...] as clini ernesto luz nted. Not Available [facility] (Lab) [address], [place], [address], 09/02/2020 16:35:31 04/20/19 23 04/20/2022 IMAGE GUIDE [...] Elect abbie hammond ernesto d by Zack Almonte am, CT on 023 at 6:15 AM [...] as clini ernesto luz nted. Not Available [facility] (Lab) [address], [place], [address], 04/22/2022 07:18:22 07/20/19 25 07/19/2024 CBC W/DIF F WBC 9.4 10'3/ uL 3.5-10 .5 Not Available [facility] (Lab) [address], [place], [address], 07/20/2024 03:13:59 07/20/19 25 07/19/2024 CBC W/DIF F RBC 4.29 10'6/ uL (based on docume nted legal sex) 3.80-5 .20 Not Available [facility] (Lab) [address], [place], [address], 07/20/2024 03:13:59 07/20/1907/19/2024 CBC W/DIF F HGB 12.3 g/dL (based on docume nted legal sex) 11.6-1 5.4 Not Available [facility] (Lab) [address], [place], [address], 07/20/2024 03:13:59 07/20/19 25 07/19/2024 CBC W/DIF F HCT 37.1 % (based on docume nted legal sex) 34.0-4 5.0 Not Available [facility] (Lab) [address], [place], [address], 07/20/2024 03:13:59 07/20/19 25 07/19/2024 CBC W/DIF F MCV 86.5 fL 80.0-9 9.0 Not Available [facility] (Lab) [address], [place], [address], 07/20/2024 03:13:59 07/20/1907/19/2024 CBC W/DIF F MCH 28.7 pg 27.0-3 4.0 Not Available [facility] (Lab) [address] [place], [address], 07/20/2024 03:13:59 07/20/19 25 07/19/2024 CBC W/DIF F MCHC 33.2 g/dL 32.0-3 5.5 Not Available [facility] (Lab) [address] [place], [address], 07/20/2024 03:13:59 07/20/19 25 07/19/2024 CBC W/DIF F RDW 12.6 % 11.0-1 5.0 Not Available [facility] (Lab) [address], [place], [address], 07/20/2024 03:13:59 07/20/1907/19/2024 CBC W/DIF F plt 335 10'3/ uL 150-40 0 Not Available [facility] (Lab) [address], [place], [address], 07/20/2024 03:13:59 07/20/19 25 07/19/2024 CBC W/DIF F MPV 10.4 fL 8.8-12 .1 Not Available [facility] (Lab) [address], [place], [address], 07/20/2024 03:13:59 07/20/19 25 07/19/2024 CBC W/DIF F neutrophils 66.0 % 34.0-7 3.0 Not Available [facility] (Lab) [address], [place], [address], 07/20/2024 03:13:59 07/20/19 25 07/19/2024 CBC W/DIF F lymphocytes 26.0 % 15.0-5 0.0 Not Available [facility] (Lab) [address], [place], [address], 07/20/2024 03:13:59 07/20/19 25 07/19/2024 CBC W/DIF F monocytes 5.7 % 1.0-15 .0 Not Available [facility] (Lab) [address], [place], [address], 07/20/2024 03:13:59 07/20/19 25 07/19/2024 CBC W/DIF F eosinophils 1.5 % 0.0-8. 0 Not Available [facility] (Lab) [address], [place], [address], 07/20/2024 03:13:59 07/20/19 25 07/19/2024 CBC W/DIF F basophils 0.6 % 0.0-2. 0 Not Available [facility] (Lab) [address], [place], [address], 07/20/2024 03:13:59 07/20/1907/19/2024 CBC W/DIF F immature granulocytes 0.2 % no define d refere nce range Immat ure Granu locyt es (IG) repre sents autom ated enume ratio n of Metam yeloc ytes, Myelo cytes and Promy elocy livia when IG is < 5%. Blast s are not inclu ded in IG and repor eder separ ately if prese nt. Not Available [facility] (Lab) [address], [place], [address], 07/20/2024 03:13:59 07/20/19 25 07/19/2024 CBC W/DIF F absolute neutrophils 6.2 10'3/ uL 1.5-8. 0 Not Available [facility] (Lab) [address], [place], [address], 07/20/2024 03:13:59 07/20/19 25 07/19/2024 CBC W/DIF F absolute lymphocytes 2.4 10'3/ uL 1.0-4. 0 Not Available [facility] (Lab) [address], [place], [address], 07/20/2024 03:13:59 07/20/19 25 07/19/2024 CBC W/DIF F absolute monocytes 0.5 10'3/ uL 0.2-1. 0 Not Available [facility] (Lab) [address], [place], [address], 07/20/2024 03:13:59 07/20/19 25 07/19/2024 CBC W/DIF F absolute eosinophils 0.1 10'3/ uL 0.0-0. 6 Not Available [facility] (Lab) [address], [place], [address], 07/20/2024 03:13:59 07/20/19 25 07/19/2024 CBC W/DIF F absolute basophils 0.1 10'3/ uL 0.0-0. 3 Not Available [facility] (Lab) [address], [place], [address], 07/20/2024 03:13:59 07/20/1907/19/2024 CBC W/DIF F absolute [...] glover book. nm.or g/gen derx Not Available [facility] (Lab) [address], [place], [address], 07/20/2024 03:13:59 07/20/1907/19/2024 LIPID PANEL ,AMA (LDL- CALC) total cholesterol 161 mg/dL 0-[address] [facility] (Lab) [address] [place], [address], 07/20/2024 03:14:05 07/20/1907/19/2024 LIPID PANEL ,AMA (LDL- CALC) triglyceride s 211 mg/dL 0-150 high NCEP Refer ence Value s for Trigl yceri addi: Sharron l: <150 mg/dL Borde rline High: 150 - 199 mg/dL High: 200 - 499 mg/dL Very High: >/= 500 mg/dL Not Available [facility] (Lab) [address] [place], [address], 07/20/2024 03:14:05 07/20/1907/19/2024 LIPID PANEL ,AMA (LDL- CALC) HDL cholesterol 50 mg/dL >[address] [facility] (Lab) [address] [place], [address], 07/20/2024 03:14:05 07/20/1907/19/2024 LIPID PANEL ,AMA (LDL- [...] mg/dL , HDL <40 mg/dL Not Available [facility] (Lab) [address], [place], [address], 07/20/2024 03:14:05 07/20/1907/19/2024 LIPID PANEL ,AMA (LDL- CALC) non-HDL cholesterol 111 mg/dL no refere nce range A reaso nable goal for non-H DL maricarmen stero l is one that is 30 mg/dL highe r than the LDL maricarmen stero l goal. Not Available [facility] (Lab) [address], [place], [address], 07/20/2024 03:14:05 07/20/1907/19/2024 LIPID PANEL ,AMA (LDL- CALC) chol/HDL ratio 3.2 . 0.0-5. 0 On August 10, 2022, [email or web address]] labor atori arleen terry ed the equat [...] Karen sullivan, Freddie Arevalo, Freddie tinajero, [facility] , and Yohannes Siddiqui . 2013. [...] Kat malave R, Mckenna pitt E, [facility] RS, Artur SR, Radha pedersen SS. Fast ing Versu s Nonfa sting and Low-D ensit y Lipop rotei n Maricarmen stero l Accur acy. Circu latio n. 2017Apr 19;137 (1):1 0-19. Not Available [facility] (Lab) [address] [place], [address], 07/20/2024 03:14:05 07/20/19 25 07/19/2024 CMP(C OMPRE HENSI VE METAB OLIC PANEL ) sodium 138 mmol/ L 133-14 6 Not Available [facility] (Lab) [address] [place], [address], 07/20/2024 03:14:05 07/20/19 25 07/19/2024 CMP(C OMPRE HENSI VE METAB OLIC PANEL ) potassium 3.9 mmol/ L 3.5-5. 1 Not Available [facility] (Lab) [address] [place], [address], 07/20/2024 03:14:05 07/20/19 25 07/19/2024 CMP(C OMPRE HENSI VE METAB OLIC PANEL ) chloride 100 mmol/ L 98-107 Not Available [facility] (Lab) [address] [place], [address], 07/20/2024 03:14:05 07/20/19 25 07/19/2024 CMP(C OMPRE HENSI VE METAB OLIC PANEL ) carbon dioxide 31 mmol/ L 21-31 Not Available [facility] (Lab) [address], [place], [address], 07/20/2024 03:14:05 07/20/1907/19/2024 CMP(C OMPRE HENSI VE METAB OLIC PANEL ) anion gap 7 mmol/ L 4-13 Not Available [facility] (Lab) [address], [place], [address], 07/20/2024 03:14:05 07/20/1907/19/2024 CMP(C OMPRE HENSI VE METAB OLIC PANEL ) blood urea nitrogen 18 mg/dL 7-[address] [facility] (Lab) [address], [place], [address], 07/20/2024 03:14:05 07/20/19 25 07/19/2024 CMP(C OMPRE HENSI VE METAB OLIC PANEL ) creatinine 1.00 mg/dL 0.60-1 .30 Not Available [facility] (Lab) [address], [place], [address], 07/20/2024 03:14:05 07/20/1907/19/2024 CMP(C OMPRE HENSI VE METAB OLIC PANEL ) egfrcr (CKD-epi 2020) 70 mL/mi n/1.7 3_m2 >=60 Not Available [facility] (Lab) [address], [place], [address], 07/20/2024 03:14:05 07/20/19 25 07/19/2024 CMP(C OMPRE HENSI VE METAB OLIC PANEL ) calcium 9.5 mg/dL 8.3-10 .5 Not Available [facility] (Lab) [address], [place], [address], 07/20/2024 03:14:05 07/20/19 25 07/19/2024 CMP(C OMPRE HENSI VE METAB OLIC PANEL ) glucose 96 mg/dL 70-100 Not Available [facility] (Lab) [address], [place], [address], 07/20/2024 03:14:05 07/20/19 25 07/19/2024 CMP(C OMPRE HENSI VE METAB OLIC PANEL ) protein, total 7.2 g/dL 6.4-8. 3 Not Available [facility] (Lab) [address], [place], [address], 07/20/2024 03:14:05 07/20/19 25 07/19/2024 CMP(C OMPRE HENSI VE METAB OLIC PANEL ) albumin 4.5 g/dL 3.5-5. 0 Not Available [facility] (Lab) [address] [place], [address], 07/20/2024 03:14:05 07/20/19 25 07/19/2024 CMP(C OMPRE HENSI VE METAB OLIC PANEL ) ALT 13 units /L 9-43 Not Available [facility] (Lab) [address] [place], [address], 07/20/2024 03:14:05 07/20/19 25 07/19/2024 CMP(C OMPRE HENSI VE METAB OLIC PANEL ) alkaline phosphatase 79 units /L 34-104 Not Available [facility] (Lab) [address] [place], [address], 07/20/2024 03:14:05 07/20/19 25 07/19/2024 CMP(C OMPRE HENSI VE METAB OLIC PANEL ) AST 14 units /L 13-39 Not Available [facility] (Lab) [address] [place], [address], 07/20/2024 03:14:05 07/20/19 25 07/19/2024 CMP(C OMPRE HENSI VE METAB OLIC PANEL ) bilirubin, total 0.4 mg/dL 0.2-1. 2 Not Available [facility] (Lab) [address] [place], [address], 07/20/2024 03:14:05 07/20/19 25 07/19/2024 TSH, REFLE X FREE T4 TSH 1.88 uIU/m L 0.30-5 .33 Not Available [facility] (Lab) [address], [place], [address], 07/20/2024 03:14:05 07/20/19 25 07/19/2024 VITAM IN D, 25-OH (TOTA L D2/D3 ) vitamin D, 25-hydroxy, total 25.2 NG/mL 30.0-1 00.0 low Sugge stive of Defic iency : <20 ng/mL Sugge stive of Insuf ficie ncy: 20-29 ng/mL Sugge stive of Suffi cienc y: 30-10 0 ng/mL Sugge stive of Toxic ity: >150 ng/mL Not Available [facility] (Lab) [address], [place], [address], 07/20/2024 03:14:06 Result Notes None recorded. Problems Name Problem SNOMED Code Status Onset Date Resolution Date Notes Provider Name and Address Organization Details Recorded Time Pelvic and perineal pain 911313965 Completed 201908/29/2020 Pelvic and perineal pain;Pra ctice ID: [id number] [facility] 11:13:46 Acute vaginiti s [id number] Completed 201708/29/2020 Acute vulvovag initis;R ecorded Elsewher e: No [facility] S ource: EHR Claim Benefit Specialist vielka: N Practi ce ID: 0001 Gildardo lable Time: 02:15:00 PM [facility] 11:13:30 Clinical finding Completed 201608/29/2020 Presence of (intraut erine) contrace ptive device;R ecorded Elsewher e: No Locat ion: [facility] S ource: EHR Claim Benefit Specialist vielka: George Gibbs ce ID: 0001 Gildardo lable Time: 03:00:00 PM Ally Carter [facility] 11:13:[address] Concept Completed 201708/29/2020 Well woman check w/o abnormal finding; Recorded Elsewher e: No Locat ion: [facility] S ource: EHR Claim Benefit Specialist vielka: George Gibbs ce ID: 0001 Gildardo lable Time: 02:15:00 PM Ally Carter [facility] 11:13:51 Finding of pattern of menstrua l cycle Completed 201608/29/2020 Other specifie d irregula r menstrua tion;Rec orded Elsewher e: No Locat ion: [facility] George Gibbs ce ID: 0001 Gildardo lable Time: 12:00:00 PM Ally Carter [facility] 11:13:27 Contrace ptive sheath status [id number] Completed 201608/29/2020 Encounte r for routine checking of IUD;Ronal rded Elsewher e: No Locat ion: [facility]: George Gibbs ce ID: 0001 Gildardo lable Time: 01:45:00 PM [facility] 11:13:29 Insertio n of intraute rine contrace ptive device Completed 201608/29/2020 Encounte r for insertio n of intraute rine contrace ptive device;R ecorded Elsewher e: No Locat ion: [facility] S ource: EHR Claim Benefit Specialist vielka: N Practi ce ID: 0001 Gildardo lable Time: 03:00:00 PM [facility] 11:13:54 Finding of pattern of menstrua l cycle [id number] Completed 201608/29/2020 Excessiv e and frequent menstrua tion with irregula r cycle;Re corded Elsewher e: No Locat ion: [facility] S ource: EHR Claim Benefit Specialist vielka: N Rjti ce ID: 0001 Gildardo lable Time: 11:30:00 AM Ally butts, [facility] 11:13:[address] Concept Completed 201708/29/2020 Encntr for general adult medical exam w/o abnormal findings ;Recorde d Elsewher e: No Locat ion: [facility]: N Rjti ce ID: 0001 Gildardo lable Time: 02:15:00 PM Ally butts, [facility] 11:13:50 Pregnanc y test negative [id number] Completed 201608/29/2020 Encounte r for pregnanc y test, result negative ;Recorde d Elsewher e: No Locat ion: [facility]: N Rjti ce ID: 0001 Gildardo lable Time: 03:00:00 PM Ally butts, [facility] 11:13:32 Clinical finding Completed 201908/29/2020 Other specifie d disorder s of breast;R ecorded Elsewher e: No Locat ion: [facility] S ource: EHR Claim Benefit Specialist vielka: N Rjti ce ID: 0001 Gildardo lable Time: 04:30:00 PM [facility] butts, [facility] 11:13:14 Disorder of intraute rine contrace ptive device Completed 201608/29/2020 [facility] compl of intraute rine contrace ptive device, init encntr;R ecorded Elsewher e: No Locat ion: [facility] S ource: EHR Claim Benefit Specialist vielka: N Rjti ce ID: 0001 Gildardo lable Time: 11:15:00 AM Ally Carter [facility] 1 11:13:48 Cyst of ovary Completed 201608/29/2020 Unspecif ied ovarian cyst, unspecif ied side;Rec orded Elsewher e: No Locat ion: [facility] S ource: EHR Claim Benefit Specialist vielka: N Practi ce ID: 0001 Gildardo lable Time: 12:00:00 [facility] 11:13:16 Problem Notes None recorded. Procedures Surgical History Date Name Laterality Status Provider Name and Address Organization Details Recorded Time 07/26/19 24 Date of Last Pap Smear completed [facility] 07/19/2024 16:55:24 04/18/19 24 Date of Last Colonoscopy completed [facility] 07/19/2024 16:56:22 06/23/19 17 endometrial biopsy completed [facility] 04/20/2022 09:54:16 04/18/19 12 open reduction of fracture of radius completed [facility] 04/20/2022 09:55:26 04/18/19 06 Hand tendon reconstruction completed [facility] 04/20/2022 11:59:54 Imaging Results None recorded. Procedure Notes None recorded. Medical Equipment None Reported. Allergies Allergen ID Allergen Name Allergen Category Reaction Reaction Severity Criticality Documentation Date Start Date Code Code System Note Provider Name and Address Organization Details Recorded Time 60500 Product containin g penicilli n (product) medicatio n rash Not available Not available 04/04/2020 29747 2996 SNOMED Ally butts, [facility] 1 11:13:03 53306 hydrocodo ne Not available Not available Not available Not available 09/01/2020 5489 RxNorm Ally butts, [facility] 12:16:09 Medications Name Sig Start Date [...] Prescrib ed Elsewher e: No Locat ion: [facility] M odify By: ha Malave ncountbella [...] Updated DateTime 09/01/2020 165.1 cm 33.6 kg/m2 92101.66 g 134 mm[Hg] 87 mm[Hg] Ally Carter [facility] 1 12:16:02 Date Recorded Body height Body mass index (BMI) Body weight Systolic blood pressure Diastolic blood pressure Provider Name and Address Organization Details Last Updated DateTime 06/03/2021 165.1 cm 35.1 kg/m2 56040.99 g 137 mm[Hg] 82 mm[Hg] Ally Carter [facility] 2 10:25:36 Date Recorded Body height Body mass index (BMI) Body weight Systolic blood pressure Diastolic blood pressure Provider Name and Address Organization Details Last Updated DateTime 04/20/2022 165.1 cm 32.6 kg/m2 60065.1 g 120 mm[Hg] 82 mm[Hg] Saida Echols [facility] 3 11:56:48 Date Recorded Body height Body mass index (BMI) Body weight Systolic blood pressure Diastolic blood pressure Provider Name and Address Organization Details Last Updated DateTime 07/26/2023 165.1 cm 35.6 kg/m2 85791.77 g 119 mm[Hg] 77 mm[Hg] Sharon Joel [facility] 4 12:00:38 Date Recorded Body height Body mass index (BMI) Body weight Systolic blood pressure Diastolic blood pressure Provider Name and Address Organization Details Last Updated DateTime 07/19/2024 165.1 cm 34.9 kg/m2 56818.4 g 144 mm[Hg] 87 mm[Hg] Melina Kwon [facility] 5 16:53:15 Social History Question Answer Notes LastModified by Organizat ion Details LastModified Time Tobacco Smoking Status Never Smoker Ally Raul butts [facility] 08/29/2020 11:40:35 Are You Blind Or Do You Have Difficulty Seeing? No [email or web address] Information n ot available 04/20/2022 What Is Your Level Of Caffeine Consumption? Occasional [email or web address] Information not available 04/20/2022 In The 14 Days Before Symptom Onset, Have You Had Close Contact With A Laboratory-confirm ed COVID-19 While That Case Was Ill? 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 Role Phone Chan Goldstein MD Primary Care Provider [phone] Allergies Active Allergy Reactions Criticality Noted Date [...] Comments Blood Pressure 110/72 05/12/2018 1:11 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 Pulse 81 05/12/2018 1:11 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 Temperature 36.1 C (96.9 F) 05/12/2018 1:11 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 Respiratory Rate 16 05/12/2018 1:11 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 Oxygen Saturation 97% 05/12/2018 1:11 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 Inhaled Oxygen Concentration - - Weight 78.5 kg (173 lb) 05/12/2018 1:11 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 Height 162.6 cm (5' 4 ) 05/12/2018 1:11 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 Body Mass Index 29.7 05/12/2018 1:11 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 Plan of Treatment Health Maintenance Due Date Last Done Comments Hepatitis C Virus (HCV) Screening 1975 Hepatitis B Immunization (1 of 3 - 19+ 3-dose series) 09/20/1995 Colonoscopy 2021 Colorectal Cancer Screening 2021 Influenza Immunization (#1) 2023 SARS-COV-2 Immunization ( - 2023- season) 2023 Respiratory Syncytial Virus (RSV) Immunization [...] Insurance MEDICAID [employer] Care Teams Steak Sauce Maker Relationship Specialty Start Date End Date Chan Goldstein MD [address] [place] [id number] PCP - General Family Medicine 01/18/19 "
--- OUTSIDE RECORDS SUMMARY | 2024-09-04 10:03 | XMS_ITS | Clinical Summary ---
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 Gender Identity Not on file Sexual Orientation Not on file Last Filed Vital Signs Vital Sign Reading Time Taken Comments Blood Pressure 118/72 06/12/2014 10:29 AM CHEMICAL RADIATION TECHNICIAN Pulse 74 06/12/2014 10:29 AM CHEMICAL RADIATION TECHNICIAN Temperature - - Respiratory Rate - - Oxygen Saturation - - Inhaled Oxygen Concentration - - Weight 84.4 kg (186 lb) 06/12/2014 10:29 AM CHEMICAL RADIATION TECHNICIAN Height 162.6 cm (5' 4 ) 06/12/2014 10:29 AM CHEMICAL RADIATION TECHNICIAN Body Mass Index 31.93 06/12/2014 10:29 AM CHEMICAL RADIATION TECHNICIAN Plan of Treatment Health Maintenance Due Date [...]
[2024-09-04 10:21] LABS: Basophils Absolute Auto 0.02 K/mm3 (0.00-0.10); Basophils Percent Auto 0.4 % (0.0-1.0); Hematocrit 40.2 % (35.0-49.0); Hemoglobin 13.5 g/dL (12.0-15.0); Immature Granulocyte Absolute 0.02 K/mm3 (0.00-0.00); Immature Granulocyte Percent A 0.4 % (0.0-0.0); Lymphocytes Absolute Auto 1.23 K/mm3 (1.10-4.50); Lymphocytes Percent Auto 21.8 % (18.0-42.0); Mean Corpuscular HGB Conc 33.6 g/dL (32-36); Mean Corpuscular Hemoglobin 27.8 pg (27.0-31.0); Mean Corpuscular Volume 82.9 fL (78.0-102.0); Mean Platelet Volume 9.7 fl (9.2-11.8); Monocytes Absolute Auto 0.61 K/mm3 (0.10-0.90); Monocytes Percent Auto 10.8 % (2.0-11.0); Neutrophils Absolute Auto 3.76 K/mm3 (1.70-7.20); Neutrophils Percent Auto 66.6 % (50.0-70.0); Platelet Count Result 296 K/mm3 (150-420); Red Blood Count 4.85 M/mm3 (4.20-5.40); Red Cell Distribution Width 11.9 % (11.6-14.4); White Blood Count 5.6 K/mm3 (4.8-10.8)
--- NOTE | 2024-09-04 10:21 | ED.NAVMDI ---
HPI - Nausea/Vomiting/Diarrhea General Chief complaint: Nausea/Vomiting/Diarrhea Stated complaint: vomiting Time Seen by Provider: 09/04/24 09:57 Source: patient Mode of arrival: ambulatory Limitations: no limitations History of Present Illness HPI Narrative: patient is a 48-year-old female with a significant past medical history that presents today with nausea vomiting. Patient has been here multiple times for nausea vomiting she was just here last Tuesday for this. She did test COVID positive however she also smokes marijuana and has cyclic vomiting syndrome as well. No way of telling if his nausea vomiting is coming from his likely vomiting syndrome or from the COVID. MD elicited complaint: nausea, vomiting and abdominal pain Pertinent past history: cyclical vomiting Description of vomiting: watery Associated nausea: Yes Associated abdominal pain: Yes Location of pain: diffuse Radiation: diffuse Severity: mild Exacerbating factors: eating Relieving factors: none Associated symptoms: loss of appetite, nausea/vomiting, shortness of breath and weakness Related Data Home Medications Medication Instructions Recorded Confirmed Last Taken Type mirtazapine 15 mg tablet 15 mg PO HS PRN sleep 12/29/22 08/31/24 Unknown History atorvastatin 40 mg tablet 40 mg PO DAILY 08/31/24 08/31/24 Unknown History gabapentin 100 mg capsule 100 mg PO BID 08/31/24 08/31/24 Unknown History gabapentin 100 mg capsule 300 mg PO HS 08/31/24 08/31/24 Unknown History meloxicam 15 mg tablet 15 mg PO DAILY 08/31/24 08/31/24 Unknown History promethazine 25 mg tablet 25 mg PO Q6H PRN nausea and 08/31/24 08/31/24 Unknown History vomiting sertraline 100 mg tablet 200 mg PO QHS 08/31/24 08/31/24 Unknown History Allergies Allergy/AdvReac Type Severity Reaction Status Date / Time hydrocodone AdvReac Mild nausea Verified 09/04/24 09:57 vomiting Penicillins AdvReac Redness of Verified 09/04/24 09:57 Skin Review of Systems Review of Systems: All systems reviewed & are unremarkable except as noted in HPI and below Constitutional: Constitutional: Reports no additional constitutional complaints Eyes: Eyes: Reports no additional eye complaints ENT: Reports system reviewed and no additional complaints, except as documented Cardiovascular: Cardiovascular: Reports no additional cardiovascular complaints Respiratory: Respiratory: Reports no additional respiratory complaints Gastrointestinal: Gastrointestinal: Reports as per HPI, Reports abdominal pain, Reports nausea and Reports vomiting Genitourinary: Genitourinary: Reports dysuria Musculoskeletal: Musculoskeletal: Reports no additional musculoskeletal complaints Integumentary/Breasts: Skin/Breast: Reports system reviewed and no additional complaints, except as docu Neurologic: Reports system reviewed and no additional complaints, except as documented Psychiatric: Psychiatric: Reports no additional psychiatric complaints Endocrine: Endocrine: Reports no additional endocrine complaints Hematologic/Lymphatic: Hematologic/Lymphatic: Reports no additional hematologic/lymphatic complaints Allergic/Immunologic: Allergic/Immunologic: Reports no additional allergic/immunologic complaints [facility] Past Medical History Medical History Colon cancer screening Radius/ulna fracture Depression Family History Family History Mother No problems noted. Father No problems noted. Social History Social History Years smoked: 1 Smoking status: Never smoker Tobacco type: e-cigarettes/vaping Additional smoking assessment comments: smoke cigarettes frequency amount unknown Alcohol intake: never Alcohol use details: denies alcohol use Substance use: never Substance use type: marijuana Other substance usage details: daily Last use: 01/27/24 1400 Do You Feel Safe in your Home?: Yes Lack of Transportation: No Lack of Food: Never True Current Housing: I Have Housing Concerned About Future Housing: No Difficulty Paying Gas/Electric Bills: No Difficulty Paying for Meds: No Currently Unemployed: No Education: Associate Degree Difficulty w/ Childcare or Family Care: No Living arrangements: with family Gender identity (if verbalized by the patient): Female Spiritual care concerns: No Agree to blood products: Yes Exam Const: General: healthy appearing and no acute distress Nutritional Appearance: well nourished Orientation/consciousness: patient oriented x3 HENMT: Head: normal to inspection Ears: external ears normal Face/Nose/Sinus: Normal external nose present Face and sinus: normal facial exam Mouth: Yes Normal oral and palatal mucosa present Eyes: Conjunctivae: conjunctivae normal Cornea: corneas normal Pupils: Equal, round and reactive pupils present Neck: Neck: normal visual inspection Chest: Chest palpation & inspection: normal inspection of the chest Resp: Effort & Inspection: normal respiratory effort Auscultation: clear to auscultation bilaterally Cardio: Rate: regular rate Rhythm: regular rhythm GI: GI Palp: Yes Soft to palpation Auscultation: normal bowel sounds and Hypoactive bowel sounds present Back/Spine/Pelvis: Back: no CVA tenderness Skin: General skin exam: normal color Rashes: no rashes Wounds: no wounds Neuro: General: patient oriented x3 Cranial nerves: Yes Nystagmus not present Speech: normal speech Extrem: General: normal to inspection Psych: Mental Status: mental status grossly normal Affect: normal affect Attitude: cooperative Course Vital Signs Vital signs: Vital Signs Temperature 98.1 F 09/04/24 09:51 Pulse Rate 90 09/04/24 09:51 Respiratory Rate 18 09/04/24 09:51 Blood Pressure 173/108 H 09/04/24 09:51 Pulse Oximetry 93 09/04/24 09:51 Oxygen Delivery Room Air 09/04/24 09:51 Temperature 98.1 F 09/04/24 09:51 Pulse Rate 90 09/04/24 09:51 Respiratory Rate 18 09/04/24 09:51 Blood Pressure 173/108 H 09/04/24 09:51 Pulse Oximetry 93 09/04/24 09:51 Oxygen Delivery Room Air 09/04/24 09:51 MDM - Nausea/Vomiting/Diarrhea MDM Narrative Medical decision making narrative: patient was positive for COVID on Tuesday and she still is having the same symptoms she was having then nausea vomiting and a little bit of respiratory symptoms. Do labs on her and started off with fluids and she says over does not work for the nausea so will give her some Haldol for the nausea that seems to work great for her. Also give her some Toradol for the abdominal pain. She does admit to smoking weed this morning. So once again this could just be cyclic vomiting syndrome Differential Diagnosis Differential diagnosis: Likely gastroenteritis and other ( cyclic vomiting syndrome, COVID) Medical Records Attestation: I reviewed the patient's medical records. Lab Data Attestation: I reviewed the patient's lab results. 09/04/24 10:15 09/04/24 10:15 Labs: Lab Results 09/04/24 09/04/24 Range/Units 10:15 10:56 WBC 5.6 (4.8-10.8) K/mm3 RBC 4.85 (4.20-5.40) M/mm3 Hgb 13.5 (12.0-15.0) g/dL Hct 40.2 (35.0-49.0) % MCV 82.9 (78.0-102.0) fL MCH 27.8 (27.0-31.0) pg MCHC 33.6 (32-36) g/dL RDW 11.9 (11.6-14.4) % Plt Count 296 (150-420) K/mm3 MPV 9.7 (9.2-11.8) fl Immature Gran % (Auto) 0.4 H (0.0-0.0) % Neut % (Auto) 66.6 (50.0-70.0) % Lymph % (Auto) 21.8 (18.0-42.0) % Lynn % (Auto) 10.8 (2.0-11.0) % Eos % (Auto) 0.0 L (1.0-6.0) % Baso % (Auto) 0.4 (0.0-1.0) % Lymph # (Auto) 1.23 (1.10-4.50) K/mm3 Lynn # (Auto) 0.61 (0.10-0.90) K/mm3 Eos # (Auto) 0.00 L (0.02-0.50) K/mm3 Baso # (Auto) 0.02 (0.00-0.10) K/mm3 Abs Immat Gran (auto) 0.02 H (0.00-0.00) K/mm3 Absolute Neuts (auto) 3.76 (1.70-7.20) K/mm3 Absolute Nucleated RBC 0.00 (0.00-0.00) K/mm3 Nucleated RBC % 0.0 (0-0.0) % Sodium 133 L (137-145) mmol/L Potassium 3.0 L (3.4-5.0) mmol/L Chloride 95 L (98-107) mmol/L Carbon Dioxide 29 (22-30) mmol/L Anion Gap 9 (4-12) mmol/L BUN 12 D (7-17) mg/dL Creatinine 0.75 (0.7-1.0) mg/dL Estim Creat Clear Calc 88 ml/min Estimated GFR > 60 (59 - ) Glucose 126 H (65-110) mg/dL Calculated Osmolality 277 L (285-295) mOsm/kg Lactic Acid 2.3 H (0.4-2.0) mmol/L Calcium 8.9 (8.4-10.2) mg/dL Total Bilirubin 0.7 (0.2-1.3) mg/dL AST 35 (14-36) U/L ALT 32 (6-35) U/L Alkaline Phosphatase 58 (38-126) U/L Total Protein 7.4 (6.3-8.2) g/dL Albumin 4.4 (3.5-5.1) g/dL Lipase 59 (23-300) U/L Urine Color Light yellow (Yellow) Urine Appearance Clear (Clear) Urine pH 6.0 (5.0-8.0) Ur Specific [place] <= 1.005 L (1.010-1.020) Urine Protein Negative (Negative) Urine Glucose (UA) Negative (Negative) Urine Ketones Negative (Negative) Ur Blood (Man) Trace-intact H (Negative) Urine Nitrate Negative (Negative) Urine Bilirubin Negative (Negative) Urine Urobilinogen 0.2 (0.2-1.0) mg/dL Leukocyte Esterase Rfl Trace H (Negative) ISABEL/UL Urine RBC 0-2 (0-2) /hpf Urine WBC 0-3 (0-3) /hpf Ur Squamous Epith Cells Few (Few) /hpf Urine Bacteria Trace (None) /hpf Discharge Plan Discharge Clinical Impression: Nausea vomiting and diarrhea, Gastroenteritis, COVID-19 Patient Disposition: Home Condition: Stable Instructions: Dehydration (ED), Acute Nausea and Vomiting (ED) Patient Language: Ukrainian Prescriptions: No Action gabapentin 100 mg capsule 100 mg PO BID Rx Instructions: 100 mg p.o. AM and afternoon 300 mg p.o. HS gabapentin 100 mg capsule 300 mg PO HS promethazine 25 mg tablet 25 mg PO Q6H PRN (Reason: nausea and vomiting) sertraline 100 mg tablet 200 mg PO QHS meloxicam 15 mg tablet 15 mg PO DAILY atorvastatin 40 mg tablet 40 mg PO DAILY atorvastatin 40 mg Tablet 40 mg PO DAILY Qty: 30 0RF amlodipine [Norvasc] 5 mg Tablet 10 mg PO DAILY Qty: 30 2RF ondansetron HCl 4 mg tablet 4 mg PO Q8H PRN (Reason: nausea and vomiting) Qty: 10 0RF albuterol sulfate [Ventolin HFA] 90 mcg/actuation HFA aerosol inhaler 2 puff inhalation QID PRN (Reason: shortness of breath or wheezing) Qty: 6.7 0RF mirtazapine 15 mg tablet 15 mg PO HS PRN (Reason: sleep) Follow-up/Referrals: UNKNOWN,DOCTOR [Non-Staff] - Time of Disposition: 11:28
[2024-09-04] MEDS: SODIUM CHLORIDE 0.9% IV 1,000 ML 999 ML IV CONT (10:28)
[2024-09-04] MEDS: HALOPERIDOL LACTATE 5 MG/ML VIAL 2 MG IV PUSH (10:29)
[2024-09-04 10:30] VITALS: BP 157/104; PULSE 77; RESP 17; O2SAT 94
[2024-09-04 10:35] LABS: Lactic Acid Reflex 2.3 mmol/L (0.4-2.0)
[2024-09-04 10:36] LABS: Alanine Aminotransferase 32 U/L (6-35); Albumin Level 4.4 g/dL (3.5-5.1); Alkaline Phosphatase 58 U/L (38-126); Anion Gap 9 mmol/L (4-12); Aspartate Amino Transferase 35 U/L (14-36); Bilirubin,Total 0.7 mg/dL (0.2-1.3); Blood Urea Nitrogen 12 mg/dL (7-17); Calcium 8.9 mg/dL (8.4-10.2); Carbon Dioxide 29 mmol/L (22-30); Chloride 95 mmol/L (98-107); Estimated CRCL calculation 88 ml/min; Estimated Glomerular Filt Rate > 60; Glucose 126 mg/dL (65-110); Lipase 59 U/L (23-300); Osmolality Calculated 277 mOsm/kg (285-295); Sodium 133 mmol/L (137-145); Total Protein 7.4 g/dL (6.3-8.2)
--- OUTSIDE RECORDS SUMMARY | 2024-09-04 10:53 | XMS_ITS | Clinical Summary ---
Author Organization [facility] Address [address] [place] [address] Phone Care Team Providers Care Swing Type Lathe Operator Name Role Phone Chan Goldstein MD Primary Care Provider [phone] Allergies Active Allergy Reactions Criticality Noted Date [...] Comments Blood Pressure 110/72 05/12/2018 1:11 PM [facility] Pulse 81 05/12/2018 1:11 PM [facility] Temperature 36.1 C (96.9 F) 05/12/2018 1:11 PM [facility] Respiratory Rate 16 05/12/2018 1:11 PM [facility] Oxygen Saturation 97% 05/12/2018 1:11 PM [facility] Inhaled Oxygen Concentration - - Weight 78.5 kg (173 lb) 05/12/2018 1:11 PM [facility] Height 162.6 cm (5' 4 ) 05/12/2018 1:11 PM [facility] Body Mass Index 29.7 05/12/2018 1:11 PM [facility] Plan of Treatment Health Maintenance Due Date [...] Insurance [employer]ICA[employer] Care Teams Swing Type Lathe Operator Relationship Specialty Start Date End Date Chan Goldstein MD [address] [place] [address] PCP - General Family Medicine 01/18/19
[2024-09-04 11:00] VITALS: BP 148/87; PULSE 77; RESP 17; O2SAT 94
[2024-09-04 11:10] LABS: Add Urine Microscopic? YES; Appearance Urine Clear (Clear); Bilirubin Urine Negative (Negative); Blood Urine Trace-intact (Negative); Color Urine Light Yellow (Yellow); Glucose Urine UA Negative (Negative); Ketones Urine Negative (Negative); Leukocyte Esterase Ur Trace LEU/UL (Negative); Nitrate Urine Negative (Negative); Protein Urine Negative (Negative); Specific Grav Ur <= 1.005 (1.010-1.020); Urobilinogen Urine 0.2 mg/dL (0.2-1.0)
[2024-09-04 11:19] LABS: Bacteria Urine Trace /hpf; RBC Urine 0-2 /hpf (0-2); Squamous Epithelial Cell Urine Few /hpf (Few); WBC Urine 0-3 /hpf (0-3)
[2024-09-04 11:30] VITALS: BP 138/92; PULSE 75; RESP 17; O2SAT 94
[2024-09-04] MEDS: POTASSIUM CHLORIDE 20 MEQ ER TABLET 40 MEQ PO (11:36)
[2024-09-04 11:40] VITALS: BP 145/88; PULSE 77; RESP 17; TEMP 36.8; O2SAT 94
[2024-09-04 12:18] LABS: Reflex Lactic Acid Yes or No Add Lactic
== END 2024-09-04 11:40 | disposition home or self-care (01) ==
PROVIDERS: Emergency Provider Family Medicine; PCP Physician Assistant
DX: K52.9 Noninfective gastroenteritis and colitis, unspecified (principal); U07.1 COVID-19
CPT/HCPCS: 36415; 80053; 81001; 83605; 83690; 85025; 96361; 96374; 99284; A9270; J1630; J7030

== ENCOUNTER 2024-09-06 10:58 | Outpatient (CLI) | payer OTHER, SELFPAY ==
--- NOTE | ~2024-09-06 | XR_ITS ---
XR abdomen/kub 1V Ordering provider: Natalio Parish, [employer] History: . Nausea and vomiting,GENERAL PAIN,HEMATURIA, DAYS . Comparison: None. FINDINGS: BOWEL: Nonobstructive bowel gas pattern. ORGANOMEGALY: None. SIGNIFICANT PATHOLOGIC CALCIFICATIONS: None. OTHER: IUD is seen in the uterus. No free air is seen under the diaphragm. Levoscoliosis. IMPRESSION: NO ACUTE ABDOMINAL FINDINGS. Reviewed, dictated and finalized at location A.
--- OUTSIDE RECORDS SUMMARY | 2024-09-06 11:04 | XMS_ITS | Data Portability ---
Author Organization [facility] [place] Address [address] [place] [address] Assessment Encounter Date Assessment Date Assessment LastModified by Organization Details LastModified Time 04/20/2022 04/20/2022 Annual gynecological exam performed. Patient will come back in a year unless there are new symptoms. Not available 04/20/2022 11:56:25 07/26/2023 07/26/2023 Annual [...] Lab CBC w/ auto diff 2024 025 [facility] (Lab), [address], [place], [address], 5 03:14:04 CMP, serum or plasma 2024 025 [facility] (Lab), [address], [place], [address], 5 03:14:05 lipid panel, blood 2024 025 [facility] (Lab), [address], [place], [address], 5 03:14:05 TSH, serum or plasma 2024 025 [facility] (Lab), [address] [facility], [place], [address], 5 03:14:05 25-hydroxy vitamin D2 + 25-hydroxy vitamin D3, QN, serum or plasma 2024 025 [facility] (Lab), [address] [facility], [place], [address], 5 03:14:06 Referral None recorded. Procedures None recorded. Surgeries None recorded. Imaging MAMMO, screening, digital, bilateral 2023 024 [facility], [address], [place], [address], 5 05:01:13 MAMMO, screening, digital, bilateral 2022 023 [email or web address] 1 [facility], [address], [place], [address], 4 15:29:55 Medication Orders None recorded. Patient [...] Recei irvin: 09/02 0018 First Scree n: Garette rs, [place] , CT Speci men: Scree amanda Pap - Image d, Cervi x STATE MENT OF ADEQU ACY: Satis facto ry for evalu ation Trans forma tion zone compo nent prese nt FINAL DIAGN OSIS: Negat eileen for Intra epith elial Lesio n or Jacqueline fernandez Elect abbie kadyabe ernesto d by Juarez mcnulty, [place] , CT on 2020 at 3:32 PM ----- ----- [...] as clini ernesto luz nted. Not Available [facility] (Lab) [address], [place], [address], 09/02/2020 16:35:31 04/20/19 23 04/20/2022 IMAGE GUIDE D PAP AND HPV REGAR DLESS image guided Pap, HPV regardless of Pap result SEE RESULT S BELOW CASE REPOR T: Cytol ogy Gynec ologi mayela Repor t Case: [id number] Autho marco reveles Provi fidel: Rosalva Longoria, CNMarianna Colle cted: 04/20 1801 Order ing Locat ion: [place] [facility] Recei irvin: 04/21 0416 First Scree n: Haylie Sanford, CT Rescr een: Magdalena bautista, Zack brooks, CT Speci men: Scree amanda Pap - [...] as clini ernesto luz nted. Not Available [facility] (Lab) [address] [facility], [place], [address], 04/22/2022 07:18:22 07/20/19 25 07/19/2024 CBC W/DIF F WBC 9.4 10'3/ uL 3.5-10 .5 Not Available [facility] (Lab) [address], [place], [address], 07/20/2024 03:13:59 07/20/19 25 07/19/2024 CBC W/DIF F RBC 4.29 10'6/ uL (based on docume nted legal sex) 3.80-5 .20 Not Available [facility] (Lab) [address], [place], [address], 07/20/2024 03:13:59 07/20/1907/19/2024 CBC W/DIF F HGB 12.3 g/dL (based on docume nted legal sex) 11.6-1 5.4 Not Available [facility] (Lab) [address], [place], [address], 07/20/2024 03:13:59 07/20/1907/19/2024 CBC W/DIF F HCT 37.1 % (based on docume nted legal sex) 34.0-4 5.0 Not Available [facility] (Lab) [address], [place], [address], 07/20/2024 03:13:59 07/20/19 25 07/19/2024 CBC W/DIF F MCV 86.5 fL 80.0-9 9.0 Not Available [facility] (Lab) [address], [place], [address], 07/20/2024 03:13:59 07/20/1907/19/2024 CBC W/DIF F MCH 28.7 pg 27.0-3 4.0 Not Available [facility] (Lab) [address] [place], [address], 07/20/2024 03:13:59 07/20/1907/19/2024 CBC W/DIF F MCHC 33.2 g/dL 32.0-3 5.5 Not Available [facility] (Lab) [address] [place], [address], 07/20/2024 03:13:59 07/20/19 25 07/19/2024 CBC W/DIF F RDW 12.6 % 11.0-1 5.0 Not Available [facility] (Lab) [address] [place], [address], 07/20/2024 03:13:59 07/20/19 25 07/19/2024 CBC W/DIF F plt 335 10'3/ uL 150-40 0 Not Available [facility] (Lab) [address] [facility], [place], [address], 07/20/2024 03:13:59 07/20/19 25 07/19/2024 CBC W/DIF F MPV 10.4 fL 8.8-12 .1 Not Available [facility] (Lab) [address] [facility], [place], [address], 07/20/2024 03:13:59 07/20/19 25 07/19/2024 CBC W/DIF F neutrophils 66.0 % 34.0-7 3.0 Not Available [facility] (Lab) [address] [facility], [place], [address], 07/20/2024 03:13:59 07/20/19 25 07/19/2024 CBC W/DIF F lymphocytes 26.0 % 15.0-5 0.0 Not Available [facility] (Lab) [address] [facility], [place], [address], 07/20/2024 03:13:59 07/20/19 25 07/19/2024 CBC W/DIF F monocytes 5.7 % 1.0-15 .0 Not Available [facility] (Lab) [address] [facility], [place], [address], 07/20/2024 03:13:59 07/20/19 25 07/19/2024 CBC W/DIF F eosinophils 1.5 % 0.0-8. 0 Not Available [facility] (Lab) [address] [facility], [place], [address], 07/20/2024 03:13:59 07/20/19 25 07/19/2024 CBC W/DIF F basophils 0.6 % 0.0-2. 0 Not Available [facility] (Lab) [address] [facility], [place], [address], 07/20/2024 03:13:59 07/20/1907/19/2024 CBC W/DIF F immature granulocytes 0.2 % no define d refere nce range Immat ure Granu locyt es (IG) repre sents autom ated enume ratio n of Metam yeloc ytes, Myelo cytes and Promy elocy livia when IG is < 5%. Blast s are not inclu ded in IG and repor eder separ ately if prese nt. Not Available [facility] (Lab) [address] [facility], [place], [address], 07/20/2024 03:13:59 07/20/1907/19/2024 CBC W/DIF F absolute neutrophils 6.2 10'3/ uL 1.5-8. 0 Not Available [facility] (Lab) [address] [facility], [place], [address], 07/20/2024 03:13:59 07/20/19 25 07/19/2024 CBC W/DIF F absolute lymphocytes 2.4 10'3/ uL 1.0-4. 0 Not Available [facility] (Lab) [address] [facility], [place], [address], 07/20/2024 03:13:59 07/20/19 25 07/19/2024 CBC W/DIF F absolute monocytes 0.5 10'3/ uL 0.2-1. 0 Not Available [facility] (Lab) [address] [facility], [place], [address], 07/20/2024 03:13:59 07/20/19 25 07/19/2024 CBC W/DIF F absolute eosinophils 0.1 10'3/ uL 0.0-0. 6 Not Available [facility] (Lab) [address] [facility], [place], [address], 07/20/2024 03:13:59 07/20/19 25 07/19/2024 CBC W/DIF F absolute basophils 0.1 10'3/ uL 0.0-0. 3 Not Available [facility] (Lab) [address], [place], [address], 07/20/2024 03:13:59 07/20/1907/19/2024 CBC W/DIF F absolute [...] glover book. nm.or g/gen derx Not Available [facility] (Lab) [address], [place], [address], 07/20/2024 03:13:59 07/20/1907/19/2024 LIPID PANEL ,AMA (LDL- CALC) total cholesterol 161 mg/dL 0-199 Not Available [facility] (Lab) [address] [place], [address], 07/20/2024 03:14:05 07/20/1907/19/2024 LIPID PANEL ,AMA (LDL- CALC) triglyceride s 211 mg/dL 0-150 high NCEP Refer ence Value s for Trigl yceri addi: Sharron l: <150 mg/dL Borde rline High: 150 - 199 mg/dL High: 200 - 499 mg/dL Very High: >/= 500 mg/dL Not Available [facility] (Lab) [address] [place], [address], 07/20/2024 03:14:05 07/20/1907/19/2024 LIPID PANEL ,AMA (LDL- CALC) HDL cholesterol 50 mg/dL >40 Not Available [facility] (Lab) [address] [place], [address], 07/20/2024 03:14:05 07/20/1907/19/2024 LIPID PANEL ,AMA (LDL- [...] mg/dL , HDL <40 mg/dL Not Available [facility] (Lab) [address], [place], [address], 07/20/2024 03:14:05 07/20/1907/19/2024 LIPID PANEL ,AMA (LDL- CALC) non-HDL cholesterol 111 mg/dL no refere nce range A reaso nable goal for non-H DL maricarmen stero l is one that is 30 mg/dL highe r than the LDL maricarmen stero l goal. Not Available [facility] (Lab) [address], [place], [address], 07/20/2024 03:14:05 07/20/1907/19/2024 LIPID PANEL ,AMA (LDL- CALC) chol/HDL ratio 3.2 . 0.0-5. 0 On August 10, 2022, [facility] labor atori arleen terry ed the equat ion for calcu latin g estim ated low-d ensit y lipop rotei n-cho leste rol (LDL- C) from the Fried gisela equat ion to the Radha n/Hop tracey equat ion. This new equat ion is only valid for lipid panel s with trigl yceri addi < 400 mg/dL . Blancai es arun reeson kaveh ed that this new equat ion will impro ve the accur acy of LDL-C , espec ially in scena damon when LDL-C orlando ntrat ions are relat ively low (< 100 mg/dL ), trigl yceri addi are eleva eder, or patie nt is non-f erik g. Refer ences : - Radha pedersen, Jose Buenrostro, Suleiman Beth , Karen [address]. Dina sullivan, Freddie Arevalo, Freddie tinajero, [facility] , and Yohannes Siddiqui . 2013. [...] Kat malave R, Mckenna pitt E, [facility] RS, Artur SR, Radha pedersen SS. Fast ing Versu s Nonfa sting and Low-D ensit y Lipop rotei n Maricarmen stero l Accur acy. Circu latio n. 2017Apr 19;137 (1):1 0-19. Not Available [facility] (Lab) [address] [place], [address], 07/20/2024 03:14:05 07/20/19 25 07/19/2024 CMP(C OMPRE HENSI VE METAB OLIC PANEL ) sodium 138 mmol/ L 133-14 6 Not Available [facility] (Lab) [address] [place], [address], 07/20/2024 03:14:05 07/20/19 25 07/19/2024 CMP(C OMPRE HENSI VE METAB OLIC PANEL ) potassium 3.9 mmol/ L 3.5-5. 1 Not Available [facility] (Lab) [address] [place], [address], 07/20/2024 03:14:05 07/20/19 25 07/19/2024 CMP(C OMPRE HENSI VE METAB OLIC PANEL ) chloride 100 mmol/ L 98-107 Not Available [facility] (Lab) [address] [place], [address], 07/20/2024 03:14:05 07/20/19 25 07/19/2024 CMP(C OMPRE HENSI VE METAB OLIC PANEL ) carbon dioxide 31 mmol/ L 21-31 Not Available [facility] (Lab) [address] [facility], [place], [address], 07/20/2024 03:14:05 07/20/1907/19/2024 CMP(C OMPRE HENSI VE METAB OLIC PANEL ) anion gap 7 mmol/ L 4-13 Not Available [facility] (Lab) [address] [facility], [place], [address], 07/20/2024 03:14:05 07/20/1907/19/2024 CMP(C OMPRE HENSI VE METAB OLIC PANEL ) blood urea nitrogen 18 mg/dL 7-25 Not Available [facility] (Lab) [address], [place], [address], 07/20/2024 03:14:05 07/20/1907/19/2024 CMP(C OMPRE HENSI VE METAB OLIC PANEL ) creatinine 1.00 mg/dL 0.60-1 .30 Not Available [facility] (Lab) [address] [facility], [place], [address], 07/20/2024 03:14:05 07/20/1907/19/2024 CMP(C OMPRE HENSI VE METAB OLIC PANEL ) egfrcr (CKD-epi 2020) 70 mL/mi n/1.7 3_m2 >=60 Not Available [facility] (Lab) [address] [facility], [place], [address], 07/20/2024 03:14:05 07/20/19 25 07/19/2024 CMP(C OMPRE HENSI VE METAB OLIC PANEL ) calcium 9.5 mg/dL 8.3-10 .5 Not Available [facility] (Lab) [address] [facility], [place], [address], 07/20/2024 03:14:05 07/20/19 25 07/19/2024 CMP(C OMPRE HENSI VE METAB OLIC PANEL ) glucose 96 mg/dL 70-100 Not Available [facility] (Lab) [address] [facility], [place], [address], 07/20/2024 03:14:05 07/20/19 25 07/19/2024 CMP(C OMPRE HENSI VE METAB OLIC PANEL ) protein, total 7.2 g/dL 6.4-8. 3 Not Available [facility] (Lab) [address] [facility], [place], [address], 07/20/2024 03:14:05 07/20/19 25 07/19/2024 CMP(C OMPRE HENSI VE METAB OLIC PANEL ) albumin 4.5 g/dL 3.5-5. 0 Not Available [facility] (Lab) [address] [facility], [place], [address], 07/20/2024 03:14:05 07/20/19 25 07/19/2024 CMP(C OMPRE HENSI VE METAB OLIC PANEL ) ALT 13 units /L 9-43 Not Available [facility] (Lab) [address] [facility], [place], [address], 07/20/2024 03:14:05 07/20/19 25 07/19/2024 CMP(C OMPRE HENSI VE METAB OLIC PANEL ) alkaline phosphatase 79 units /L 34-104 Not Available [facility] (Lab) [address] [place], [address], 07/20/2024 03:14:05 07/20/19 25 07/19/2024 CMP(C OMPRE HENSI VE METAB OLIC PANEL ) AST 14 units /L 13-39 Not Available [facility] (Lab) [address] [place], [address], 07/20/2024 03:14:05 07/20/19 25 07/19/2024 CMP(C OMPRE HENSI VE METAB OLIC PANEL ) bilirubin, total 0.4 mg/dL 0.2-1. 2 Not Available [facility] (Lab) [address] [facility], [place], [address], 07/20/2024 03:14:05 07/20/19 25 07/19/2024 TSH, REFLE X FREE T4 TSH 1.88 uIU/m L 0.30-5 .33 Not Available [facility] (Lab) [address] [facility], [place], [address], 07/20/2024 03:14:05 07/20/19 25 07/19/2024 VITAM IN D, 25-OH (TOTA L D2/D3 ) vitamin D, 25-hydroxy, total 25.2 NG/mL 30.0-1 00.0 low Sugge stive of Defic iency : <20 ng/mL Sugge stive of Insuf ficie ncy: 20-29 ng/mL Sugge stive of Suffi cienc y: 30-10 0 ng/mL Sugge stive of Toxic ity: >150 ng/mL Not Available [facility] (Lab) [address] [facility], [place], [address], 07/20/2024 03:14:06 Result Notes None recorded. Problems Name Problem SNOMED Code Status Onset Date Resolution Date Notes Provider Name and Address Organization Details Recorded Time Pelvic and perineal pain 380418222 Completed 201908/29/2020 Pelvic and perineal pain;Pra ctice ID: [id number] Ally butts [facility] 11:13:46 Acute vaginiti s [id number] Completed 201708/29/2020 Acute vulvovag initis;R ecorded Elsewher e: No Locat ion: [facility] S ource: EHR Inspector Wire Rope [place]: N Practi ce ID: 0001 Gildardo lable Time: 02:15:00 PM Ally butts [facility] 11:13:30 Clinical finding Completed 201608/29/2020 Presence of (intraut erine) contrace ptive device;R ecorded Elsewher e: No Locat ion: [facility] S ource: EHR Inspector [employer] [place]: N Sai ce ID: 0001 Gildardo lable Time: 03:00:00 PM Ally Carter [facility] 11:13:[address] Concept Completed 201708/29/2020 Well woman check w/o abnormal finding; Recorded Elsewher e: No Locat ion: [facility] S ource: EHR Inspector [employer] [place]: N Sai ce ID: 0001 Gildardo lable Time: 02:15:00 PM Ally Carter [facility] 11:13:51 Finding of pattern of menstrua l cycle Completed 201608/29/2020 Other specifie d irregula r menstrua tion;Rec orded Elsewher e: No Locat ion: [facility] [place] George Gibbs ce ID: 0001 Gildardo lable Time: 12:00:00 PM Ally Carter [facility] 11:13:27 Contrace ptive sheath status [id number] Completed 201608/29/2020 Encounte r for routine checking of IUD;Ronal rded Elsewher e: No Locat ion: [facility] [place]: N Rjti ce ID: 0001 Gildardo lable Time: 01:45:00 PM Ally butts [facility] 11:13:29 Insertio n of intraute rine contrace ptive device Completed 201608/29/2020 Encounte r for insertio n of intraute rine contrace ptive device;R ecorded Elsewher e: No Locat ion: [facility] S ource: EHR Inspector [employer] [place]: N Practi ce ID: 0001 Gildardo lable Time: 03:00:00 PM Ally butts, [facility] 11:13:54 Finding of pattern of menstrua l cycle [id number] Completed 201608/29/2020 Excessiv e and frequent menstrua tion with irregula r cycle;Re corded Elsewher e: No [facility]: EHR Inspector [employer] R[employer] [place]: N Rjti ce ID: 0001 Gildardo lable Time: 11:30:00 AM Ally butts, [facility] 11:13:[address] Concept Completed 201708/29/2020 Encntr for general adult medical exam w/o abnormal findings ;Recorde d Elsewher e: No Locat ion: [facility] [place]: N Sai ce ID: 0001 Gildardo lable Time: 02:15:00 PM Ally butts, [facility] 11:13:50 Pregnanc y test negative [id number] Completed 201608/29/2020 Encounte r for pregnanc y test, result negative ;Recorde d Elsewher e: No Locat ion: [facility] S ource: EHR Inspector [employer] [place]: N Rjti ce ID: 0001 Gildardo lable Time: 03:00:00 PM Ally butts, [facility] 11:13:32 Clinical finding Completed 201908/29/2020 Other specifie d disorder s of breast;R ecorded Elsewher e: No Locat ion: [facility] S ource: EHR Inspector [employer] [place]: N Rjti ce ID: 0001 Gildardo lable Time: 04:30:00 PM Ally butts, [facility] 11:13:14 Disorder of intraute rine contrace ptive device Completed 201608/29/2020 [facility] compl of intraute rine contrace ptive device, init encntr;R ecorded Elsewher e: No Locat ion: [facility] S ource: EHR Inspector [employer] Rope [place]: N Rjti ce ID: 0001 Gildardo lable Time: 11:15:00 AM Ally butts [facility] 1 11:13:48 Cyst of ovary Completed 201608/29/2020 Unspecif ied ovarian cyst, unspecif ied side;Rec orded Elsewher e: No Locat ion: [facility] S ource: EHR Inspector [employer] [place]: N Practi ce ID: 0001 Gildardo lable Time: 12:00:00 PM Ally butts [facility] 1 11:13:16 Problem Notes None recorded. Procedures Surgical History Date Name Laterality Status Provider Name and Address Organization Details Recorded Time 07/26/19 24 Date of Last Pap Smear completed [facility] 07/19/2024 16:55:24 04/18/19 24 Date of Last Colonoscopy completed [facility] 07/19/2024 16:56:22 06/23/19 17 endometrial biopsy completed [facility] 04/20/2022 09:54:16 04/18/19 12 open reduction of fracture of radius completed [facility] 04/20/2022 09:55:26 04/18/19 06 Hand tendon reconstruction completed [facility] 04/20/2022 11:59:54 Imaging Results None recorded. Procedure Notes None recorded. Medical Equipment None Reported. Allergies Allergen ID Allergen Name Allergen Category Reaction Reaction Severity Criticality Documentation Date Start Date Code Code System Note Provider Name and Address Organization Details Recorded Time 62025 Product containin g penicilli n (product) medicatio n rash Not available Not available 04/04/2020 63741 9031 SNOMED Ally butts, [facility] 1 11:13:03 82120 hydrocodo ne Not available Not available Not available Not available 09/01/2020 5489 RxNorm Ally butts, [facility] 1 12:16:09 Medications Name Sig Start Date Stop [...] Prescrib ed Elsewher e: No Locat ion: [facility] M odify By: ha peckuntbella DateTime : 04/20/19 04:28:10 PM Not Available [...] Updated DateTime 09/01/2020 165.1 cm 33.6 kg/m2 35868.66 g 134 mm[Hg] 87 mm[Hg] Ally Carter [facility] 1 12:16:02 Date Recorded Body height Body mass index (BMI) Body weight Systolic blood pressure Diastolic blood pressure Provider Name and Address Organization Details Last Updated DateTime 06/03/2021 165.1 cm 35.1 kg/m2 68141.99 g 137 mm[Hg] 82 mm[Hg] Ally Raul [facility] 2 10:25:36 Date Recorded Body height Body mass index (BMI) Body weight Systolic blood pressure Diastolic blood pressure Provider Name and Address Organization Details Last Updated DateTime 04/20/2022 165.1 cm 32.6 kg/m2 27955.1 g 120 mm[Hg] 82 mm[Hg] Saida Echols [facility] 3 11:56:48 Date Recorded Body height Body mass index (BMI) Body weight Systolic blood pressure Diastolic blood pressure Provider Name and Address Organization Details Last Updated DateTime 07/26/2023 165.1 cm 35.6 kg/m2 31854.77 g 119 mm[Hg] 77 mm[Hg] Sharon Joel [facility] 4 12:00:38 Date Recorded Body height Body mass index (BMI) Body weight Systolic blood pressure Diastolic blood pressure Provider Name and Address Organization Details Last Updated DateTime 07/19/2024 165.1 cm 34.9 kg/m2 51102.4 g 144 mm[Hg] 87 mm[Hg] Melina Kwon [facility] 5 16:53:15 Social History Question Answer Notes LastModified by Organizat ion Details LastModified Time Tobacco Smoking Status Never Smoker Ally Raul butts, [facility] 08/29/2020 11:40:35 Are You Blind Or Do You Have Difficulty Seeing? No [email or web address] Information n ot available 04/20/2022 What Is Your Level Of Caffeine Consumption? Occasional Information not available 04/20/2022 In The 14 Days Before Symptom Onset, Have You Had Close Contact With A Laboratory-confirm ed COVID-19 While That Case Was Ill? No [email or web address] Information n ot available 04/20/2022 In The 14 Days Before Symptom Onset, Have You Had Close Contact With A Person Who Is Under Investigation For COVID-19 While That Person Was Ill? No [email or web address] Information not available 04/20/2022 Have You Been To An Area Known To Be High Risk For COVID-19? No [email or web address] Information not available 04/20/2022 Are You Deaf Or Do You Have Serious Difficulty Hearing? No [email or web address] Information not available 04/20/2022 What Type Of Diet Are You Following? REGULAR [email or web address] Information n ot available 04/20/2022 Have You Ever Been Counseled For Unhealthy Alcohol Use? No [email or web address] Information not available 04/20/2022 Do You Use Your Seat Belt Or Car Seat Routinely? Yes [email or web address] Information not available 04/20/2022 Do You Have Smoke And Carbon Monoxide Detectors In Your Home? Yes [email or web address] Information not available 04/20/2022 Do You Use Sunscreen Routinely? Yes Information not available 04/20/2022 Has Tobacco Cessation Counseling Been Provided? No [email or web address] Information not available 04/20/2022 Have You Used IV Drugs? No Information not available 04/20/2022 Do You Have Difficulty Walking Or Climbing Stairs? No [email or web address] Information not available 04/20/2022 Sex: Unknown Functional Status Question Answer Note LastModified by Organizat ion Details LastModified Time Do you use any illicit or recreational drugs? Yes weed [email or web address] Information not available 04/20/2022 Do you or have you ever used any other forms of tobacco or nicotine? No [email or web address] Information not available 04/20/2022 What is your level of alcohol consumption? Occasional [email or web address] Information not available 04/20/2022 Are you able to care for yourself? Yes [email or web address] Information n ot available 04/20/2022 Do you have difficulty dressing or bathing? No [email or web address] Information not available 04/20/2022 What is your exercise level? Occasional [email or web address] Information not available 04/20/2022 Mental Status Question Answer Note LastModified by Organization D etails LastModified Time Do you feel stressed (tense, restless, nervous, or anxious, or unable to sleep at night)? [id number] Information not available 04/20/2022 Family History Relationship Description Onset Age of this Age Resolved Age Notes LastModified by Organization Details LastModified Time Unspecified Relation Malignant tumor of breast Grandm a sister and Grandp a sister [email or web address] Not available 09/01/2020 12:20:23 Maternal Grandfather Malignant tumor of colon 80 Not available 2020 12:20:44 Medical History Condition Response Allergies (Food, seasonal, environmental ) N Other N Breast Cancer N Drug/Latex Allergies/Reactions N Blood Transfusion N Dermatologic Disorders N Lung Disease N Defects or Inherited Disease N Breast Problem N Gestational Diabetes N Hematologic disorders N Anesthesia Complications N History of STI N Deep Vein Thrombosis N Polycystic ovary syndrome N Anxiety Disorder Y Autoimmune disease N Arthritis N Infertility N Polyps N Acid Reflux (GERD) N History of abnormal pap N Cancer N Stroke N Varicosities N Neurologic/Epilepsy N Endometriosis N High Cholesterol N Headaches Y Fibromyalgia N Kidney Disease N Heart Problems N Kidney or Bladder Problems N Thyroid Problems N GI Problems N Eating Disorder N Anemia Y Art (IVF or FET) N Psychiatric Illness N Ovarian Cancer N Diabetes N Pulmonary (TB, Asthma) N Hepatitis/Liver Disease N No Past Medical History N Eczema N Urinary Tract Infection N Abuse/Domestic Violence N Asthma N Trauma/Violence N Depression/ depression Y Heart Disease N Pre-Eclampsia N Hypertension Y Osteoporosis N Thrombophilias N Gynecological History Statement/Question Response Abnormal Pap N Date of Last Mammogram Date of LMP On BCP's at Conception? N Was last menstrual period normal N STIs/STDs N HPV Vaccine N Current Control Method IUD Are cycles usually normal N Date of Last Colonoscopy 04/18/2023 Sexually Active? Y Menses Monthly N Date of Last Pap Smear 07/26/2023 Sexual Problems? N Desired Control Method IUD LMP Unknown Obstetrics History GPAL:G 0 P 0 0 0 0 Type Value Living 0 Total 0 Past Encounters Encounter ID Performer Location Encounter Start Date Encounter Closed Date Diagnosis/Indication Diagnosis SNOMED-CT Code Diagnosis ICD10 Code Diagnosis Note [id number] Rosalva Castaneda CNM [place] [address] [address] 06/03/2021 10:18:49 06/04/2021 16:48:53 Surveillance of intrauterine device contraception done [id number] Z30.431 DID NOT REMOVE Discussed approval for IUD up to 7 years. Did offer to remove and insert new device but pt has decided to keep current IUD in place. [id number] Rosalva Castaneda CNM [place] [address] [address] 09/01/2020 12:02:37 09/01/2020 12:44:35 Gynecologic examination [id number] Z01.419 Suggested Calcium with Vitamin D 1200-1500m g daily. Patient advised to get an annual flu shot in the fall and she could obtain at [facility] or [facility] care clinic. Also to obtain TDap vaccinatio n if you have not had one in the last 10 years. Recommend yearly mammograms . Encouraged monthly self breast exams. Encourage safe sexual practices, to use condoms and limit partners if not already in a monogamous relationsh ip. Engage in daily exercise of low impact aerobic exercise 45-60 minutes 4-5 times weekly. Avoid tobacco and illicit drugs as well as using moderation with alcohol intake less than 1-2 8 oz beverages daily. This lifestyle behavior pattern will lead to less health conditions and longer life span. If BMI greater than 25 weight watchers or dietary consult advised. Plans to remove/rep lace IUD prior to exp. All questions have been answered. Patient appears to understand informatio n, but if you have any questions please call or respond to this email. Pain of mu ltiple joints [id number] M25.50 This has become worse recently. I would like for her to schedule appt with primary care for further evaluation . Pt agreed and verbalized understand ing. Fatigue [id number] R53.83 History of anemia. Pt will also have pcp evaluate. [id number] Rosalva Castaneda CNM [place] [address] [address] 04/20/2022 11:33:02 04/21/2022 17:32:17 Gynecologic examination [id number] Z01.419 Z11.51 Suggested Calcium with Vitamin D 1200-1500m g daily. Patient advised to get an annual flu shot in the fall and she could obtain at [facility] or [facility] care clinic. Also to obtain TDap vaccinatio n if you have not had one in the last 10 years. Routine labs with pcp. Recommend yearly mammograms . Encouraged monthly self breast exams. Order given. Encourage safe sexual practices, to use condoms and limit partners if not already in a monogamous relationsh ip. Engage in daily exercise of low impact aerobic exercise 45-60 minutes 4-5 times weekly. Avoid tobacco and illicit drugs as well as using moderation with alcohol intake less than 1-2 8 oz beverages daily. This lifestyle behavior pattern will lead to less health conditions and longer life span. If BMI greater than 25 weight watchers or dietary consult advised.Pl ans on keeping current mirena. All questions have been answered. Patient appears to understand informatio n, but if you have any questions please call or respond to this email. [id number] KYREE Rojas [facility] [address] [address] 07/26/2023 11:56:53 07/26/2023 12:35:26 Gynecologic examination [id number] Z01.419 WWEpap updatedde lined STI screenmamm ogram order givencolon oscopy UTDroutine labs/PCP Suggested Calcium with Vitamin D daily. Patient advised to get an annual flu shot in the fall and she could obtain at [facility] or [facility] clinic. Also to obtain TDap vaccinatio n if you have not had one in the last 10 years. Recommend yearly mammograms . Encouraged monthly self breast exams. Encourage safe sexual practices, to use condoms and limit partners if not already in a monogamous relationsh ip. Engage in regular exercise. Avoid tobacco and illicit drugs. This lifestyle behavior pattern will lead to less health conditions and longer life span. If BMI greater than 25 dietary consult advised. All questions have been answered. Patient appears to understand informatio n, but if you have any questions please call or respond to this email. Screening for malignant neoplasm of breast [id number] Z12.39 Contracept ion care management [id number] Z30.9 mirena IUD will 08/03/2024d iscussed with pt, return for removal/re placement prior to expiration [id number] Javed Banda MD [place] [address] [address] 07/19/2024 16:20:31 07/19/2024 17:32:05 Gynecologic examination [id number] Z01.419 Annual gynecologi mayela exam performed. Patient will come back in a year unless there are new symptoms. Suggest Calcium with Vitamin D if not eating in diet. Patient advised to get annual flu shot. Recommend yearly physicals and preform monthly breast exams. Genetic testing is available for patients with family history of cancer. Engage in safe sexual practices, use condoms. Encouraged to have daily exercise. Avoid tobacco and illicit drugs, moderation of alcohol. If BMI greater than 25 dietary consult advised. If you have any questions please call or email. mammogram- ordered colon cancer screening - colonoscop y done DEXA scan- na Pap smear- today laboratory evaluation - done Health Concerns Section Related Observation LastModified by Organization Detai ls LastModified Time None Recorded Concern Status LastModified by Organization Details LastModified Time None Recorded Advance Directives Directive None Recorded Payers Encounter Date Sequence Insurance Name Policy Number Policy Rutledge Covered Member ID Rutledge Member ID Guarantor Name 09/01/2020 1 [facility] PRIOR TO 10/16/2020 (MEDICAID REPLACEMENT - HMO) Amelia [place] [id number] Amelia [place] 06/03/2021 1 [facility] ON OR AFTER 10/16/20 (MEDICAID REPLACEMENT - HMO) Amelia [place] [id number] Amelia [place] 04/20/2022 1 [facility] ON OR AFTER 10/16/20 (MEDICAID REPLACEMENT - HMO) Amelia [place] [id number] Amelia Burk[place] 07/26/2023 1 [facility] ON OR AFTER 10/16/20 (MEDICAID REPLACEMENT - HMO) Amelia [place] [id number] Amelia [place] 07/19/2024 1 *SELF PAY* Ra nieves [place] Notes Date Note Type Note Provider Name and Address Organization Details Recorded Time 09/01/2020 text/html Annual GYNReport ed bypatient.Menstrual cycle:IUD. Amenorrhea. Urinary symptoms:No hematuria; No incontinence Vulva:No genital lesion Vagina:Normal vaginal discharge Breast:No breast pain; No breast lump; No nipple discharge Sexual complaints:No sexual complaints; No pain during intercourse; Normal libido Menopausal Symptoms:No menopausal symptoms; Normal vaginal lubrication Psychological symptoms:No depression; No anxiety; No PMDD Rosalva butts [facility] 09/01/2020 15:23:11 06/03/2021 text/html Patient presents for IUD removal. Rosalva butts [facility] 06/04/2021 16:14:35 04/20/2022 text/html Annual GYNReport ed bypatient.Urinary symptoms:No hematuria; No incontinence Vulva:No genital lesion Vagina:Normal vaginal discharge Breast:No breast pain; No breast lump; No nipple discharge Sexual complaints:No sexual complaints; No pain during intercourse; Normal libido Menopausal Symptoms:No menopausal symptoms; Normal vaginal lubrication Psychological symptoms:No depression; No anxiety; No PMDD Rosalva butts [facility] 04/20/2022 17:48:49 07/26/2023 text/html Annual GYNReport ed bypatient.Menstrual cycle:Normal menses Urinary symptoms:No hematuria; No incontinence Vulva:No genital lesion Vagina:Normal vaginal discharge Breast:No breast pain; No breast lump; No nipple discharge Current Contraception:Satisfi ed with current contraception; Intrauterine device (iud); mirena IUD, inserted 08/03/2016 Sexual complaints:No sexual complaints; No pain during intercourse; Normal libido Menopausal Symptoms:No menopausal symptoms; Normal vaginal lubrication Psychological symptoms:No depression; No anxiety; No PMDD Preventive measures:Encourage self breast examination; Encourage regular exercise; Encourage no tobacco use; Encourage regular mammograms starting age 40; Needs to schedule mammogram; Up to date on colonoscopy screeningNotes:Сергей t pap 04/2022 - normal mirena IUD, inserted 08/03/2016 : no issues with IUD, desires to continue this method mammogram : last 4-5 yearscolonoscopy done in 2022 : told to repeat in 10 yrs per pt KYREE Rojas [address], [place], [address], [facility] 07/26/2023 12:26:36 07/19/2024 text/html Annual GYNReport ed bypatient.History:no gynecologic complaints Menstrual cycle:Normal menses Urinary symptoms:No hematuria; No incontinence Vulva:No genital lesion Vagina:Normal vaginal discharge Breast:No breast pain; No breast lump; No nipple discharge Current Contraception:Satisfi ed with current contraception; Intrauterine device (iud) Menopausal Symptoms:No menopausal symptoms; Normal vaginal lubrication Psychological symptoms:No anxiety;Depression(Tx ed) Preventive measures:Encourage self breast examination; Encourage regular exercise Javed Banda MD [address], [place], [address], [facility] 07/19/2024 17:25:59 OBGyn Episode No OBEpisode recorded.
--- OUTSIDE RECORDS SUMMARY | 2024-09-06 11:04 | XMS_ITS | Clinical Summary ---
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..] Insurance MEDICAID [employer] Care Teams Horse Stud Worker Relationship Specialty Start Date End Date Chan Goldstein MD [address] [place] [address] PCP - General Family Medicine 01/18/19
== END 2024-09-06 10:59 | disposition home or self-care (01) ==
PROVIDERS: PCP Nurse Practitioner Family; Visit Provider Nurse Practitioner Family
DX: R11.2 Nausea with vomiting, unspecified (principal)
CPT/HCPCS: 74018